=== PATIENT | male | born 1950 | race Caucasian/White ===

== ENCOUNTER 2019-02-16 06:03 | Inpatient (IN) ==
[2019-02-16] MEDS ORDERED: Ipratropium/Albuterol Neb 3 ML IH ONE (06:35)
[2019-02-16] MEDS ORDERED: 0.9 % Sodium Chloride 1,000 ML IVC ONE ×3 (06:35→11:45)
--- NOTE | 2019-02-16 06:38 | Emergency Department Note ---
Disposition Clinical Impression: Pneumonia Qualifiers: Pneumonia type: due to unspecified organism Laterality: bilateral Lung location: lower lobe of lung Qualified Code(s): J18.1 - Lobar pneumonia, unspecified organism Disposition: Admitted As Inpatient Condition: Fair Referrals: Mauricio Guerra MD [Primary Care Provider] - Forms: ED Satisfaction Letter Time of Disposition: 07:59 SOB HPI - General Chief Complaint: ED Shortness of Breath/Dyspnea Stated Complaint: shortness of breath Time Seen by Provider: 02/16/19 06:31 Source: patient, family Mode of arrival: private vehicle Limitations: no limitations Nursing Notes Reviewed: Yes Vital Signs Reviewed: Yes - History of Present Illness Pt Subjective Complaint: shortness of breath, cough Onset (ago): day(s) (2 days) Severity: moderate Consistency/Duration: constant Improves with: nothing Worsens with: exertion Associated symptoms: Reports: fever, sputum production Treatment prior to arrival: none Cough present: Yes Cough Description: Productive Cough Frequency: Intermittent Sputum production: Yes Sputum Color: Yellow - Related Data Home oxygen amount: none Home Medications Medication Instructions Recorded Confirmed Aspirin 81 mg PO HS 03/19/15 02/16/19 Atorvastatin [Lipitor] 10 mg PO HS 03/19/15 02/16/19 Diazepam [Valium] 10 mg PO TID 03/19/15 02/16/19 Esomeprazole Magnesium [Nexium] 40 mg PO DAILY 03/19/15 02/16/19 Gabapentin [Neurontin] 600 - 1,200 mg PO TID PRN 03/19/15 02/16/19 Lisinopril [Zestril] 20 mg PO DAILY PRN 03/19/15 02/16/19 Multivitamin/Iron/Folic Acid 1 each PO DAILY 03/19/15 02/16/19 [Centrum Complete Multivit Tab] Tamsulosin [Flomax] 0.8 mg PO HS 03/19/15 02/16/19 Vitamin E 400 unit PO DAILY 03/19/15 02/16/19 Cholecalciferol (D-3) [Vitamin D] 1,000 unit PO DAILY 06/21/16 02/16/19 [place]-3/Dha/Epa/Fish Oil [Fish Oil 1,000 mg PO DAILY 06/21/16 02/16/19 1,000 mg Softgel] Escitalopram [Lexapro] 10 mg PO DAILY 06/24/16 02/16/19 Allergies Allergy/AdvReac Type Severity Reaction Status Date / Time No Known Allergies Allergy Verified 05/23/17 09:37 All systems ED: reviewed and negative except as stated. Constitutional: Reports: fever, chills ENT ED: Denies: ear pain, throat pain, congestion Cardiovascular: Denies: chest pain, palpitations Respiratory: Reports: cough, dyspnea Gastrointestinal: Denies: abdominal pain, vomiting, diarrhea Integumentary: Denies: rash Neurological: Denies: headache Past Medical History - Past Medical History Attestation: Yes The following information was validated with the patient. Source: patient, old records reviewed, nursing notes reviewed Medical history: Reports: CVA, hyperlipidemia, hypertension Surgical history: Reports: cataract, herniorrhaphy (Right inguinal hernia repair), orthopedic, other, sinus surgery, other Psychiatric history: Reports: anxiety, depression, other - Social History Smoking Status: Former smoker Smokeless Tobacco Status: No Alcohol use: Reports: none Drug use: Reports: none Physical Exam - General Limitations: no limitations General appearance: alert, in no apparent distress - Head Head exam: atraumatic, normocephalic, normal inspection - Eye Eye exam: Present: normal appearance, PERRL, EOMI. Absent: scleral icterus, conjunctival injection, nystagmus - ENT ENT exam: normal exam, normal oropharynx, mucous membranes moist, TM's normal bilaterally, normal external ear exam - Neck Neck exam: Present: normal inspection, full ROM, trachea midline. Absent: meningismus - Chest Chest inspection: Present: normal inspection, symmetric chest wall rise. Absent: tenderness - Respiratory Respiratory exam: Present: normal lung sounds bilaterally. Absent: respiratory distress, wheezes - Cardiovascular Cardiovascular exam: Present: normal rhythm, tachycardia, normal heart sounds - Abdominal Exam Abdominal exam: Present: soft, Non-Tender, normal bowel sounds - Extremities Exam Extremities exam: Present: normal inspection. Absent: pedal edema - Neurological Exam Neurological exam: Present: alert, oriented X3. Absent: motor sensory deficit - Psychiatric Psychiatric exam: Present: normal affect, normal mood - Skin Skin exam: Present: warm, dry. Absent: rash Course Course Narrative: Patient presents with cough and shortness of breath and if she has a fever as well. He will O2 sat on arrival and we have monitored Ventimask Certainly concerning for pneumonia. He does meet SIRS criteria. I will get him some antipyretic and some IV fluids and breathing treatments. Short of breath workup including chest x-ray and lab work. Disposition will be based on diagnostic results and reevaluation. - Reevaluation(s) Reevaluation #1: Chest x-ray shows bilateral lower lobe pneumonia. Although patient came in tachycardic his heart rate is down in the 90s now. His blood pressure was fine when he came in but he did have one reading that dipped into the 90s but that was while sitting him up to do something. Now his systolic is around 115. Clinically he looks much better. He is talkative. We have cut down his oxygen to 5 L through mask and his sat is 93%. We have ordered antibiotics. I spoke with the hospitalist and arranged admission. Time: 07:58 - Consultations Consultation #1: Dr. Arvizu, hospitalist - I discussed case with the hospitalist. He accepted the patient for admission. Time: 07:55 Vital Signs Temperature 101.7 F H 02/16/19 06:04 Pulse Rate 124 02/16/19 06:04 Respiratory Rate 26 02/16/19 06:04 Blood Pressure 120/67 02/16/19 06:04 O2 Sat by Pulse Oximetry 80 02/16/19 06:04 Temperature 101.7 F H 02/16/19 06:04 Pulse Rate 103 02/16/19 06:24 Respiratory Rate 24 02/16/19 06:36 Blood Pressure 132/68 02/16/19 06:24 O2 Sat by Pulse Oximetry 94 02/16/19 06:36 Oxygen Delivery Oxygen Delivery Oximizer Shortness of Breath/Dyspnea - Medical Records Medical records reviewed: Yes I reviewed the patient's medical records. - Lab Data Lab results reviewed: Yes I reviewed the patient's lab results. Result diagrams: 02/16/19 07:24 02/16/19 06:58 Lab Results 02/16/19 02/16/19 02/16/19 Range/Units 06:58 07:24 07:24 WBC 13.4 H (4.3-11.1) K/mcL RBC 4.90 (4.19-5.50) M/mcL Hgb 15.6 (12.9-16.9) g/dL Hct 46.9 (37.5-50.1) % MCV 95.7 (83.0-100.0) fL MCH 31.8 (28.0-33.3) pg MCHC 33.3 (31.6-35.5) g/dL RDW 12.0 (11.5-14.5) % Plt Count 242 (140-400) K/mcL MPV 9.3 L (9.4-12.4) fL Immature Gran % 0.4 (0-4) % Seg Neutrophils % 77.2 % Lymphocytes % 14.7 % Monocytes % 7.0 % Eosinophils % 0.4 % Basophils % 0.3 % Neutrophils # 10.3 H (1.6-8.9) K/mcL Lymphocytes # 2.0 (0.6-4.6) K/mcL Monocytes # 0.9 (0.0-1.3) K/mcL Eosinophils # 0.1 (0.0-0.6) K/mcL Basophils # 0.0 (0.0-0.2) K/mcL Sodium 136 (136-145) mEq/L Potassium 3.7 (3.5-5.1) mEq/L Chloride 99 (98-107) mEq/L Carbon Dioxide 27 (23-29) mEq/L BUN 11 (8-23) mg/dL Creatinine 1.49 H (0.70-1.30) mg/dL Est GFR ( Amer) 57 L (> 60) Est GFR (Non-Af Amer) 47 L (> 60) BUN/Creatinine Ratio 7 (6-26) Glucose 127 H (70-105) mg/dL Calculated Osmolality 283 (280-300) Lactic Acid 2.4 H (0.5-2.2) mmol/L Calcium 8.7 (8.6-10.3) mg/dL Troponin I < 0.03 (< 0.04) ng/mL B-Natriuretic Peptide (Less than 100) pg/mL 02/16/19 Range/Units 07:24 WBC (4.3-11.1) K/mcL RBC (4.19-5.50) M/mcL Hgb (12.9-16.9) g/dL Hct (37.5-50.1) % MCV (83.0-100.0) fL MCH (28.0-33.3) pg MCHC (31.6-35.5) g/dL RDW (11.5-14.5) % Plt Count (140-400) K/mcL MPV (9.4-12.4) fL Immature Gran % (0-4) % Seg Neutrophils % % Lymphocytes % % Monocytes % % Eosinophils % % Basophils % % Neutrophils # (1.6-8.9) K/mcL Lymphocytes # (0.6-4.6) K/mcL Monocytes # (0.0-1.3) K/mcL Eosinophils # (0.0-0.6) K/mcL Basophils # (0.0-0.2) K/mcL Sodium (136-145) mEq/L Potassium (3.5-5.1) mEq/L Chloride (98-107) mEq/L Carbon Dioxide (23-29) mEq/L BUN (8-23) mg/dL Creatinine (0.70-1.30) mg/dL Est GFR ( Amer) (> 60) Est GFR (Non-Af Amer) (> 60) BUN/Creatinine Ratio (6-26) Glucose (70-105) mg/dL Calculated Osmolality (280-300) Lactic Acid (0.5-2.2) mmol/L Calcium (8.6-10.3) mg/dL Troponin I (< 0.04) ng/mL B-Natriuretic Peptide 62 (Less than 100) pg/mL - Radiology Data Radiology results reviewed: Yes I reviewed the patient's radiology results. - EKG Data EKG attestation: Yes I reviewed and interpreted this EKG. EKG results narrative: Twelve-lead EKG performed at 6:03 AM. Ordered, reviewed and interpreted by ED physician shows sinus tachycardia rate 111. Right axis deviation. Good hour progression across to precordium. Nonspecific ST and T-wave abnormalities but no obvious acute ischemic changes. Intervals within normal limits otherwise.
[2019-02-16] MEDS ORDERED: Ibuprofen 800 MG TABLET PO ONE (06:42)
[2019-02-16 07:33] LABS: Basophils % 0.3 %; Eosinophils # 0.1 K/mcL (0.0-0.6); Eosinophils % 0.4 %; Hematocrit 46.9 % (37.5-50.1); Hemoglobin 15.6 g/dL (12.9-16.9); Immature Granulocytes % 0.4 % (0-4); Lymphocytes % 14.7 %; Mean Corpuscular HGB Conc 33.3 g/dL (31.6-35.5); Mean Corpuscular Hemoglobin 31.8 pg (28.0-33.3); Mean Corpuscular Volume 95.7 fL (83.0-100.0); Mean Platelet Volume 9.3 fL (9.4-12.4); Monocytes # 0.9 K/mcL (0.0-1.3); Neutrophils # 10.3 K/mcL (1.6-8.9); Platelet Count 242 K/mcL (140-400); Segmented Neutrophils % 77.2 %; White Blood Count 13.4 K/mcL (4.3-11.1)
[2019-02-16 07:38] LABS: BUN/Creatinine Ratio 7 (6-26); Blood Urea Nitrogen 11 mg/dL (8-23); Calcium 8.7 mg/dL (8.6-10.3); Carbon Dioxide 27 mEq/L (23-29); Chloride 99 mEq/L (98-107); Glucose 127 mg/dL (70-105); Osmolality,Calculated 283 (280-300); Potassium 3.7 mEq/L (3.5-5.1); Sodium 136 mEq/L (136-145); eGFR For African Americans 57 (> 60); eGFR For Non-African Americans 47 (> 60)
[2019-02-16] MEDS ORDERED: Azithromycin 500 MG in D5% in Water 250 ML IVPB ONE (07:50)
[2019-02-16 07:51] LABS: Troponin I < 0.03 ng/mL (< 0.04)
[2019-02-16] MEDS ORDERED: 0.9 % Sodium Chloride 1,000 ML IVC SCH (08:00)
[2019-02-16] MEDS ORDERED: Ondansetron ODT 4 MG TAB.RAPDIS SL PRN (08:00)
[2019-02-16] MEDS ORDERED: Naloxone 0.4 MG/ML INJ IVP PRN (08:00)
[2019-02-16] MEDS ORDERED: Gabapentin 300 MG CAPSULE PO PRN (08:02)
[2019-02-16] MEDS ORDERED: Lisinopril 20 MG TABLET PO PRN (08:02)
[2019-02-16] MEDS ORDERED: cefTRIAXone 1,000 MG in 0.9 % Sodium Chloride Mini Bag 100 ML IVPB SCH (09:00)
[2019-02-16] MEDS: Azithromycin 500 MG in D5% in Water 250 ML IVPB SCH (09:02)
--- NOTE | 2019-02-16 11:45 | Internal Med History&Physical ---
Date of Encounter: 02/16/19 Time of Encounter: 11:05 Assessment and Plan (1) Severe sepsis Current visit: Yes Status: Acute Suspect due to pneumonia. Pro-calcitonin has been ordered. Antibiotics have been started. IV fluid boluses have been ordered. Repeat lactic acid level will be done. (2) Pneumonia Current visit: Yes Status: Acute Continue Rocephin and Zithromax. Add lactobacillus. Pro-calcitonin level has been ordered. Qualifiers: Pneumonia type: due to unspecified organism Laterality: bilateral Lung location: lower lobe of lung Qualified Code(s): J18.1 - Lobar pneumonia, unspecified organism (3) Hypertension Current visit: Yes Status: Chronic Lisinopril will be held due to hypotension. IV fluids have been ordered. Qualifiers: Hypertension type: essential hypertension Qualified Code(s): I10 - Essential (primary) hypertension (4) BPH (benign prostatic hyperplasia) Current visit: Yes Status: Chronic Continue Flomax Qualifiers: Lower urinary tract symptom presence: symptoms present Lower urinary tract symptom detail: unspecified Qualified Code(s): N40.1 - Benign prostatic hyperplasia with lower urinary tract symptoms Internal Medicine - H&P: HPI Chief complaint: Fever and dyspnea Admitted From: Emergency Dept Plans for Post Hospital Care: Home History of present illness: Mr. Carrillo is a 68 year old male who came to emergency room after experiencing increased dyspnea with minimally productive cough, fever up to 103.5, sore throat, and diarrhea over the proceeding 2 days. He initially declined his 's suggestion to come to emergency room but approximately 0500 today requested to come to ER. He was evaluated and found to have evidence of bibasilar infiltrate, leukocytosis with slight left shift, elevated lactic acid level, and azotemia. He was admitted to [facility] floor for ongoing care needs. He reports a grandchild was sick a few days earlier with similar but less severe illness. He denies pain at present time other than chronic facial pain. Respiratory history is significant for having smoked from age [age] up to 2 pack s per day. He does not have documented chronic lung disease. He was diagnosed with RENZO in the past and underwent UPPP and does not presently use CPAP/BiPAP. Past Med Surg Social Fam HX - Past Medical History Medical history: CVA, hyperlipidemia, hypertension Additional medical history: Hypomania, dystonia Psychiatric history: anxiety, depression, other - Past Surgical History Surgical History: cataract, herniorrhaphy (Right inguinal hernia repair), orthopedic, other, sinus surgery, other Additional surgical history: lt knee replacement. bilat elbow. cataracts. T&A. sinus surgery. hernia repair. lt total knee replacement - Social History Smoking Status: Former smoker Smokeless Tobacco Status: No Alcohol use: none Drug use: none - Family History Brother Hx Family Cancer: Yes (Colon cancer) Mother Hx Family Cancer: Yes (Stomach) Internal Medicine - H&P: Meds Aspirin 81 mg PO HS 03/19/15 [History] Atorvastatin [Lipitor] 10 mg PO HS 03/19/15 [History] Diazepam [Valium] 10 mg PO TID 03/19/15 [History] Esomeprazole Magnesium [Nexium] 40 mg PO DAILY 03/19/15 [History] Gabapentin [Neurontin] 600 - 1,200 mg PO TID PRN 03/19/15 [History] Lisinopril [Zestril] 20 mg PO DAILY PRN 03/19/15 [History] Multivitamin/Iron/Folic Acid [Centrum Complete Multivit Tab] 1 each PO DAILY 03/19/15 [History] Tamsulosin [Flomax] 0.8 mg PO HS 03/19/15 [History] Vitamin E 400 unit PO DAILY 03/19/15 [History] Cholecalciferol (D-3) [Vitamin D] 1,000 unit PO DAILY 06/21/16 [History] [place]-3/Dha/Epa/Fish Oil [Fish Oil 1,000 mg Softgel] 1,000 mg PO DAILY 06/21/16 [History] Escitalopram [Lexapro] 10 mg PO DAILY 06/24/16 [History] Allergy/AdvReac Type Severity Reaction Status Date / Time No Known Allergies Allergy Verified 05/23/17 09:37 All Systems PM: A 10-system review of systems was performed and is negative for pertinent findings except as documented above in the HPI. Review of systems: Gen.: His weight has been stable at approximately 108 kg since 10/30/2017. Cardiovascular: He has history of hypertension but no DC heart failure angina DVT or pulmonary embolus Respiratory: As per history of present illness GI: There is no known disorders of liver gallbladder or exocrine pancreas. He had blood loss anemia 2017 and had EGD, colonoscopy, and video endoscopy without etiology determined. He was given blood transfusions and there has been no recurrence of GI bleed. : No history of hematuria dysuria or kidney stones. He has BPH and a chronic kidney cysts felt to be benign. Neurologic: He has had a slight speech impairment and disequilibrium for several years. MRI of brain 08/22/2018 showed no acute intracranial abnormality or obvious infarct. There was opacification of the left maxillary sinus. He has chronic facial pain and is on Neurontin. Endocrine: He has history of hyperlipidemia. He has a thyroid nodule felt to be benign. There is no known diabetes. Hematology/oncology: He has history of anemia from GI bleed as per above. There is no known intrinsic blood disorders or internal malignancies otherwise Psychiatric: He has depression but denies anxiety other mental health issues [place] skeletal: He has ulnar compression neuropathy intermittently bilaterally with numbness of the hands. He has chronic low back pain. He does not have gout or other bone joint or muscle disorders. - Constitutional Vitals: Temp Pulse Resp BP Pulse Ox 98.5 F 87 18 79/50 92 02/16/19 09:23 02/16/19 09:23 02/16/19 09:23 02/16/19 09:23 02/16/19 09:23 Exam: Gen.: He is a well-developed well-nourished male lying in bed who appears minimally dyspneic HEENT: Head is atraumatic and normocephalic. Eyes: EOMI. There is no scleral icterus. Mouth: Mucosa is moist. Neck: Supple and nontender. There is no thyromegaly or adenopathy noted. Heart: Regular without murmurs gallops or ectopics Lungs: No wheezes or crackles are heard. Abdomen: Soft and nontender. No masses or guarding are noted. Extremities: There is no cyanosis edema or clubbing noted. Dorsalis pedis and posterior tibial pulses are 1-2 over 2 bilaterally. Neurologic: Mental status: He is able to answer questions but is not conversational. Cranial nerves: Smile is symmetric. Forehead wrinkles bilaterally. Tongue protrudes midline. EOMI. Motor: There is no pronator drift. Cerebellar: Finger to nose is intact bilaterally. Skin: Warm and dry Internal Med - H&P Results - Labs CBC & Chem 7: 02/16/19 07:24 02/16/19 06:58 Labs: Short CBC 02/16/19 Range/Units 07:24 WBC 13.4 H (4.3-11.1) K/mcL Hgb 15.6 (12.9-16.9) g/dL Hct 46.9 (37.5-50.1) % Plt Count 242 (140-400) K/mcL Neutrophils # 10.3 H (1.6-8.9) K/mcL BMP 02/16/19 06:58 Sodium 136 Potassium 3.7 Chloride 99 Carbon Dioxide 27 BUN 11 Creatinine 1.49 H Glucose 127 H Calcium 8.7 Cardiac Enzymes 02/16/19 Range/Units 06:58 Troponin I < 0.03 (< 0.04) ng/mL - Impressions ITS Impressions Chest X-Ray 02/16/19 06:35 IMPRESSION: Bibasilar airspace disease, representing either aspiration or pneumonia. D/ / 02/16/2019 09:02:51 Ilya Velazquez MD / [facility] Interpreting Provider: Ilya Velazquez MD
[2019-02-16] MEDS ORDERED: Ipratropium/Albuterol Neb 3 ML IH SCH (12:00)
[2019-02-16] MEDS: 0.9 % Sodium Chloride 1,000 ML IVC SCH ×2 (12:27→14:40)
[2019-02-16 12:59] LABS: Basophils % 0.3 %; Eosinophils % 0.1 %; Hematocrit 39.3 % (37.5-50.1); Hemoglobin 13.1 g/dL (12.9-16.9); Immature Granulocytes % 0.4 % (0-4); Lymphocytes # 1.1 K/mcL (0.6-4.6); Mean Corpuscular HGB Conc 33.3 g/dL (31.6-35.5); Mean Corpuscular Hemoglobin 32.3 pg (28.0-33.3); Mean Corpuscular Volume 96.8 fL (83.0-100.0); Mean Platelet Volume 9.2 fL (9.4-12.4); Monocytes # 0.9 K/mcL (0.0-1.3); Monocytes % 8.1 %; Neutrophils # 8.9 K/mcL (1.6-8.9); Platelet Count 195 K/mcL (140-400); Red Blood Count 4.06 M/mcL (4.19-5.50); Red Cell Distribution Width 12.3 % (11.5-14.5); Segmented Neutrophils % 81.1 %; White Blood Count 10.9 K/mcL (4.3-11.1)
[2019-02-16] MEDS: Gabapentin 300 MG CAPSULE PO SCH ×2 (13:03→19:57)
[2019-02-16] MEDS: diazePAM 5 MG TABLET PO SCH ×3 (13:03→19:58)
[2019-02-16 13:11] LABS: Calcium 7.2 mg/dL (8.6-10.3); Potassium 3.9 mEq/L (3.5-5.1)
[2019-02-16] MEDS ORDERED: 0.9 % Sodium Chloride 500 ML IVC ONE (13:41)
[2019-02-16 14:23] LABS: Bilirubin,Urine Negative (Negative); Blood,Urine Moderate (Negative); Clarity,Urine Clear (Clear); Color,Urine Yellow (Yellow); Glucose,Urine (UA) Normal (Normal); Ketones,Urine Negative (Negative); Leukocyte Esterase,Urine Negative (Negative); Nitrite,Urine Negative (Negative); PH,Urine 5.5 pH Units (5.0-8.0); Protein,Urine Negative (Neg-Trace); Urobilinogen,Urine Normal (Normal)
[2019-02-16 14:30] LABS: Granular Casts,Urine Few per lpf (None Seen); Hyaline Casts,Urine Few per lpf (None-Few); Mucus,Urine Few (Few); RBC,Urine 50-100 per hpf (0-3); Renal Epithelial Cells,Urine Few per hpf (None-Few); Squamous Epithelial Cell,Urine Few per lpf (None-Few); WBC,Urine 0-3 per hpf (0-3)
[2019-02-16 14:31] LABS: Bacteria,Urine Few per hpf (None-Few)
[2019-02-16] MEDS: Lactobacillus 1 EACH CAP.SPRINK PO SCH (19:57)
[2019-02-16] MEDS: Aspirin 81 MG TAB.CHEW PO SCH (19:57)
[2019-02-17] MEDS: Acetaminophen 325 MG TABLET PO PRN ×4 (00:03→20:14)
[2019-02-17] MEDS: Gabapentin 300 MG CAPSULE PO SCH ×3 (03:15→20:13)
[2019-02-17 04:43] LABS: Basophils % 0.4 %; Eosinophils % 0.4 %; Hematocrit 43.6 % (37.5-50.1); Hemoglobin 14.4 g/dL (12.9-16.9); Immature Granulocytes % 0.5 % (0-4); Lymphocytes % 12.2 %; Mean Corpuscular Hemoglobin 32.1 pg (28.0-33.3); Mean Corpuscular Volume 97.1 fL (83.0-100.0); Mean Platelet Volume 9.1 fL (9.4-12.4); Monocytes # 0.7 K/mcL (0.0-1.3); Neutrophils # 6.4 K/mcL (1.6-8.9); Platelet Count 185 K/mcL (140-400); Red Blood Count 4.49 M/mcL (4.19-5.50); Red Cell Distribution Width 12.5 % (11.5-14.5); Segmented Neutrophils % 78.5 %; White Blood Count 8.2 K/mcL (4.3-11.1)
[2019-02-17 04:55] LABS: INR 1.3; Prothrombin Time 14.8 Seconds (9.4-12.1)
[2019-02-17 07:39] LABS: Alanine Aminotransferase 15 Units/L (7-52); Albumin 3.1 g/dL (3.5-5.7); Alkaline Phosphatase 116 Units/L (34-104); Aspartate Amino Transferase 16 Units/L (13-39); BUN/Creatinine Ratio 11 (6-26); Bilirubin,Total 0.5 mg/dL (0.3-1.0); Blood Urea Nitrogen 13 mg/dL (8-23); Carbon Dioxide 28 mEq/L (23-29); Chloride 109 mEq/L (98-107); Globulin 3.1 g/dL (2.4-3.5); Glucose 100 mg/dL (70-105); Osmolality,Calculated 292 (280-300); Potassium 4.1 mEq/L (3.5-5.1); Sodium 141 mEq/L (136-145); Total Protein 6.2 g/dL (6.4-8.9); eGFR For African Americans > 60 (> 60); eGFR For Non-African Americans > 60 (> 60)
[2019-02-17] MEDS: cefTRIAXone 1,000 MG in Water for inj. (sterile) 10 ML IVP SCH (08:09)
[2019-02-17] MEDS: diazePAM 5 MG TABLET PO SCH ×3 (08:10→20:13)
[2019-02-17] MEDS: Azithromycin 500 MG in D5% in Water 250 ML IVPB SCH (08:11)
[2019-02-17] MEDS: Lactobacillus 1 EACH CAP.SPRINK PO SCH ×2 (08:11→20:14)
[2019-02-17] MEDS: Albuterol 2.5 MG/3 ML NEBULIZER IH PRN ×2 (08:43→18:07)
--- NOTE | 2019-02-17 09:36 | Electrocardiograph Report ---
[employer] Test Date: 2019-02-16 Pat Name: Tommy Carrillo Department: EDP-16 Room: [facility] Gender: M Lsat Instructor: : 1950 Requested By: Ralph Stockton Order Number: [id number] Reading MD: Akin Tidwell Measurements Intervals [place] Rate: 111 P: 78 [place]: 158 QRS: 98 QRSD: 97 T: 90 QT: 357 QTc: 486 Interpretive Statements Sinus tachycardia Borderline right axis deviation Nonspecific T abnormalities, lateral leads Borderline prolonged QT interval Electronically Signed On 02-17-2019 9:34:50 EDT by Akin Tidwell
--- NOTE | 2019-02-17 10:15 | Internal Med Progress Note ---
Date of Encounter: 02/17/19 Time of Encounter: 10:07 - Assessment and plan (1) Severe sepsis Current Visit: Yes Status: Acute Assessment and plan: February 17. Improved. Lactic acid now normal. WBC decreased with less left shift. Continue Rocephin and Zithromax with lactobacillus. (2) Pneumonia Current Visit: Yes Status: Acute Assessment and plan: February 17. As above Qualifiers: Pneumonia type: due to unspecified organism Laterality: bilateral Lung location: lower lobe of lung Qualified Code(s): J18.1 - Lobar pneumonia, unspecified organism (3) Hypertension Current Visit: Yes Status: Chronic Assessment and plan: February 17. Blood pressure improved and back to satisfactory level. Remain off lisinopril. Qualifiers: Hypertension type: essential hypertension Qualified Code(s): I10 - Essential (primary) hypertension (4) BPH (benign prostatic hyperplasia) Current Visit: Yes Status: Chronic Assessment and plan: February 17. Continue Flomax Qualifiers: Lower urinary tract symptom presence: symptoms present Lower urinary tract symptom detail: unspecified Qualified Code(s): N40.1 - Benign prostatic hyperplasia with lower urinary tract symptoms (5) Azotemia Current Visit: Yes Status: Acute Assessment and plan: February 17. Creatinine has decreased from 1.74 to normal level of 1.15 with estimat ed GFR> 60. - Subjective Interval history: February 17. He has no new complaints and feels better. - Constitutional Vitals: Temp Pulse Resp BP Pulse Ox 100.1 F H 95 18 135/83 93 02/17/19 06:46 02/17/19 06:46 02/17/19 08:44 02/17/19 06:46 02/17/19 08:44 Exam: He is resting comfortably in bed and appears in no acute distress. He is more alert and talkative today. Skin shows decreased erythema overall. He is wearing oxygen by nasal cannula. I reviewed his medications and lab results. Internal Medicine: Result - Labs CBC & Chem 7: 02/17/19 04:35 02/17/19 04:35 Labs: Short CBC 02/16/19 02/17/19 Range/Units 12:24 04:35 WBC 10.9 8.2 (4.3-11.1) K/mcL Hgb 13.1 D 14.4 (12.9-16.9) g/dL Hct 39.3 43.6 (37.5-50.1) % Plt Count 195 185 (140-400) K/mcL Neutrophils # 8.9 6.4 (1.6-8.9) K/mcL BMP 02/16/19 02/17/19 12:24 04:35 Sodium 138 141 Potassium 3.9 4.1 Chloride 105 109 H Carbon Dioxide 25 28 BUN 13 13 Creatinine 1.74 H 1.15 Glucose 131 H 100 Calcium 7.2 L 8.0 L Liver Function 02/17/19 Range/Units 04:35 Total Bilirubin 0.5 (0.3-1.0) mg/dL AST 16 (13-39) Units/L ALT 15 (7-52) Units/L Alkaline Phosphatase 116 H (34-104) Units/L Albumin 3.1 L (3.5-5.7) g/dL Urine 02/16/19 Range/Units 14:05 Urine Color Yellow (Yellow) Urine Clarity Clear (Clear) Urine pH 5.5 (5.0-8.0) pH Units Ur Specific [place] 1.010 (1.010-1.025) Urine Protein Negative (Neg-Trace) mg/dL Urine Glucose (UA) Normal (Normal) mg/dL - ABG Interpretation ABG results: PT/INR, D-dimer PT 14.8 Seconds (9.4-12.1) H 02/17/19 04:35 - Impressions Impressions Chest X-Ray 02/16/19 06:35 IMPRESSION: Bibasilar airspace disease, representing either aspiration or pneumonia. D/ / 02/16/2019 09:02:51 Ilya Velazquez MD / [facility] Interpreting Provider: Ilya Velazquez MD Consult Discharge Plan - Plan Referrals: Mauricio Guerra MD [Primary Care Provider] - 1 week
[2019-02-17] MEDS: Aspirin 81 MG TAB.CHEW PO SCH (20:14)
[2019-02-18] MEDS: Gabapentin 300 MG CAPSULE PO SCH ×3 (04:49→20:09)
[2019-02-18 07:38] LABS: Basophils % 0.5 %; Eosinophils # 0.3 K/mcL (0.0-0.6); Eosinophils % 4.5 %; Hematocrit 41.9 % (37.5-50.1); Hemoglobin 13.7 g/dL (12.9-16.9); Immature Granulocytes % 0.3 % (0-4); Lymphocytes # 1.4 K/mcL (0.6-4.6); Lymphocytes % 23.3 %; Mean Corpuscular HGB Conc 32.7 g/dL (31.6-35.5); Mean Corpuscular Hemoglobin 32.1 pg (28.0-33.3); Mean Corpuscular Volume 98.1 fL (83.0-100.0); Monocytes # 0.5 K/mcL (0.0-1.3); Neutrophils # 3.6 K/mcL (1.6-8.9); Platelet Count 198 K/mcL (140-400); Red Blood Count 4.27 M/mcL (4.19-5.50); Red Cell Distribution Width 12.6 % (11.5-14.5); Segmented Neutrophils % 62.4 %; White Blood Count 5.8 K/mcL (4.3-11.1)
[2019-02-18] MEDS: Lactobacillus 1 EACH CAP.SPRINK PO SCH ×2 (08:22→20:09)
[2019-02-18] MEDS: cefTRIAXone 1,000 MG in Water for inj. (sterile) 10 ML IVP SCH (08:22)
[2019-02-18] MEDS: diazePAM 5 MG TABLET PO SCH ×3 (08:22→20:09)
[2019-02-18] MEDS: Azithromycin 500 MG in D5% in Water 250 ML IVPB SCH (08:23)
[2019-02-18 08:25] LABS: BUN/Creatinine Ratio 11 (6-26); Blood Urea Nitrogen 11 mg/dL (8-23); Calcium 8.3 mg/dL (8.6-10.3); Carbon Dioxide 32 mEq/L (23-29); Chloride 107 mEq/L (98-107); Glucose 113 mg/dL (70-105); Osmolality,Calculated 296 (280-300); Potassium 4.2 mEq/L (3.5-5.1); Sodium 143 mEq/L (136-145); eGFR For African Americans > 60 (> 60); eGFR For Non-African Americans > 60 (> 60)
--- NOTE | 2019-02-18 09:49 | Internal Med Progress Note ---
Date of Encounter: 02/18/19 Time of Encounter: 09:42 - Assessment and plan (1) Severe sepsis Current Visit: Yes Status: Acute Assessment and plan: February 17. Improved. Lactic acid now normal. WBC decreased with less left shift. Continue Rocephin and Zithromax with lactobacillus. February 18. WBC further decreased with lessened left shift. Continue present Rx. Anticipate discharge home tomorrow if stable. (2) Pneumonia Current Visit: Yes Status: Acute Assessment and plan: February 17. As above Qualifiers: Pneumonia type: due to unspecified organism Laterality: bilateral Lung location: lower lobe of lung Qualified Code(s): J18.1 - Lobar pneumonia, unspecified organism (3) Hypertension Current Visit: Yes Status: Chronic Assessment and plan: February 17. Blood pressure improved and back to satisfactory level. Remain off lisinopril. Qualifiers: Hypertension type: essential hypertension Qualified Code(s): I10 - Essential (primary) hypertension (4) BPH (benign prostatic hyperplasia) Current Visit: Yes Status: Chronic Assessment and plan: February 17. Continue Flomax February 18. Continue Flomax and start Proscar. Discontinue [place] catheter. Qualifiers: Lower urinary tract symptom presence: symptoms present Lower urinary tract symptom detail: unspecified Qualified Code(s): N40.1 - Benign prostatic hyperplasia with lower urinary tract symptoms (5) Azotemia Current Visit: Yes Status: Acute Assessment and plan: February 17. Creatinine has decreased from 1.74 to normal level of 1.15 with estima madhavi GFR> 60. February 18. BUN and creatinine further decreased to 11 and 1.02 respectively. - Subjective Interval history: February 17. He has no new complaints and feels better. February 18. He has no new complaints. He states he has cough productive of occasional yellow sputum. He denies significant pain. - Constitutional Vitals: Temp Pulse Resp BP Pulse Ox 98.4 F 72 17 127/78 97 02/18/19 07:00 02/18/19 07:00 02/18/19 07:00 02/18/19 07:00 02/18/19 07:00 Exam: He is resting comfortably in bed and appears in no acute distress. His affect is overall cheerful. He is wearing oxygen by nasal cannula. I reviewed his medications and lab results. Internal Medicine: Result - Labs CBC & Chem 7: 02/18/19 07:31 02/18/19 07:31 Labs: Short CBC 02/18/19 Range/Units 07:31 WBC 5.8 (4.3-11.1) K/mcL Hgb 13.7 (12.9-16.9) g/dL Hct 41.9 (37.5-50.1) % Plt Count 198 (140-400) K/mcL Neutrophils # 3.6 (1.6-8.9) K/mcL BMP 02/18/19 07:31 Sodium 143 Potassium 4.2 Chloride 107 Carbon Dioxide 32 H BUN 11 Creatinine 1.02 Glucose 113 H Calcium 8.3 L - ABG Interpretation ABG results: PT/INR, D-dimer PT 14.8 Seconds (9.4-12.1) H 02/17/19 04:35 Consult Discharge Plan - Plan Referrals: Mauricio Guerra MD [Primary Care Provider] - 1 week
[2019-02-18] MEDS: Finasteride 5 MG TABLET PO SCH (11:48)
[2019-02-18] MEDS: Aspirin 81 MG TAB.CHEW PO SCH (20:09)
[2019-02-19] MEDS: Gabapentin 300 MG CAPSULE PO SCH ×2 (03:30→12:18)
[2019-02-19 06:34] VITALS: BP 142/95
--- NOTE | 2019-02-19 09:37 | Discharge Summary ---
Orders not resulted at time of discharge: Pending orders 02/16/19 07:24 Culture,Blood [] Stat Date of Encounter: 02/19/19 Time of Encounter: 09:28 - Discharge Diagnosis (1) Severe sepsis Priority: Primary Status: Resolved (2) Pneumonia Priority: Secondary Status: Acute Qualifiers: Pneumonia type: due to unspecified organism Laterality: bilateral Lung location: lower lobe of lung Qualified Code(s): J18.1 - Lobar pneumonia, unspecified organism (3) Hypertension Priority: Secondary Status: Chronic Qualifiers: Hypertension type: essential hypertension Qualified Code(s): I10 - Essential (primary) hypertension (4) BPH (benign prostatic hyperplasia) Priority: Secondary Status: Chronic Qualifiers: Lower urinary tract symptom presence: symptoms present Lower urinary tract symptom detail: unspecified Qualified Code(s): N40.1 - Benign prostatic hyperplasia with lower urinary tract symptoms (5) Azotemia Priority: Secondary Status: Resolved Hospital course: Mr. Carrillo is a 68 year old male who came to emergency room after experiencing increased dyspnea with minimally productive cough, fever up to 103.5, sore throat, and diarrhea over the proceeding 2 days. He initially declined his 's suggestion to come to emergency room but approximately 0500 today requested to come to ER. He was evaluated and found to have evidence of bibasilar infiltrate, leukocytosis with slight left shift, elevated lactic acid level, and azotemia. He was admitted to [facility] floor for ongoing care needs. Initial orders were written by the emergency room physician. I saw him on February 16 and performed a history and physical. He was started empirically on Rocephin and Zithromax with lactobacillus. Pro-calcitonin level returned elevated at 3.27. He had good clinical response with gradual normalization of blood pressure. He remained afebrile the last 24 hours of hospitalization. Pro- calcitonin level decreased to 1.52 by February 18. His mental status returned to what I felt was baseline. On February 19 he felt stable for discharge home. He will continue with antibiotic and probiotic for 5 additional days at discharge. Room air oximetry will be checked on 6 minute walk prior to discharge. Lisinopril was held during hospitalization due to hypotension. IV fluids were given. His blood pressure olegario to borderline elevated by time of discharge and he will restart lisinopril at discharge. He had urinary retention and required [place] catheter insertion. Flomax was continued and Proscar was started. [place] catheter was discontinued and he was able to void satisfactorily prior to discharge. He will remain on Flomax and Proscar. He will follow with his PCP Dr. Guerra within 1 week. - Time Spent with Patient Total time spent providing and/or coordinating discharge services: - Discharge Medications Prescriptions: New Cefuroxime PO [Ceftin] 500 mg PO Q12HR #10 tablet Lactobacillus [Culturelle] 1 each PO BID #10 cap.sprink Finasteride [Proscar] 5 mg PO DAILY #30 tablet Azithromycin [Zithromax] 250 mg PO DAILY #5 tablet Continued [place]-3/Dha/Epa/Fish Oil [Fish Oil 1,000 mg Softgel] 1,000 mg PO DAILY Tamsulosin [Flomax] 0.8 mg PO HS Lisinopril [Zestril] 20 mg PO DAILY PRN PRN Reason: Blood Pressure - High Diazepam [Valium] 10 mg PO TID Atorvastatin [Lipitor] 10 mg PO HS Aspirin 81 mg PO HS Multivitamin/Iron/Folic Acid [Centrum Complete Multivit Tab] 1 each PO DAILY Gabapentin [Neurontin] 600 - 1,200 mg PO TID PRN PRN Reason: Pain Vitamin E 400 unit PO DAILY Esomeprazole Magnesium [Nexium] 40 mg PO DAILY Escitalopram [Lexapro] 10 mg PO DAILY Home Medications: Aspirin 81 mg PO HS 03/19/15 [History] Atorvastatin [Lipitor] 10 mg PO HS 03/19/15 [History] Diazepam [Valium] 10 mg PO TID 03/19/15 [History] Esomeprazole Magnesium [Nexium] 40 mg PO DAILY 03/19/15 [History] Gabapentin [Neurontin] 600 - 1,200 mg PO TID PRN 03/19/15 [History] Lisinopril [Zestril] 20 mg PO DAILY PRN 03/19/15 [History] Multivitamin/Iron/Folic Acid [Centrum Complete Multivit Tab] 1 each PO DAILY 03/19/15 [History] Tamsulosin [Flomax] 0.8 mg PO HS 03/19/15 [History] Vitamin E 400 unit PO DAILY 03/19/15 [History] [place]-3/Dha/Epa/Fish Oil [Fish Oil 1,000 mg Softgel] 1,000 mg PO DAILY 06/21/16 [History] Escitalopram [Lexapro] 10 mg PO DAILY 06/24/16 [History] Azithromycin [Zithromax] 250 mg PO DAILY #5 tablet 02/19/19 [Rx] Cefuroxime PO [Ceftin] 500 mg PO Q12HR #10 tablet 02/19/19 [Rx] Finasteride [Proscar] 5 mg PO DAILY #30 tablet 02/19/19 [Rx] Lactobacillus [Culturelle] 1 each PO BID #10 cap.sprink 02/19/19 [Rx] Allergies/Adverse Reactions: Allergy/AdvReac Type Severity Reaction Status Date / Time No Known Allergies Allergy Verified 05/23/17 09:37 Date of admission: 02/16/19 11:59 Primary care physician: Mauricio Guerra MD - Constitutional Vitals: Temp Pulse Resp BP Pulse Ox 98.3 F 67 18 142/95 93 02/19/19 06:33 02/19/19 06:33 02/19/19 06:33 02/19/19 06:33 02/19/19 06:33 - Patient Status Disposition: Home, Self-Care Condition: Fair - Discharge Instructions Follow Up With: Mauricio Guerra MD [Primary Care Provider] - 1 week - Diet and Activity Activity: resume usual activities as tolerated Diet: advance to your usual diet
[2019-02-19] MEDS: Azithromycin 500 MG in D5% in Water 250 ML IVPB SCH (09:50)
[2019-02-19] MEDS: Lactobacillus 1 EACH CAP.SPRINK PO SCH (09:55)
[2019-02-19] MEDS: diazePAM 5 MG TABLET PO SCH (09:56)
[2019-02-19] MEDS: Finasteride 5 MG TABLET PO SCH (09:56)
[2019-02-19] MEDS: cefTRIAXone 1,000 MG in Water for inj. (sterile) 10 ML IVP SCH (10:03)
== END 2019-02-19 13:55 | disposition home or self-care (01) | DRG 871 ==
LOC: EMEROOPIK 06:03 → INPPIK 06:03
PROVIDERS: ADMIT Internal Medicine; ATTEND Internal Medicine

== ENCOUNTER 2020-03-23 10:58 | Inpatient (IN) ==
[2020-03-23] MEDS ORDERED: methylPREDNISolone 125 MG/2 ML VIAL IVP ONE (11:03)
[2020-03-23] MEDS ORDERED: cefTRIAXone 2,000 MG in Water for inj. (sterile) 10 ML IVP ONE (11:03)
[2020-03-23] MEDS ORDERED: Azithromycin 500 MG in 0.9 % Sodium Chloride 250 ML IVPB ONE (11:03)
[2020-03-23] MEDS: 0.9 % Sodium Chloride 1,000 ML IVC SCH ×2 (11:22→22:53)
[2020-03-23 11:30] LABS: Basophils # 0.1 K/mcL (0.0-0.2); Basophils % 0.4 %; Eosinophils # 0.4 K/mcL (0.0-0.6); Eosinophils % 2.9 %; Hematocrit 45.5 % (37.5-50.1); Hemoglobin 15.4 g/dL (12.9-16.9); Immature Granulocytes % 0.5 % (0-4); Lymphocytes # 1.2 K/mcL (0.6-4.6); Lymphocytes % 9.7 %; Mean Corpuscular HGB Conc 33.8 g/dL (31.6-35.5); Mean Corpuscular Hemoglobin 31.5 pg (28.0-33.3); Mean Platelet Volume 9.1 fL (9.4-12.4); Monocytes % 7.6 %; Platelet Count 351 K/mcL (140-400); Red Blood Count 4.89 M/mcL (4.19-5.50); Red Cell Distribution Width 12.4 % (11.5-14.5); Segmented Neutrophils % 78.9 %; White Blood Count 12.7 K/mcL (4.3-11.1)
[2020-03-23 11:41] LABS: Activated Partial Thrombo Time 32.2 Seconds (26.0-36.0); INR 1.1; Prothrombin Time 12.4 Seconds (9.4-12.1)
[2020-03-23 11:48] LABS: Alanine Aminotransferase 20 Units/L (7-52); Albumin 3.6 g/dL (3.5-5.7); Alkaline Phosphatase 144 Units/L (34-104); Aspartate Amino Transferase 15 Units/L (13-39); BUN/Creatinine Ratio 19 (6-26); Bilirubin,Direct 0.1 mg/dL (0.0-0.2); Bilirubin,Indirect 0.3 mg/dL (0.0-1.0); Bilirubin,Total 0.4 mg/dL (0.3-1.0); Blood Urea Nitrogen 16 mg/dL (8-23); Calcium 9.1 mg/dL (8.6-10.3); Carbon Dioxide 31 mEq/L (23-29); Chloride 101 mEq/L (98-107); Globulin 3.7 g/dL (2.4-3.5); Glucose 113 mg/dL (70-105); Osmolality,Calculated 294 (280-300); Potassium 4.1 mEq/L (3.5-5.1); Sodium 141 mEq/L (136-145); Total Protein 7.3 g/dL (6.4-8.9); Troponin I < 0.03 ng/mL (< 0.04); eGFR For African Americans > 60 (> 60); eGFR For Non-African Americans > 60 (> 60)
[2020-03-23 13:33] LABS: Adenovirus Not Detected (Not Detect); Bordetella Pertussis Not Detected (Not Detect); Chlamydophila pneumoniae Not Detected (Not Detect); Coronavirus 229E Not Detected (Not Detect); Coronavirus HKU1 Not Detected (Not Detect); Coronavirus NL63 Not Detected (Not Detect); Coronavirus OC43 Not Detected (Not Detect); Human Metapneumovirus Not Detected (Not Detect); Human Rhinovirus/Enterovirus Not Detected (Not Detect); Influenza A Subtype 2009 H1 Not Detected (Not Detect); Influenza B Not Detected (Not Detect); Mycoplasma pneumoniae Not Detected (Not Detect); Parainfluenza Virus 1 Not Detected (Not Detect); Parainfluenza Virus 2 Not Detected (Not Detect); Parainfluenza Virus 3 Not Detected (Not Detect); Parainfluenza Virus 4 Not Detected (Not Detect); Respiratory Syncytial Virus Not Detected (Not Detect)
[2020-03-23] MEDS ORDERED: Naloxone 0.4 MG/ML INJ IVP PRN (14:31)
[2020-03-23] MEDS ORDERED: lisinopriL 10 MG TABLET PO PRN (14:38)
[2020-03-23] MEDS ORDERED: Mag Hydrox/Al Hydrox/Simeth 30 ML UDC PO PRN (14:59)
[2020-03-23] MEDS ORDERED: Ondansetron 4 MG/2 ML VIAL IVP PRN (14:59)
[2020-03-23] MEDS ORDERED: MOM Conc 10 ML UD.LIQ PO PRN (14:59)
[2020-03-23] MEDS ORDERED: Albuterol 2.5 MG/3 ML NEBULIZER IH PRN (16:20)
[2020-03-23] MEDS ORDERED: GuaiFENesin/Dextromethorphan TABLET PO PRN (16:24)
[2020-03-23] MEDS ORDERED: cloNIDine HCL 0.1 MG TABLET PO PRN (16:32)
[2020-03-23] MEDS: diazePAM 5 MG TABLET PO SCH ×2 (17:20→22:53)
[2020-03-23] MEDS: Aspirin 81 MG TAB.CHEW PO SCH (22:53)
[2020-03-23] MEDS: Gabapentin 300 MG CAPSULE PO SCH (22:53)
[2020-03-23] MEDS: Acetaminophen 325 MG TABLET PO PRN (23:06)
[2020-03-24] MEDS: 0.9 % Sodium Chloride 1,000 ML IVC SCH (06:47)
[2020-03-24 07:09] LABS: BUN/Creatinine Ratio 24 (6-26); Blood Urea Nitrogen 18 mg/dL (8-23); Calcium 8.9 mg/dL (8.6-10.3); Carbon Dioxide 32 mEq/L (23-29); Chloride 107 mEq/L (98-107); Glucose 108 mg/dL (70-105); Osmolality,Calculated 304 (280-300); Potassium 4.7 mEq/L (3.5-5.1); Sodium 146 mEq/L (136-145); eGFR For African Americans > 60 (> 60); eGFR For Non-African Americans > 60 (> 60)
[2020-03-24 07:17] LABS: Basophils % 0.1 %; Hematocrit 44.1 % (37.5-50.1); Hemoglobin 14.5 g/dL (12.9-16.9); Immature Granulocytes % 0.4 % (0-4); Lymphocytes # 1.6 K/mcL (0.6-4.6); Lymphocytes % 11.3 %; Mean Corpuscular HGB Conc 32.9 g/dL (31.6-35.5); Mean Corpuscular Hemoglobin 31.5 pg (28.0-33.3); Mean Corpuscular Volume 95.7 fL (83.0-100.0); Mean Platelet Volume 9.6 fL (9.4-12.4); Monocytes # 1.1 K/mcL (0.0-1.3); Monocytes % 7.9 %; Neutrophils # 11.5 K/mcL (1.6-8.9); Platelet Count 397 K/mcL (140-400); Red Blood Count 4.61 M/mcL (4.19-5.50); Red Cell Distribution Width 12.7 % (11.5-14.5); Segmented Neutrophils % 80.3 %; White Blood Count 14.3 K/mcL (4.3-11.1)
[2020-03-24] MEDS: diazePAM 5 MG TABLET PO SCH ×3 (08:16→21:00)
[2020-03-24] MEDS: Gabapentin 300 MG CAPSULE PO SCH ×2 (08:16→21:01)
[2020-03-24] MEDS: MethylPREDNISolone 40 MG/ML VIAL IVP SCH ×3 (08:17→23:34)
[2020-03-24] MEDS ORDERED: lisinopriL 10 MG TABLET PO SCH (09:00)
[2020-03-24] MEDS ORDERED: CARIPRAZINE 3 MG PO SCH (09:00)
[2020-03-24] MEDS ORDERED: QUEtiapine Fumarate 25 MG TABLET PO SCH (09:00)
[2020-03-24] MEDS ORDERED: CIALIS 5 MG PO SCH (09:00)
[2020-03-24] MEDS: CARIPRAZINE 3 MG PO SCH (13:56)
[2020-03-24] MEDS: Azithromycin 500 MG in 0.9 % Sodium Chloride 250 ML IVPB SCH (16:33)
[2020-03-24 17:15] LABS: Bilirubin,Urine Negative (Negative); Blood,Urine Small (Negative); Clarity,Urine Clear (Clear); Color,Urine Yellow (Yellow); Glucose,Urine (UA) Normal (Normal); Ketones,Urine Negative (Negative); Leukocyte Esterase,Urine Negative (Negative); Nitrite,Urine Negative (Negative); Protein,Urine Negative (Neg-Trace); Urobilinogen,Urine Normal (Normal)
[2020-03-24 18:01] LABS: Bacteria,Urine Few per hpf (None-Few); Mucus,Urine Few per lpf (None-Few); WBC,Urine 0-3 per hpf (0-3)
[2020-03-24] MEDS: Aspirin 81 MG TAB.CHEW PO SCH (21:05)
[2020-03-25] MEDS ORDERED: D5% in Water 1,000 ML IVC PRN (04:38)
[2020-03-25] MEDS ORDERED: *HR* Dextrose 50 % in Water (Vial) 50 ML VIAL IVP PRN (04:38)
[2020-03-25] MEDS ORDERED: Dextrose Gel 15 GM/37.5 ML TUBE PO PRN ×2 (04:38)
[2020-03-25] MEDS ORDERED: cloNIDine HCL 0.1 MG TABLET GTUBE PRN (08:27)
[2020-03-25] MEDS ORDERED: Mag Hydrox/Al Hydrox/Simeth 30 ML UDC GTUBE PRN (08:33)
[2020-03-25] MEDS ORDERED: MOM Conc 10 ML UD.LIQ GTUBE PRN (08:34)
[2020-03-25 08:40] LABS: Basophils % 0.1 %; Hematocrit 45.2 % (37.5-50.1); Hemoglobin 14.7 g/dL (12.9-16.9); Immature Granulocytes % 0.4 % (0-4); Lymphocytes # 1.5 K/mcL (0.6-4.6); Lymphocytes % 10.5 %; Mean Corpuscular HGB Conc 32.5 g/dL (31.6-35.5); Mean Corpuscular Hemoglobin 31.5 pg (28.0-33.3); Mean Corpuscular Volume 96.8 fL (83.0-100.0); Mean Platelet Volume 9.5 fL (9.4-12.4); Monocytes # 0.5 K/mcL (0.0-1.3); Monocytes % 3.6 %; Platelet Count 388 K/mcL (140-400); Red Blood Count 4.67 M/mcL (4.19-5.50); Red Cell Distribution Width 12.4 % (11.5-14.5); Segmented Neutrophils % 85.4 %
[2020-03-25 08:48] LABS: BUN/Creatinine Ratio 27 (6-26); Blood Urea Nitrogen 20 mg/dL (8-23); Calcium 9.1 mg/dL (8.6-10.3); Carbon Dioxide 32 mEq/L (23-29); Chloride 102 mEq/L (98-107); Glucose 116 mg/dL (70-105); Osmolality,Calculated 298 (280-300); Potassium 4.2 mEq/L (3.5-5.1); Sodium 142 mEq/L (136-145); eGFR For African Americans > 60 (> 60); eGFR For Non-African Americans > 60 (> 60)
[2020-03-25] MEDS: Gabapentin 300 MG CAPSULE GTUBE SCH ×2 (08:58→21:44)
[2020-03-25] MEDS: lisinopriL 10 MG TABLET GTUBE SCH (08:59)
[2020-03-25] MEDS: diazePAM 5 MG TABLET PO SCH ×3 (08:59→21:44)
[2020-03-25] MEDS: QUEtiapine Fumarate 25 MG TABLET GTUBE SCH (09:00)
[2020-03-25] MEDS: CARIPRAZINE 3 MG PO SCH (09:00)
[2020-03-25] MEDS: MethylPREDNISolone 40 MG/ML VIAL IVP SCH ×2 (09:00→16:46)
[2020-03-25] MEDS: cefTRIAXone 1,000 MG in 0.9 % Sodium Chloride Mini Bag 100 ML IVPB SCH (09:01)
[2020-03-25] MEDS: Azithromycin 500 MG in 0.9 % Sodium Chloride 250 ML IVPB SCH (16:47)
[2020-03-25] MEDS: Aspirin 81 MG TAB.CHEW GTUBE SCH (21:45)
[2020-03-26] MEDS: MethylPREDNISolone 40 MG/ML VIAL IVP SCH ×4 (00:50→23:49)
[2020-03-26] MEDS: Acetaminophen 325 MG TABLET PO PRN ×2 (05:37→11:17)
[2020-03-26 06:30] LABS: Basophils % 0.1 %; Hematocrit 45.1 % (37.5-50.1); Hemoglobin 15.1 g/dL (12.9-16.9); Immature Granulocytes % 0.4 % (0-4); Lymphocytes # 1.2 K/mcL (0.6-4.6); Lymphocytes % 8.6 %; Mean Corpuscular HGB Conc 33.5 g/dL (31.6-35.5); Mean Corpuscular Hemoglobin 31.5 pg (28.0-33.3); Mean Corpuscular Volume 94.2 fL (83.0-100.0); Mean Platelet Volume 9.7 fL (9.4-12.4); Monocytes # 0.4 K/mcL (0.0-1.3); Monocytes % 2.6 %; Neutrophils # 12.5 K/mcL (1.6-8.9); Platelet Count 401 K/mcL (140-400); Red Blood Count 4.79 M/mcL (4.19-5.50); Red Cell Distribution Width 12.2 % (11.5-14.5); Segmented Neutrophils % 88.3 %; White Blood Count 14.2 K/mcL (4.3-11.1)
[2020-03-26 06:50] LABS: BUN/Creatinine Ratio 32 (6-26); Blood Urea Nitrogen 23 mg/dL (8-23); Calcium 9.1 mg/dL (8.6-10.3); Carbon Dioxide 32 mEq/L (23-29); Chloride 102 mEq/L (98-107); Glucose 122 mg/dL (70-105); Osmolality,Calculated 299 (280-300); Potassium 4.3 mEq/L (3.5-5.1); Sodium 142 mEq/L (136-145); eGFR For African Americans > 60 (> 60); eGFR For Non-African Americans > 60 (> 60)
[2020-03-26] MEDS: cefTRIAXone 1,000 MG in 0.9 % Sodium Chloride Mini Bag 100 ML IVPB SCH (08:11)
[2020-03-26] MEDS: lisinopriL 10 MG TABLET GTUBE SCH (08:11)
[2020-03-26] MEDS: QUEtiapine Fumarate 25 MG TABLET GTUBE SCH (08:12)
[2020-03-26] MEDS: diazePAM 5 MG TABLET PO SCH ×3 (08:12→22:06)
[2020-03-26] MEDS: Gabapentin 300 MG CAPSULE GTUBE SCH ×2 (08:12→22:06)
[2020-03-26] MEDS: CARIPRAZINE 3 MG PO SCH (08:13)
[2020-03-26] MEDS: Azithromycin 500 MG in 0.9 % Sodium Chloride 250 ML IVPB SCH (17:13)
[2020-03-26] MEDS: Aspirin 81 MG TAB.CHEW GTUBE SCH (22:06)
[2020-03-27] MEDS: QUEtiapine Fumarate 25 MG TABLET GTUBE SCH (09:17)
[2020-03-27] MEDS: diazePAM 5 MG TABLET PO SCH (09:17)
[2020-03-27] MEDS: MethylPREDNISolone 40 MG/ML VIAL IVP SCH (09:17)
[2020-03-27] MEDS: Gabapentin 300 MG CAPSULE GTUBE SCH (09:17)
[2020-03-27] MEDS: lisinopriL 10 MG TABLET GTUBE SCH (09:17)
[2020-03-27] MEDS: cefTRIAXone 1,000 MG in 0.9 % Sodium Chloride Mini Bag 100 ML IVPB SCH (09:18)
[2020-03-27 11:12] VITALS: BP 136/73
[2020-03-27] MEDS: CARIPRAZINE 3 MG PO SCH (12:11)
== END 2020-03-27 12:39 | disposition other institution (70) | DRG 871 ==
LOC: SUPCPDRO → INPPIK 10:58 → EMEROOPIK 10:58 → INPPIK 14:43
PROVIDERS: ADMIT Family Medicine; ATTEND Family Medicine

== ENCOUNTER 2020-03-27 13:28 | Inpatient (IN) ==
[~2020-03-27 13:28] MED LIST: Albuterol 2.5 MG/3 ML NEBULIZER IH PRN; lisinopriL 10 MG TABLET PO PRN
[2020-03-27] MEDS: diazePAM 5 MG TABLET PO SCH ×2 (16:00→21:17)
[2020-03-27] MEDS ORDERED: Aspirin 81 MG TAB.CHEW PO SCH (21:00)
[2020-03-27] MEDS: Gabapentin 300 MG CAPSULE PO SCH (21:18)
[2020-03-28 06:23] LABS: Basophils # 0.1 K/mcL (0.0-0.2); Basophils % 0.7 %; Eosinophils % 0.3 %; Hematocrit 50.2 % (37.5-50.1); Hemoglobin 16.9 g/dL (12.9-16.9); Immature Granulocytes % 2.1 % (0-4); Lymphocytes # 3.1 K/mcL (0.6-4.6); Lymphocytes % 30.5 %; Mean Corpuscular HGB Conc 33.7 g/dL (31.6-35.5); Mean Corpuscular Hemoglobin 31.3 pg (28.0-33.3); Mean Platelet Volume 9.2 fL (9.4-12.4); Monocytes # 0.9 K/mcL (0.0-1.3); Neutrophils # 5.8 K/mcL (1.6-8.9); Platelet Count 393 K/mcL (140-400); Red Cell Distribution Width 12.1 % (11.5-14.5); Segmented Neutrophils % 57.4 %; White Blood Count 10.1 K/mcL (4.3-11.1)
[2020-03-28 06:42] LABS: BUN/Creatinine Ratio 33 (6-26); Blood Urea Nitrogen 26 mg/dL (8-23); Carbon Dioxide 37 mEq/L (23-29); Chloride 99 mEq/L (98-107); Glucose 81 mg/dL (70-105); Osmolality,Calculated 300 (280-300); Potassium 4.1 mEq/L (3.5-5.1); Sodium 143 mEq/L (136-145); eGFR For African Americans > 60 (> 60); eGFR For Non-African Americans > 60 (> 60)
[2020-03-28] MEDS: (Omega-3/Dha/Epa/Fish Oil [Fish Oil 1,000 Mg Softgel] PO SCH (08:36)
[2020-03-28] MEDS: diazePAM 5 MG TABLET PO SCH ×3 (08:36→21:14)
[2020-03-28] MEDS: Gabapentin 300 MG CAPSULE PO SCH (08:36)
[2020-03-28] MEDS: Azithromycin 250 MG TABLET PO SCH (08:36)
[2020-03-28] MEDS: Vitamin E 200 UNIT (90MG) CAPSULE PO SCH (08:37)
[2020-03-28] MEDS ORDERED: lisinopriL 10 MG TABLET GTUBE PRN (08:39)
[2020-03-28] MEDS ORDERED: QUEtiapine Fumarate 25 MG TABLET PO SCH (09:00)
[2020-03-28] MEDS ORDERED: Multivit/Ca/Min/Fe/FA 1 TAB TABLET PO SCH (09:00)
[2020-03-28] MEDS: Gabapentin 300 MG CAPSULE GTUBE SCH (21:15)
[2020-03-28] MEDS: Aspirin 81 MG TAB.CHEW GTUBE SCH (21:15)
[2020-03-29] MEDS: Gabapentin 300 MG CAPSULE GTUBE SCH ×2 (09:13→21:04)
[2020-03-29] MEDS: Vitamin E 200 UNIT (90MG) CAPSULE PO SCH (09:14)
[2020-03-29] MEDS: Azithromycin 250 MG TABLET PO SCH (09:14)
[2020-03-29] MEDS: diazePAM 5 MG TABLET PO SCH ×3 (09:14→21:05)
[2020-03-29] MEDS: (Omega-3/Dha/Epa/Fish Oil [Fish Oil 1,000 Mg Softgel] PO SCH (09:14)
[2020-03-29] MEDS: Multivit/Ca/Min/Fe/FA 1 TAB TABLET GTUBE SCH (09:14)
[2020-03-29] MEDS: Erythromycin OPTH Oint LEFT EYE SCH ×3 (09:14→21:04)
[2020-03-29] MEDS: QUEtiapine Fumarate 25 MG TABLET GTUBE SCH (09:14)
[2020-03-29] MEDS: Aspirin 81 MG TAB.CHEW GTUBE SCH (21:05)
[2020-03-30] MEDS: diazePAM 5 MG TABLET PO SCH ×3 (08:05→19:36)
[2020-03-30] MEDS: lisinopriL 10 MG TABLET GTUBE SCH (08:05)
[2020-03-30] MEDS: Gabapentin 300 MG CAPSULE GTUBE SCH ×2 (08:06→19:36)
[2020-03-30] MEDS: Vitamin E 200 UNIT (90MG) CAPSULE PO SCH (08:06)
[2020-03-30] MEDS: Azithromycin 250 MG TABLET PO SCH (08:06)
[2020-03-30] MEDS: Multivit/Ca/Min/Fe/FA 1 TAB TABLET GTUBE SCH (08:06)
[2020-03-30] MEDS: QUEtiapine Fumarate 25 MG TABLET GTUBE SCH (08:06)
[2020-03-30] MEDS: Erythromycin OPTH Oint LEFT EYE SCH ×3 (08:06→19:36)
[2020-03-30] MEDS: (Omega-3/Dha/Epa/Fish Oil [Fish Oil 1,000 Mg Softgel] PO SCH (08:07)
[2020-03-30] MEDS: Aspirin 81 MG TAB.CHEW GTUBE SCH (19:36)
[2020-03-31 07:10] LABS: BUN/Creatinine Ratio 40 (6-26); Blood Urea Nitrogen 27 mg/dL (8-23); Calcium 8.8 mg/dL (8.6-10.3); Carbon Dioxide 35 mEq/L (23-29); Chloride 98 mEq/L (98-107); Glucose 94 mg/dL (70-105); Osmolality,Calculated 295 (280-300); Potassium 4.2 mEq/L (3.5-5.1); Sodium 140 mEq/L (136-145); eGFR For African Americans > 60 (> 60); eGFR For Non-African Americans > 60 (> 60)
[2020-03-31] MEDS: QUEtiapine Fumarate 25 MG TABLET GTUBE SCH (07:30)
[2020-03-31] MEDS: Vitamin E 200 UNIT (90MG) CAPSULE PO SCH (07:30)
[2020-03-31] MEDS: Gabapentin 300 MG CAPSULE GTUBE SCH ×2 (07:31→19:35)
[2020-03-31] MEDS: Multivit/Ca/Min/Fe/FA 1 TAB TABLET GTUBE SCH (07:31)
[2020-03-31] MEDS: (Omega-3/Dha/Epa/Fish Oil [Fish Oil 1,000 Mg Softgel] PO SCH (07:31)
[2020-03-31] MEDS: lisinopriL 10 MG TABLET GTUBE SCH (07:31)
[2020-03-31] MEDS: diazePAM 5 MG TABLET PO SCH ×2 (07:31→19:34)
[2020-03-31] MEDS: Erythromycin OPTH Oint LEFT EYE SCH ×3 (07:31→19:35)
[2020-03-31] MEDS: Aspirin 81 MG TAB.CHEW GTUBE SCH (19:34)
[2020-04-01] MEDS: diazePAM 5 MG TABLET PO SCH (09:35)
[2020-04-01] MEDS: Vitamin E 200 UNIT (90MG) CAPSULE PO SCH (09:35)
[2020-04-01] MEDS: Gabapentin 300 MG CAPSULE GTUBE SCH ×2 (09:35→19:48)
[2020-04-01] MEDS: QUEtiapine Fumarate 25 MG TABLET GTUBE SCH (09:35)
[2020-04-01] MEDS: lisinopriL 10 MG TABLET GTUBE SCH (09:35)
[2020-04-01] MEDS: Multivit/Ca/Min/Fe/FA 1 TAB TABLET GTUBE SCH (09:35)
[2020-04-01] MEDS: Erythromycin OPTH Oint LEFT EYE SCH ×3 (09:35→19:49)
[2020-04-01] MEDS: (Omega-3/Dha/Epa/Fish Oil [Fish Oil 1,000 Mg Softgel] PO SCH (09:57)
[2020-04-01] MEDS: Aspirin 81 MG TAB.CHEW GTUBE SCH (19:48)
[2020-04-01] MEDS: diazePAM 2 MG TABLET PO SCH (19:48)
[2020-04-02] MEDS: Cariprazine Hcl [Vraylar] 3 MG GTUBE SCH (09:13)
[2020-04-02] MEDS: Multivitamin Liquid 15 ML UDC GTUBE SCH (09:14)
[2020-04-02] MEDS: lisinopriL 10 MG TABLET GTUBE SCH (09:14)
[2020-04-02] MEDS: Gabapentin 300 MG CAPSULE GTUBE SCH ×2 (09:14→22:23)
[2020-04-02] MEDS: QUEtiapine Fumarate 25 MG TABLET GTUBE SCH (09:14)
[2020-04-02] MEDS: diazePAM 2 MG TABLET PO SCH ×2 (09:15→22:28)
[2020-04-02] MEDS: Vitamin E 200 UNIT (90MG) CAPSULE PO SCH (09:15)
[2020-04-02] MEDS: (Omega-3/Dha/Epa/Fish Oil [Fish Oil 1,000 Mg Softgel] PO SCH (09:15)
[2020-04-02] MEDS: Erythromycin OPTH Oint LEFT EYE SCH ×3 (09:18→22:28)
[2020-04-02] MEDS: Bisacodyl 10 MG RECTAL SUPPOSITORY RC PRN (11:22)
[2020-04-02] MEDS: Docusate Oral Soln 100 MG/10 ML UDC GTUBE SCH ×2 (12:18→22:22)
[2020-04-02] MEDS: Aspirin 81 MG TAB.CHEW GTUBE SCH (22:23)
[2020-04-03] MEDS: (Omega-3/Dha/Epa/Fish Oil [Fish Oil 1,000 Mg Softgel] PO SCH (10:18)
[2020-04-03] MEDS: Docusate Oral Soln 100 MG/10 ML UDC GTUBE SCH ×2 (10:31→22:06)
[2020-04-03] MEDS: Erythromycin OPTH Oint LEFT EYE SCH ×3 (10:38→22:06)
[2020-04-03] MEDS: Vitamin E 200 UNIT (90MG) CAPSULE PO SCH (10:38)
[2020-04-03] MEDS: lisinopriL 10 MG TABLET GTUBE SCH (10:38)
[2020-04-03] MEDS: Cariprazine Hcl [Vraylar] 3 MG GTUBE SCH (10:38)
[2020-04-03] MEDS: diazePAM 2 MG TABLET PO SCH ×2 (10:38→22:05)
[2020-04-03] MEDS: Gabapentin 300 MG CAPSULE GTUBE SCH ×2 (10:39→22:06)
[2020-04-03] MEDS: Multivitamin Liquid 15 ML UDC GTUBE SCH (10:39)
[2020-04-03] MEDS: Aspirin 81 MG TAB.CHEW GTUBE SCH (22:05)
[2020-04-03] MEDS: QUEtiapine Fumarate 25 MG TABLET GTUBE SCH (22:05)
[2020-04-04] MEDS: Vitamin E 200 UNIT (90MG) CAPSULE PO SCH (09:10)
[2020-04-04] MEDS: Docusate Oral Soln 100 MG/10 ML UDC GTUBE SCH ×2 (09:10→20:30)
[2020-04-04] MEDS: Gabapentin 300 MG CAPSULE GTUBE SCH ×2 (09:10→20:31)
[2020-04-04] MEDS: lisinopriL 10 MG TABLET GTUBE SCH (09:10)
[2020-04-04] MEDS: Multivitamin Liquid 15 ML UDC GTUBE SCH (09:10)
[2020-04-04] MEDS: (Omega-3/Dha/Epa/Fish Oil [Fish Oil 1,000 Mg Softgel] PO SCH (09:11)
[2020-04-04] MEDS: Cariprazine Hcl [Vraylar] 3 MG GTUBE SCH (09:11)
[2020-04-04] MEDS: diazePAM 2 MG TABLET PO SCH ×2 (09:11→20:31)
[2020-04-04] MEDS: Erythromycin OPTH Oint LEFT EYE SCH ×3 (09:11→20:31)
[2020-04-04] MEDS: Aspirin 81 MG TAB.CHEW GTUBE SCH (20:31)
[2020-04-04] MEDS: QUEtiapine Fumarate 25 MG TABLET GTUBE SCH (20:31)
[2020-04-05] MEDS: Gabapentin 300 MG CAPSULE GTUBE SCH ×2 (08:57→20:44)
[2020-04-05] MEDS: Vitamin E 200 UNIT (90MG) CAPSULE PO SCH (08:57)
[2020-04-05] MEDS: lisinopriL 10 MG TABLET GTUBE SCH (08:57)
[2020-04-05] MEDS: Multivitamin Liquid 15 ML UDC GTUBE SCH (08:58)
[2020-04-05] MEDS: (Omega-3/Dha/Epa/Fish Oil [Fish Oil 1,000 Mg Softgel] PO SCH (08:58)
[2020-04-05] MEDS: diazePAM 2 MG TABLET PO SCH ×2 (08:58→20:44)
[2020-04-05] MEDS: Erythromycin OPTH Oint LEFT EYE SCH ×3 (08:58→20:43)
[2020-04-05] MEDS: Cariprazine Hcl [Vraylar] 3 MG GTUBE SCH (08:58)
[2020-04-05] MEDS: Docusate Oral Soln 100 MG/10 ML UDC GTUBE SCH ×2 (08:58→20:43)
[2020-04-05] MEDS: Aspirin 81 MG TAB.CHEW GTUBE SCH (20:44)
[2020-04-05] MEDS: QUEtiapine Fumarate 25 MG TABLET GTUBE SCH (20:44)
[2020-04-06] MEDS: Multivitamin Liquid 15 ML UDC GTUBE SCH (09:02)
[2020-04-06] MEDS: (Omega-3/Dha/Epa/Fish Oil [Fish Oil 1,000 Mg Softgel] PO SCH (09:03)
[2020-04-06] MEDS: Gabapentin 300 MG CAPSULE GTUBE SCH ×2 (09:03→21:25)
[2020-04-06] MEDS: Docusate Oral Soln 100 MG/10 ML UDC GTUBE SCH ×2 (09:03→21:23)
[2020-04-06] MEDS: diazePAM 2 MG TABLET PO SCH ×2 (09:03→21:24)
[2020-04-06] MEDS: Erythromycin OPTH Oint LEFT EYE SCH ×3 (09:03→21:23)
[2020-04-06] MEDS: Vitamin E 200 UNIT (90MG) CAPSULE PO SCH (09:04)
[2020-04-06] MEDS: lisinopriL 10 MG TABLET GTUBE SCH (09:04)
[2020-04-06] MEDS: Cariprazine Hcl [Vraylar] 3 MG GTUBE SCH (09:08)
[2020-04-06] MEDS: Aspirin 81 MG TAB.CHEW GTUBE SCH (21:23)
[2020-04-06] MEDS: QUEtiapine Fumarate 25 MG TABLET GTUBE SCH (21:24)
[2020-04-07] MEDS: diazePAM 2 MG TABLET PO SCH ×2 (09:34→22:35)
[2020-04-07] MEDS: Multivitamin Liquid 15 ML UDC GTUBE SCH (09:34)
[2020-04-07] MEDS: Gabapentin 300 MG CAPSULE GTUBE SCH ×2 (09:34→22:36)
[2020-04-07] MEDS: Erythromycin OPTH Oint LEFT EYE SCH ×3 (09:34→22:35)
[2020-04-07] MEDS: Docusate Oral Soln 100 MG/10 ML UDC GTUBE SCH ×2 (09:34→22:34)
[2020-04-07] MEDS: lisinopriL 10 MG TABLET GTUBE SCH (09:34)
[2020-04-07] MEDS: Vitamin E 200 UNIT (90MG) CAPSULE PO SCH (09:35)
[2020-04-07] MEDS: Cariprazine Hcl [Vraylar] 3 MG GTUBE SCH (09:42)
[2020-04-07] MEDS: (Omega-3/Dha/Epa/Fish Oil [Fish Oil 1,000 Mg Softgel] PO SCH (09:43)
[2020-04-07] MEDS: QUEtiapine Fumarate 25 MG TABLET GTUBE SCH (22:35)
[2020-04-07] MEDS: Aspirin 81 MG TAB.CHEW GTUBE SCH (22:35)
[2020-04-08 06:54] LABS: Basophils % 0.3 %; Eosinophils # 0.3 K/mcL (0.0-0.6); Eosinophils % 3.1 %; Hematocrit 45.2 % (37.5-50.1); Hemoglobin 14.7 g/dL (12.9-16.9); Immature Granulocytes % 0.3 % (0-4); Lymphocytes # 2.1 K/mcL (0.6-4.6); Lymphocytes % 19.5 %; Mean Corpuscular HGB Conc 32.5 g/dL (31.6-35.5); Mean Corpuscular Hemoglobin 30.7 pg (28.0-33.3); Mean Corpuscular Volume 94.4 fL (83.0-100.0); Mean Platelet Volume 9.9 fL (9.4-12.4); Monocytes # 0.8 K/mcL (0.0-1.3); Monocytes % 7.6 %; Neutrophils # 7.5 K/mcL (1.6-8.9); Platelet Count 295 K/mcL (140-400); Red Blood Count 4.79 M/mcL (4.19-5.50); Red Cell Distribution Width 11.9 % (11.5-14.5); Segmented Neutrophils % 69.2 %; White Blood Count 10.9 K/mcL (4.3-11.1)
[2020-04-08 07:08] LABS: BUN/Creatinine Ratio 27 (6-26); Blood Urea Nitrogen 18 mg/dL (8-23); Calcium 8.9 mg/dL (8.6-10.3); Carbon Dioxide 35 mEq/L (23-29); Chloride 100 mEq/L (98-107); Glucose 84 mg/dL (70-105); Osmolality,Calculated 293 (280-300); Potassium 3.8 mEq/L (3.5-5.1); Sodium 141 mEq/L (136-145); eGFR For African Americans > 60 (> 60); eGFR For Non-African Americans > 60 (> 60)
[2020-04-08] MEDS: Multivitamin Liquid 15 ML UDC GTUBE SCH (07:54)
[2020-04-08] MEDS: Docusate Oral Soln 100 MG/10 ML UDC GTUBE SCH ×2 (07:54→21:14)
[2020-04-08] MEDS: Vitamin E 200 UNIT (90MG) CAPSULE PO SCH (07:54)
[2020-04-08] MEDS: diazePAM 2 MG TABLET PO SCH ×2 (07:54→21:14)
[2020-04-08] MEDS: lisinopriL 10 MG TABLET GTUBE SCH (07:54)
[2020-04-08] MEDS: Gabapentin 300 MG CAPSULE GTUBE SCH ×2 (07:54→21:14)
[2020-04-08] MEDS: (Omega-3/Dha/Epa/Fish Oil [Fish Oil 1,000 Mg Softgel] PO SCH (07:55)
[2020-04-08] MEDS: Cariprazine Hcl [Vraylar] 3 MG GTUBE SCH (07:55)
[2020-04-08] MEDS: Erythromycin OPTH Oint LEFT EYE SCH (07:55)
[2020-04-08] MEDS: QUEtiapine Fumarate 25 MG TABLET GTUBE SCH (21:14)
[2020-04-08] MEDS: Aspirin 81 MG TAB.CHEW GTUBE SCH (21:15)
[2020-04-09] MEDS: Multivitamin Liquid 15 ML UDC GTUBE SCH (07:58)
[2020-04-09] MEDS: (Omega-3/Dha/Epa/Fish Oil [Fish Oil 1,000 Mg Softgel] PO SCH (07:59)
[2020-04-09] MEDS: diazePAM 2 MG TABLET PO SCH ×2 (07:59→21:13)
[2020-04-09] MEDS: Docusate Oral Soln 100 MG/10 ML UDC GTUBE SCH ×2 (07:59→21:14)
[2020-04-09] MEDS: Gabapentin 300 MG CAPSULE GTUBE SCH ×2 (07:59→21:13)
[2020-04-09] MEDS: lisinopriL 10 MG TABLET GTUBE SCH (07:59)
[2020-04-09] MEDS: Vitamin E 200 UNIT (90MG) CAPSULE PO SCH (07:59)
[2020-04-09] MEDS: Cariprazine Hcl [Vraylar] 3 MG GTUBE SCH (08:02)
[2020-04-09] MEDS: Aspirin 81 MG TAB.CHEW GTUBE SCH (21:13)
[2020-04-09] MEDS: QUEtiapine Fumarate 25 MG TABLET GTUBE SCH (21:13)
[2020-04-10] MEDS: Multivitamin Liquid 15 ML UDC GTUBE SCH (08:52)
[2020-04-10] MEDS: Vitamin E 200 UNIT (90MG) CAPSULE PO SCH (08:52)
[2020-04-10] MEDS: diazePAM 2 MG TABLET PO SCH ×2 (08:53→20:04)
[2020-04-10] MEDS: Gabapentin 300 MG CAPSULE GTUBE SCH ×2 (08:53→20:04)
[2020-04-10] MEDS: lisinopriL 10 MG TABLET GTUBE SCH (08:53)
[2020-04-10] MEDS: (Omega-3/Dha/Epa/Fish Oil [Fish Oil 1,000 Mg Softgel] PO SCH (08:53)
[2020-04-10] MEDS: Docusate Oral Soln 100 MG/10 ML UDC GTUBE SCH ×2 (08:54→20:04)
[2020-04-10] MEDS: Cariprazine Hcl [Vraylar] 3 MG GTUBE SCH (09:09)
[2020-04-10] MEDS: QUEtiapine Fumarate 25 MG TABLET GTUBE SCH (20:04)
[2020-04-10] MEDS: Aspirin 81 MG TAB.CHEW GTUBE SCH (20:04)
[2020-04-11] MEDS: Gabapentin 300 MG CAPSULE GTUBE SCH ×2 (08:47→21:53)
[2020-04-11] MEDS: diazePAM 2 MG TABLET PO SCH ×2 (08:47→21:54)
[2020-04-11] MEDS: Vitamin E 200 UNIT (90MG) CAPSULE PO SCH (08:47)
[2020-04-11] MEDS: lisinopriL 10 MG TABLET GTUBE SCH (08:47)
[2020-04-11] MEDS: Cariprazine Hcl [Vraylar] 3 MG GTUBE SCH (08:47)
[2020-04-11] MEDS: (Omega-3/Dha/Epa/Fish Oil [Fish Oil 1,000 Mg Softgel] PO SCH (08:48)
[2020-04-11] MEDS: Docusate Oral Soln 100 MG/10 ML UDC GTUBE SCH ×2 (08:48→21:53)
[2020-04-11] MEDS: Multivitamin Liquid 15 ML UDC GTUBE SCH (08:48)
[2020-04-11] MEDS: QUEtiapine Fumarate 25 MG TABLET GTUBE SCH (21:54)
[2020-04-11] MEDS: Aspirin 81 MG TAB.CHEW GTUBE SCH (21:54)
[2020-04-12] MEDS: Vitamin E 200 UNIT (90MG) CAPSULE PO SCH (07:58)
[2020-04-12] MEDS: Multivitamin Liquid 15 ML UDC GTUBE SCH (07:58)
[2020-04-12] MEDS: Gabapentin 300 MG CAPSULE GTUBE SCH ×2 (07:58→20:25)
[2020-04-12] MEDS: Cariprazine Hcl [Vraylar] 3 MG GTUBE SCH (07:59)
[2020-04-12] MEDS: (Omega-3/Dha/Epa/Fish Oil [Fish Oil 1,000 Mg Softgel] PO SCH (07:59)
[2020-04-12] MEDS: diazePAM 2 MG TABLET PO SCH ×2 (07:59→20:25)
[2020-04-12] MEDS: lisinopriL 10 MG TABLET GTUBE SCH (07:59)
[2020-04-12] MEDS: Docusate Oral Soln 100 MG/10 ML UDC GTUBE SCH ×2 (07:59→20:25)
[2020-04-12] MEDS: QUEtiapine Fumarate 25 MG TABLET GTUBE SCH (20:25)
[2020-04-12] MEDS: Aspirin 81 MG TAB.CHEW GTUBE SCH (20:25)
[2020-04-13] MEDS: Cariprazine Hcl [Vraylar] 3 MG GTUBE SCH (08:01)
[2020-04-13] MEDS: diazePAM 2 MG TABLET PO SCH ×2 (08:02→20:40)
[2020-04-13] MEDS: Multivitamin Liquid 15 ML UDC GTUBE SCH (08:02)
[2020-04-13] MEDS: (Omega-3/Dha/Epa/Fish Oil [Fish Oil 1,000 Mg Softgel] PO SCH (08:02)
[2020-04-13] MEDS: lisinopriL 10 MG TABLET GTUBE SCH (08:02)
[2020-04-13] MEDS: Vitamin E 200 UNIT (90MG) CAPSULE PO SCH (08:02)
[2020-04-13] MEDS: Docusate Oral Soln 100 MG/10 ML UDC GTUBE SCH ×2 (08:02→20:40)
[2020-04-13] MEDS: Gabapentin 300 MG CAPSULE GTUBE SCH ×2 (08:02→20:40)
[2020-04-13] MEDS: QUEtiapine Fumarate 25 MG TABLET GTUBE SCH (20:41)
[2020-04-13] MEDS: Aspirin 81 MG TAB.CHEW GTUBE SCH (20:41)
[2020-04-14 07:10] LABS: Basophils % 0.4 %; Eosinophils # 0.4 K/mcL (0.0-0.6); Eosinophils % 5.4 %; Hematocrit 44.4 % (37.5-50.1); Hemoglobin 14.7 g/dL (12.9-16.9); Immature Granulocytes % 0.1 % (0-4); Lymphocytes # 2.3 K/mcL (0.6-4.6); Lymphocytes % 27.7 %; Mean Corpuscular HGB Conc 33.1 g/dL (31.6-35.5); Mean Corpuscular Hemoglobin 31.4 pg (28.0-33.3); Mean Corpuscular Volume 94.9 fL (83.0-100.0); Mean Platelet Volume 9.7 fL (9.4-12.4); Monocytes # 0.6 K/mcL (0.0-1.3); Monocytes % 6.8 %; Neutrophils # 4.9 K/mcL (1.6-8.9); Platelet Count 249 K/mcL (140-400); Red Blood Count 4.68 M/mcL (4.19-5.50); Segmented Neutrophils % 59.6 %; White Blood Count 8.2 K/mcL (4.3-11.1)
[2020-04-14 07:16] LABS: BUN/Creatinine Ratio 25 (6-26); Blood Urea Nitrogen 18 mg/dL (8-23); Calcium 9.2 mg/dL (8.6-10.3); Carbon Dioxide 35 mEq/L (23-29); Chloride 99 mEq/L (98-107); Glucose 99 mg/dL (70-105); Osmolality,Calculated 294 (280-300); Potassium 3.9 mEq/L (3.5-5.1); Sodium 141 mEq/L (136-145); eGFR For African Americans > 60 (> 60); eGFR For Non-African Americans > 60 (> 60)
[2020-04-14] MEDS: Gabapentin 300 MG CAPSULE GTUBE SCH ×2 (08:02→19:48)
[2020-04-14] MEDS: lisinopriL 10 MG TABLET GTUBE SCH (08:02)
[2020-04-14] MEDS: diazePAM 2 MG TABLET PO SCH ×2 (08:02→19:49)
[2020-04-14] MEDS: Docusate Oral Soln 100 MG/10 ML UDC GTUBE SCH ×2 (08:03→19:48)
[2020-04-14] MEDS: Vitamin E 200 UNIT (90MG) CAPSULE PO SCH (08:03)
[2020-04-14] MEDS: Cariprazine Hcl [Vraylar] 3 MG GTUBE SCH (08:03)
[2020-04-14] MEDS: (Omega-3/Dha/Epa/Fish Oil [Fish Oil 1,000 Mg Softgel] PO SCH (08:04)
[2020-04-14] MEDS: Multivitamin Liquid 15 ML UDC GTUBE SCH (08:10)
[2020-04-14] MEDS: GuaiFENesin Liq 200 MG/10 ML UDC GTUBE PRN ×2 (16:13→22:52)
[2020-04-14] MEDS: Aspirin 81 MG TAB.CHEW GTUBE SCH (19:48)
[2020-04-14] MEDS: QUEtiapine Fumarate 25 MG TABLET GTUBE SCH (19:48)
[2020-04-15] MEDS: diazePAM 2 MG TABLET PO SCH ×2 (10:22→20:48)
[2020-04-15] MEDS: Vitamin E 200 UNIT (90MG) CAPSULE PO SCH (10:22)
[2020-04-15] MEDS: lisinopriL 10 MG TABLET GTUBE SCH (10:22)
[2020-04-15] MEDS: Gabapentin 300 MG CAPSULE GTUBE SCH ×2 (10:23→20:47)
[2020-04-15] MEDS: Cariprazine Hcl [Vraylar] 3 MG GTUBE SCH (10:23)
[2020-04-15] MEDS: Multivitamin Liquid 15 ML UDC GTUBE SCH (10:23)
[2020-04-15] MEDS: (Omega-3/Dha/Epa/Fish Oil [Fish Oil 1,000 Mg Softgel] PO SCH (10:23)
[2020-04-15] MEDS: Docusate Oral Soln 100 MG/10 ML UDC GTUBE SCH ×2 (10:27→20:48)
[2020-04-15] MEDS: GuaiFENesin Liq 200 MG/10 ML UDC GTUBE PRN (20:48)
[2020-04-15] MEDS: Aspirin 81 MG TAB.CHEW GTUBE SCH (20:48)
[2020-04-15] MEDS: QUEtiapine Fumarate 25 MG TABLET GTUBE SCH (20:48)
[2020-04-16] MEDS: Multivitamin Liquid 15 ML UDC GTUBE SCH (08:47)
[2020-04-16] MEDS: diazePAM 2 MG TABLET PO SCH ×2 (08:47→19:43)
[2020-04-16] MEDS: Gabapentin 300 MG CAPSULE GTUBE SCH ×2 (08:47→19:43)
[2020-04-16] MEDS: Docusate Oral Soln 100 MG/10 ML UDC GTUBE SCH ×2 (08:47→19:44)
[2020-04-16] MEDS: Vitamin E 200 UNIT (90MG) CAPSULE PO SCH (08:47)
[2020-04-16] MEDS: lisinopriL 10 MG TABLET GTUBE SCH (08:47)
[2020-04-16] MEDS: Cariprazine Hcl [Vraylar] 3 MG GTUBE SCH (08:48)
[2020-04-16] MEDS: (Omega-3/Dha/Epa/Fish Oil [Fish Oil 1,000 Mg Softgel] PO SCH (08:48)
[2020-04-16] MEDS: GuaiFENesin Liq 200 MG/10 ML UDC GTUBE PRN (09:05)
[2020-04-16] MEDS: Aspirin 81 MG TAB.CHEW GTUBE SCH (19:44)
[2020-04-16] MEDS: QUEtiapine Fumarate 25 MG TABLET GTUBE SCH (19:44)
[2020-04-17] MEDS: lisinopriL 10 MG TABLET GTUBE SCH (09:04)
[2020-04-17] MEDS: Gabapentin 300 MG CAPSULE GTUBE SCH ×2 (09:04→20:09)
[2020-04-17] MEDS: diazePAM 2 MG TABLET PO SCH ×2 (09:04→20:05)
[2020-04-17] MEDS: Cariprazine Hcl [Vraylar] 3 MG GTUBE SCH (09:04)
[2020-04-17] MEDS: Vitamin E 200 UNIT (90MG) CAPSULE PO SCH (09:04)
[2020-04-17] MEDS: Multivitamin Liquid 15 ML UDC GTUBE SCH (09:05)
[2020-04-17] MEDS: Docusate Oral Soln 100 MG/10 ML UDC GTUBE SCH ×2 (09:05→19:57)
[2020-04-17] MEDS: (Omega-3/Dha/Epa/Fish Oil [Fish Oil 1,000 Mg Softgel] PO SCH (09:46)
[2020-04-17] MEDS: GuaiFENesin Liq 200 MG/10 ML UDC GTUBE PRN ×2 (16:55→23:56)
[2020-04-17] MEDS: Aspirin 81 MG TAB.CHEW GTUBE SCH (19:56)
[2020-04-17] MEDS: QUEtiapine Fumarate 25 MG TABLET GTUBE SCH (19:57)
[2020-04-18] MEDS: Vitamin E 200 UNIT (90MG) CAPSULE PO SCH (08:08)
[2020-04-18] MEDS: Docusate Oral Soln 100 MG/10 ML UDC GTUBE SCH ×2 (08:08→22:12)
[2020-04-18] MEDS: Multivitamin Liquid 15 ML UDC GTUBE SCH (08:08)
[2020-04-18] MEDS: Cariprazine Hcl [Vraylar] 3 MG GTUBE SCH (08:09)
[2020-04-18] MEDS: lisinopriL 10 MG TABLET GTUBE SCH (08:09)
[2020-04-18] MEDS: Gabapentin 300 MG CAPSULE GTUBE SCH ×2 (08:17→22:12)
[2020-04-18] MEDS: diazePAM 2 MG TABLET PO SCH ×2 (08:17→22:11)
[2020-04-18] MEDS: (Omega-3/Dha/Epa/Fish Oil [Fish Oil 1,000 Mg Softgel] PO SCH (08:17)
[2020-04-18 13:18] LABS: Hematocrit 45.4 % (37.5-50.1); Hemoglobin 15.3 g/dL (12.9-16.9); Mean Corpuscular HGB Conc 33.7 g/dL (31.6-35.5); Mean Corpuscular Hemoglobin 31.7 pg (28.0-33.3); Mean Platelet Volume 9.5 fL (9.4-12.4); Platelet Count 284 K/mcL (140-400); Red Blood Count 4.83 M/mcL (4.19-5.50); Red Cell Distribution Width 11.8 % (11.5-14.5); White Blood Count 8.2 K/mcL (4.3-11.1)
[2020-04-18 13:34] LABS: Alanine Aminotransferase 31 Units/L (7-52); Albumin 3.6 g/dL (3.5-5.7); Albumin/Globulin Ratio 1.2 (1.1-2.2); Alkaline Phosphatase 139 Units/L (34-104); Aspartate Amino Transferase 19 Units/L (13-39); BUN/Creatinine Ratio 21 (6-26); Bilirubin,Total 0.4 mg/dL (0.3-1.0); Blood Urea Nitrogen 16 mg/dL (8-23); Calcium 9.1 mg/dL (8.6-10.3); Carbon Dioxide 32 mEq/L (23-29); Chloride 101 mEq/L (98-107); Glucose 118 mg/dL (70-105); Osmolality,Calculated 294 (280-300); Potassium 4.1 mEq/L (3.5-5.1); Sodium 141 mEq/L (136-145); Total Protein 6.6 g/dL (6.4-8.9); eGFR For African Americans > 60 (> 60); eGFR For Non-African Americans > 60 (> 60)
[2020-04-18] MEDS ORDERED: Ondansetron 4 MG/2 ML VIAL IVP PRN (21:27)
[2020-04-18] MEDS ORDERED: Ondansetron Oral Soln 2 MG/2.5 ML ORAL.SYG GTUBE PRN (21:30)
[2020-04-18] MEDS: QUEtiapine Fumarate 25 MG TABLET GTUBE SCH (22:11)
[2020-04-18] MEDS: Aspirin 81 MG TAB.CHEW GTUBE SCH (22:13)
[2020-04-19] MEDS ORDERED: 0.9 % Sodium Chloride 1,000 ML ONE ×2 (07:29→11:29)
[2020-04-19] MEDS: Cariprazine Hcl [Vraylar] 3 MG GTUBE SCH (09:32)
[2020-04-19] MEDS: (Omega-3/Dha/Epa/Fish Oil [Fish Oil 1,000 Mg Softgel] PO SCH (09:32)
[2020-04-19] MEDS: Gabapentin 300 MG CAPSULE GTUBE SCH ×2 (09:32→21:01)
[2020-04-19] MEDS: Multivitamin Liquid 15 ML UDC GTUBE SCH (09:32)
[2020-04-19] MEDS: diazePAM 2 MG TABLET PO SCH ×2 (09:32→21:01)
[2020-04-19] MEDS: Docusate Oral Soln 100 MG/10 ML UDC GTUBE SCH ×2 (09:32→21:01)
[2020-04-19] MEDS: lisinopriL 10 MG TABLET GTUBE SCH (09:33)
[2020-04-19] MEDS: Vitamin E 200 UNIT (90MG) CAPSULE PO SCH (09:33)
[2020-04-19 09:45] LABS: Bilirubin,Urine Negative (Negative); Blood,Urine Large (Negative); Clarity,Urine Cloudy (Clear); Color,Urine Dark Yellow (Yellow); Glucose,Urine (UA) Normal (Normal); Ketones,Urine Negative (Negative); Leukocyte Esterase,Urine Negative (Negative); Nitrite,Urine Negative (Negative); Protein,Urine 100 mg/dL (Neg-Trace); Specific Gravity,Urine 1.015 (1.010-1.025); Urobilinogen,Urine Normal (Normal)
[2020-04-19 10:15] LABS: Amorphous Sediment,Urine Moderate per hpf (None-Few); Bacteria,Urine Moderate per hpf (None-Few); RBC,Urine 50-100 per hpf (0-3); Squamous Epithelial Cell,Urine Few per hpf (None-Few); WBC,Urine 0-3 per hpf (0-3)
[2020-04-19] MEDS ORDERED: D5% in 0.45% NACL 1,000 ML IVC SCH (17:30)
[2020-04-19] MEDS ORDERED: D5% in 0.45% NACL 1,000 ML IVC PRN (17:38)
[2020-04-19] MEDS: 0.9 % Sodium Chloride 1,000 ML IVC SCH (17:39)
[2020-04-19] MEDS: D5% in 0.45% NACL 1,000 ML IVC PRN (18:09)
[2020-04-19] MEDS: QUEtiapine Fumarate 25 MG TABLET GTUBE SCH (21:01)
[2020-04-19] MEDS: Aspirin 81 MG TAB.CHEW GTUBE SCH (21:01)
[2020-04-20] MEDS: D5% in 0.45% NACL 1,000 ML IVC PRN ×2 (04:48→17:24)
[2020-04-20] MEDS: Bisacodyl 10 MG RECTAL SUPPOSITORY RC PRN (05:13)
[2020-04-20] MEDS: 0.9 % Sodium Chloride 1,000 ML IVC SCH (05:24)
[2020-04-20] MEDS: lisinopriL 10 MG TABLET GTUBE SCH (09:13)
[2020-04-20] MEDS: Gabapentin 300 MG CAPSULE GTUBE SCH ×2 (09:13→19:31)
[2020-04-20] MEDS: diazePAM 2 MG TABLET PO SCH ×2 (09:13→19:30)
[2020-04-20] MEDS: Multivitamin Liquid 15 ML UDC GTUBE SCH (09:14)
[2020-04-20] MEDS: Docusate Oral Soln 100 MG/10 ML UDC GTUBE SCH ×2 (09:14→19:31)
[2020-04-20] MEDS: Vitamin E 200 UNIT (90MG) CAPSULE PO SCH (09:14)
[2020-04-20] MEDS: (Omega-3/Dha/Epa/Fish Oil [Fish Oil 1,000 Mg Softgel] PO SCH (09:15)
[2020-04-20] MEDS: Cariprazine Hcl [Vraylar] 3 MG GTUBE SCH (09:15)
[2020-04-20 12:18] LABS: Basophils % 0.2 %; Eosinophils # 0.2 K/mcL (0.0-0.6); Eosinophils % 1.7 %; Hematocrit 45.3 % (37.5-50.1); Hemoglobin 14.9 g/dL (12.9-16.9); Immature Granulocytes % 0.4 % (0-4); Lymphocytes # 1.7 K/mcL (0.6-4.6); Lymphocytes % 14.6 %; Mean Corpuscular HGB Conc 32.9 g/dL (31.6-35.5); Mean Corpuscular Hemoglobin 31.3 pg (28.0-33.3); Mean Corpuscular Volume 95.2 fL (83.0-100.0); Mean Platelet Volume 9.5 fL (9.4-12.4); Monocytes # 0.9 K/mcL (0.0-1.3); Monocytes % 7.9 %; Platelet Count 309 K/mcL (140-400); Red Blood Count 4.76 M/mcL (4.19-5.50); Segmented Neutrophils % 75.2 %; White Blood Count 11.9 K/mcL (4.3-11.1)
[2020-04-20 12:26] LABS: ABG Base Excess 2 mEq/L (-2 to 3); ABG HCO3 27 mEq/L (21-27); ABG Oxygen Saturation 95 % (95-98); ABG PCO2 41 mmHg (35-45); ABG PH 7.43 pH Units (7.32-7.45); ABG PO2 76 mmHg (85-104); ABG TCO2 28 mEq/L (20-26)
[2020-04-20 12:41] LABS: Alanine Aminotransferase 30 Units/L (7-52); Albumin 3.8 g/dL (3.5-5.7); Albumin/Globulin Ratio 1.3 (1.1-2.2); Alkaline Phosphatase 140 Units/L (34-104); Aspartate Amino Transferase 19 Units/L (13-39); BUN/Creatinine Ratio 14 (6-26); Bilirubin,Total 0.7 mg/dL (0.3-1.0); Blood Urea Nitrogen 12 mg/dL (8-23); Calcium 9.2 mg/dL (8.6-10.3); Carbon Dioxide 31 mEq/L (23-29); Chloride 102 mEq/L (98-107); Glucose 93 mg/dL (70-105); Magnesium 1.8 mg/dL (1.6-2.6); Osmolality,Calculated 297 (280-300); Potassium 3.7 mEq/L (3.5-5.1); Sodium 144 mEq/L (136-145); Total Protein 6.8 g/dL (6.4-8.9); eGFR For African Americans > 60 (> 60); eGFR For Non-African Americans > 60 (> 60)
[2020-04-20] MEDS ORDERED: 0.9 % Sodium Chloride 1,000 ML IV ONE (13:24)
[2020-04-20] MEDS: Ampicillin/Sulbactam 3,000 MG in 0.9 % Sodium Chloride Mini Bag 100 ML IVPB SCH ×2 (16:37→16:38)
[2020-04-20 17:17] LABS: Hepatitis B Surface Antigen Nonreactive (Nonreactive)
[2020-04-20 17:45] LABS: Hepatitis C Virus Antibody Nonreactive (Nonreactive)
[2020-04-20 17:46] LABS: HIV-1&2 Antibody & p24 Ag Nonreactive (Nonreactive)
[2020-04-20] MEDS ORDERED: *HR* LORazepam 2 MG/ML VIAL IVP ONE (18:33)
[2020-04-20] MEDS: cloNIDine HCL 0.1 MG TABLET GTUBE PRN (18:34)
[2020-04-20] MEDS: QUEtiapine Fumarate 25 MG TABLET GTUBE SCH (19:31)
[2020-04-20] MEDS: Aspirin 81 MG TAB.CHEW GTUBE SCH (19:31)
[2020-04-20] MEDS ORDERED: Haloperidol Lactate 5 MG/ML VIAL IVP ONE (21:41)
[2020-04-21] MEDS: Ampicillin/Sulbactam 3,000 MG in 0.9 % Sodium Chloride Mini Bag 100 ML IVPB SCH ×5 (00:05→23:30)
[2020-04-21] MEDS: D5% in 0.45% NACL 1,000 ML IVC PRN (03:25)
[2020-04-21 07:38] LABS: Hematocrit 42.1 % (37.5-50.1); Hemoglobin 14.1 g/dL (12.9-16.9); Mean Corpuscular HGB Conc 33.5 g/dL (31.6-35.5); Mean Corpuscular Hemoglobin 31.8 pg (28.0-33.3); Mean Corpuscular Volume 94.8 fL (83.0-100.0); Mean Platelet Volume 9.3 fL (9.4-12.4); Platelet Count 265 K/mcL (140-400); Red Blood Count 4.44 M/mcL (4.19-5.50); Red Cell Distribution Width 12.2 % (11.5-14.5); White Blood Count 9.1 K/mcL (4.3-11.1)
[2020-04-21 07:55] LABS: Alanine Aminotransferase 26 Units/L (7-52); Albumin 3.3 g/dL (3.5-5.7); Albumin/Globulin Ratio 1.2 (1.1-2.2); Alkaline Phosphatase 121 Units/L (34-104); Aspartate Amino Transferase 18 Units/L (13-39); BUN/Creatinine Ratio 11 (6-26); Bilirubin,Total 0.8 mg/dL (0.3-1.0); Blood Urea Nitrogen 8 mg/dL (8-23); Calcium 8.4 mg/dL (8.6-10.3); Carbon Dioxide 31 mEq/L (23-29); Chloride 105 mEq/L (98-107); Globulin 2.7 g/dL (2.4-3.5); Glucose 98 mg/dL (70-105); Osmolality,Calculated 294 (280-300); Potassium 3.6 mEq/L (3.5-5.1); Sodium 143 mEq/L (136-145); eGFR For African Americans > 60 (> 60); eGFR For Non-African Americans > 60 (> 60)
[2020-04-21] MEDS: Docusate Oral Soln 100 MG/10 ML UDC GTUBE SCH ×2 (09:38→20:01)
[2020-04-21] MEDS: Multivitamin Liquid 15 ML UDC GTUBE SCH (09:39)
[2020-04-21] MEDS: (Omega-3/Dha/Epa/Fish Oil [Fish Oil 1,000 Mg Softgel] PO SCH (09:39)
[2020-04-21] MEDS: Gabapentin 300 MG CAPSULE GTUBE SCH ×2 (09:39→20:01)
[2020-04-21] MEDS: lisinopriL 10 MG TABLET GTUBE SCH (09:39)
[2020-04-21] MEDS: diazePAM 2 MG TABLET PO SCH ×2 (09:39→20:04)
[2020-04-21] MEDS: Vitamin E 200 UNIT (90MG) CAPSULE PO SCH (09:39)
[2020-04-21] MEDS: Cariprazine Hcl [Vraylar] 3 MG GTUBE SCH (09:42)
[2020-04-21] MEDS: Aspirin 81 MG TAB.CHEW GTUBE SCH (20:01)
[2020-04-21] MEDS: QUEtiapine Fumarate 25 MG TABLET GTUBE SCH (20:01)
[2020-04-22] MEDS: Ampicillin/Sulbactam 3,000 MG in 0.9 % Sodium Chloride Mini Bag 100 ML IVPB SCH ×2 (05:36→11:32)
[2020-04-22 05:46] LABS: Basophils % 0.5 %; Eosinophils # 0.4 K/mcL (0.0-0.6); Eosinophils % 5.7 %; Hematocrit 41.8 % (37.5-50.1); Hemoglobin 14.1 g/dL (12.9-16.9); Immature Granulocytes % 0.5 % (0-4); Lymphocytes # 2.1 K/mcL (0.6-4.6); Lymphocytes % 27.6 %; Mean Corpuscular HGB Conc 33.7 g/dL (31.6-35.5); Mean Corpuscular Hemoglobin 31.7 pg (28.0-33.3); Mean Corpuscular Volume 93.9 fL (83.0-100.0); Mean Platelet Volume 9.5 fL (9.4-12.4); Monocytes # 0.7 K/mcL (0.0-1.3); Monocytes % 8.5 %; Neutrophils # 4.4 K/mcL (1.6-8.9); Platelet Count 283 K/mcL (140-400); Red Blood Count 4.45 M/mcL (4.19-5.50); Red Cell Distribution Width 11.8 % (11.5-14.5); Segmented Neutrophils % 57.2 %; White Blood Count 7.7 K/mcL (4.3-11.1)
[2020-04-22 06:05] LABS: BUN/Creatinine Ratio 12 (6-26); Blood Urea Nitrogen 9 mg/dL (8-23); Calcium 8.7 mg/dL (8.6-10.3); Carbon Dioxide 33 mEq/L (23-29); Chloride 104 mEq/L (98-107); Glucose 83 mg/dL (70-105); Osmolality,Calculated 298 (280-300); Potassium 3.5 mEq/L (3.5-5.1); Sodium 145 mEq/L (136-145); eGFR For African Americans > 60 (> 60); eGFR For Non-African Americans > 60 (> 60)
[2020-04-22] MEDS: Vitamin E 200 UNIT (90MG) CAPSULE PO SCH (08:23)
[2020-04-22] MEDS: Gabapentin 300 MG CAPSULE GTUBE SCH ×2 (08:23→21:44)
[2020-04-22] MEDS: (Omega-3/Dha/Epa/Fish Oil [Fish Oil 1,000 Mg Softgel] PO SCH (08:23)
[2020-04-22] MEDS: lisinopriL 10 MG TABLET GTUBE SCH (08:23)
[2020-04-22] MEDS: Multivitamin Liquid 15 ML UDC GTUBE SCH (08:23)
[2020-04-22] MEDS: diazePAM 2 MG TABLET PO SCH ×2 (08:23→18:06)
[2020-04-22] MEDS: Cariprazine Hcl [Vraylar] 3 MG GTUBE SCH (08:23)
[2020-04-22] MEDS: Docusate Oral Soln 100 MG/10 ML UDC GTUBE SCH ×2 (08:23→21:44)
[2020-04-22] MEDS: cloNIDine HCL 0.1 MG TABLET GTUBE PRN (17:57)
[2020-04-22] MEDS ORDERED: diazePAM 5 MG TABLET PO ONE ×2 (17:59)
[2020-04-22] MEDS ORDERED: Amoxicillin/Clavulanate 200 MG/5 ML MLS PO SCH (18:15)
[2020-04-22] MEDS: Amoxicillin/Clavulanate 200 MG/5 ML MLS GTUBE SCH (18:44)
[2020-04-22] MEDS: Aspirin 81 MG TAB.CHEW GTUBE SCH (21:44)
[2020-04-22] MEDS: QUEtiapine Fumarate 25 MG TABLET GTUBE SCH (21:44)
[2020-04-23] MEDS: Amoxicillin/Clavulanate 200 MG/5 ML MLS GTUBE SCH ×2 (05:40→18:27)
[2020-04-23] MEDS: Multivitamin Liquid 15 ML UDC GTUBE SCH (08:12)
[2020-04-23] MEDS: diazePAM 2 MG TABLET PO SCH ×2 (08:13→20:06)
[2020-04-23] MEDS: Vitamin E 200 UNIT (90MG) CAPSULE PO SCH (08:13)
[2020-04-23] MEDS: Cariprazine Hcl [Vraylar] 3 MG GTUBE SCH (08:13)
[2020-04-23] MEDS: Docusate Oral Soln 100 MG/10 ML UDC GTUBE SCH ×2 (08:13→20:22)
[2020-04-23] MEDS: lisinopriL 10 MG TABLET GTUBE SCH (08:13)
[2020-04-23] MEDS: (Omega-3/Dha/Epa/Fish Oil [Fish Oil 1,000 Mg Softgel] PO SCH (08:13)
[2020-04-23] MEDS: Gabapentin 300 MG CAPSULE GTUBE SCH ×2 (08:13→20:06)
[2020-04-23] MEDS: Aspirin 81 MG TAB.CHEW GTUBE SCH (20:05)
[2020-04-23] MEDS: QUEtiapine Fumarate 25 MG TABLET GTUBE SCH (20:06)
[2020-04-24] MEDS: GuaiFENesin Liq 200 MG/10 ML UDC GTUBE PRN (00:06)
[2020-04-24] MEDS: Amoxicillin/Clavulanate 200 MG/5 ML MLS GTUBE SCH (06:13)
[2020-04-24] MEDS: Multivitamin Liquid 15 ML UDC GTUBE SCH (09:02)
[2020-04-24] MEDS: Cariprazine Hcl [Vraylar] 3 MG GTUBE SCH (09:02)
[2020-04-24] MEDS: Vitamin E 200 UNIT (90MG) CAPSULE PO SCH (09:03)
[2020-04-24] MEDS: Gabapentin 300 MG CAPSULE GTUBE SCH ×2 (09:04→22:13)
[2020-04-24] MEDS: lisinopriL 10 MG TABLET GTUBE SCH (09:04)
[2020-04-24] MEDS: diazePAM 2 MG TABLET PO SCH ×2 (09:05→22:13)
[2020-04-24] MEDS: Docusate Oral Soln 100 MG/10 ML UDC GTUBE SCH ×2 (11:26→22:12)
[2020-04-24] MEDS: (Omega-3/Dha/Epa/Fish Oil [Fish Oil 1,000 Mg Softgel] PO SCH (11:27)
[2020-04-24] MEDS ORDERED: E-Z-HD (BARIUM SULF) SUSPENSION PO ONE (13:07)
[2020-04-24] MEDS ORDERED: E-Z-PAQUE (BARIUM SULF) SUSP 1 BOTTLE PO ONE (13:07)
[2020-04-24] MEDS: Amoxicillin/Clavulanate 200 MG/5 ML UDC GTUBE SCH (18:05)
[2020-04-24] MEDS: Aspirin 81 MG TAB.CHEW GTUBE SCH (22:12)
[2020-04-24] MEDS: QUEtiapine Fumarate 25 MG TABLET GTUBE SCH (22:13)
[2020-04-25] MEDS: Multivitamin Liquid 15 ML UDC GTUBE SCH (10:23)
[2020-04-25] MEDS: diazePAM 2 MG TABLET PO SCH ×2 (10:23→21:07)
[2020-04-25] MEDS: Vitamin E 200 UNIT (90MG) CAPSULE PO SCH (10:23)
[2020-04-25] MEDS: lisinopriL 10 MG TABLET GTUBE SCH (10:24)
[2020-04-25] MEDS: Gabapentin 300 MG CAPSULE GTUBE SCH ×2 (10:24→21:07)
[2020-04-25] MEDS: Amoxicillin/Clavulanate 200 MG/5 ML UDC GTUBE SCH ×2 (10:27→16:56)
[2020-04-25] MEDS: Docusate Oral Soln 100 MG/10 ML UDC GTUBE SCH ×2 (10:28→21:07)
[2020-04-25] MEDS: Cariprazine Hcl [Vraylar] 3 MG GTUBE SCH (10:28)
[2020-04-25] MEDS: (Omega-3/Dha/Epa/Fish Oil [Fish Oil 1,000 Mg Softgel] PO SCH (10:29)
[2020-04-25] MEDS: QUEtiapine Fumarate 25 MG TABLET GTUBE SCH (21:08)
[2020-04-25] MEDS: Aspirin 81 MG TAB.CHEW GTUBE SCH (21:08)
[2020-04-26] MEDS: (Omega-3/Dha/Epa/Fish Oil [Fish Oil 1,000 Mg Softgel] PO SCH (09:02)
[2020-04-26] MEDS: lisinopriL 10 MG TABLET GTUBE SCH (09:24)
[2020-04-26] MEDS: diazePAM 2 MG TABLET PO SCH ×2 (09:24→21:15)
[2020-04-26] MEDS: Vitamin E 200 UNIT (90MG) CAPSULE PO SCH (09:24)
[2020-04-26] MEDS: Gabapentin 300 MG CAPSULE GTUBE SCH ×2 (09:24→21:15)
[2020-04-26] MEDS: Multivitamin Liquid 15 ML UDC GTUBE SCH (09:25)
[2020-04-26] MEDS: Amoxicillin/Clavulanate 200 MG/5 ML UDC GTUBE SCH ×2 (09:25→16:36)
[2020-04-26] MEDS: Docusate Oral Soln 100 MG/10 ML UDC GTUBE SCH ×2 (09:25→21:15)
[2020-04-26] MEDS: Cariprazine Hcl [Vraylar] 3 MG GTUBE SCH (09:25)
[2020-04-26] MEDS: QUEtiapine Fumarate 25 MG TABLET GTUBE SCH (21:15)
[2020-04-26] MEDS: Aspirin 81 MG TAB.CHEW GTUBE SCH (21:16)
[2020-04-27 07:34] LABS: Basophils % 0.2 %; Eosinophils # 0.3 K/mcL (0.0-0.6); Eosinophils % 1.8 %; Hematocrit 44.7 % (37.5-50.1); Hemoglobin 14.7 g/dL (12.9-16.9); Immature Granulocytes % 0.3 % (0-4); Lymphocytes # 1.7 K/mcL (0.6-4.6); Lymphocytes % 12.2 %; Mean Corpuscular HGB Conc 32.9 g/dL (31.6-35.5); Mean Corpuscular Hemoglobin 31.1 pg (28.0-33.3); Mean Corpuscular Volume 94.7 fL (83.0-100.0); Mean Platelet Volume 9.3 fL (9.4-12.4); Monocytes # 1.3 K/mcL (0.0-1.3); Monocytes % 9.2 %; Neutrophils # 10.8 K/mcL (1.6-8.9); Platelet Count 312 K/mcL (140-400); Red Blood Count 4.72 M/mcL (4.19-5.50); Segmented Neutrophils % 76.3 %; White Blood Count 14.2 K/mcL (4.3-11.1)
[2020-04-27 07:52] LABS: BUN/Creatinine Ratio 15 (6-26); Blood Urea Nitrogen 10 mg/dL (8-23); Carbon Dioxide 34 mEq/L (23-29); Chloride 99 mEq/L (98-107); Glucose 96 mg/dL (70-105); Osmolality,Calculated 289 (280-300); Sodium 140 mEq/L (136-145); eGFR For African Americans > 60 (> 60); eGFR For Non-African Americans > 60 (> 60)
[2020-04-27] MEDS: Gabapentin 300 MG CAPSULE GTUBE SCH ×2 (08:39→21:40)
[2020-04-27] MEDS: Multivitamin Liquid 15 ML UDC GTUBE SCH (08:39)
[2020-04-27] MEDS: lisinopriL 10 MG TABLET GTUBE SCH (08:40)
[2020-04-27] MEDS: diazePAM 2 MG TABLET PO SCH ×2 (08:40→21:41)
[2020-04-27] MEDS: Docusate Oral Soln 100 MG/10 ML UDC GTUBE SCH ×2 (08:40→21:39)
[2020-04-27] MEDS: Vitamin E 200 UNIT (90MG) CAPSULE PO SCH (08:40)
[2020-04-27] MEDS: Amoxicillin/Clavulanate 200 MG/5 ML UDC GTUBE SCH ×2 (08:40→17:30)
[2020-04-27] MEDS: (Omega-3/Dha/Epa/Fish Oil [Fish Oil 1,000 Mg Softgel] PO SCH (08:41)
[2020-04-27] MEDS: Cariprazine Hcl [Vraylar] 3 MG GTUBE SCH (08:48)
[2020-04-27] MEDS: Aspirin 81 MG TAB.CHEW GTUBE SCH (21:40)
[2020-04-27] MEDS: QUEtiapine Fumarate 25 MG TABLET GTUBE SCH (21:40)
[2020-04-28] MEDS: Vitamin E 200 UNIT (90MG) CAPSULE PO SCH (09:07)
[2020-04-28] MEDS: diazePAM 2 MG TABLET PO SCH ×2 (09:07→20:54)
[2020-04-28] MEDS: Amoxicillin/Clavulanate 200 MG/5 ML UDC GTUBE SCH (09:07)
[2020-04-28] MEDS: Multivitamin Liquid 15 ML UDC GTUBE SCH (09:07)
[2020-04-28] MEDS: Gabapentin 300 MG CAPSULE GTUBE SCH ×2 (09:07→20:54)
[2020-04-28] MEDS: (Omega-3/Dha/Epa/Fish Oil [Fish Oil 1,000 Mg Softgel] PO SCH (09:07)
[2020-04-28] MEDS: lisinopriL 10 MG TABLET GTUBE SCH (09:07)
[2020-04-28] MEDS: Docusate Oral Soln 100 MG/10 ML UDC GTUBE SCH ×2 (09:07→20:53)
[2020-04-28] MEDS: Cariprazine Hcl [Vraylar] 3 MG GTUBE SCH (09:09)
[2020-04-28] MEDS: QUEtiapine Fumarate 25 MG TABLET GTUBE SCH (20:54)
[2020-04-28] MEDS: Aspirin 81 MG TAB.CHEW GTUBE SCH (20:54)
[2020-04-29] MEDS ORDERED: 0.9 % Sodium Chloride 2,000 ML IV ONE (07:57)
[2020-04-29 08:33] LABS: Basophils % 0.2 %; Eosinophils % 0.1 %; Hematocrit 47.8 % (37.5-50.1); Hemoglobin 16.1 g/dL (12.9-16.9); Immature Granulocytes % 0.5 % (0-4); Lymphocytes # 0.9 K/mcL (0.6-4.6); Lymphocytes % 5.5 %; Mean Corpuscular HGB Conc 33.7 g/dL (31.6-35.5); Mean Corpuscular Hemoglobin 31.6 pg (28.0-33.3); Mean Corpuscular Volume 93.9 fL (83.0-100.0); Mean Platelet Volume 9.5 fL (9.4-12.4); Monocytes % 5.6 %; Neutrophils # 14.9 K/mcL (1.6-8.9); Platelet Count 370 K/mcL (140-400); Red Blood Count 5.09 M/mcL (4.19-5.50); Red Cell Distribution Width 11.9 % (11.5-14.5); Segmented Neutrophils % 88.1 %; White Blood Count 16.9 K/mcL (4.3-11.1)
[2020-04-29] MEDS ORDERED: Ondansetron ODT 4 MG TAB.RAPDIS SL PRN (08:38)
[2020-04-29 08:55] LABS: Alanine Aminotransferase 28 Units/L (7-52); Albumin 3.8 g/dL (3.5-5.7); Albumin/Globulin Ratio 1.1 (1.1-2.2); Alkaline Phosphatase 143 Units/L (34-104); Aspartate Amino Transferase 15 Units/L (13-39); BUN/Creatinine Ratio 11 (6-26); Bilirubin,Total 0.9 mg/dL (0.3-1.0); Blood Urea Nitrogen 11 mg/dL (8-23); Calcium 9.4 mg/dL (8.6-10.3); Carbon Dioxide 30 mEq/L (23-29); Chloride 99 mEq/L (98-107); Globulin 3.5 g/dL (2.4-3.5); Glucose 161 mg/dL (70-105); Osmolality,Calculated 295 (280-300); Potassium 3.8 mEq/L (3.5-5.1); Sodium 141 mEq/L (136-145); Total Protein 7.3 g/dL (6.4-8.9); eGFR For African Americans > 60 (> 60); eGFR For Non-African Americans > 60 (> 60)
[2020-04-29] MEDS: (Omega-3/Dha/Epa/Fish Oil [Fish Oil 1,000 Mg Softgel] PO SCH (10:00)
[2020-04-29] MEDS: Docusate Oral Soln 100 MG/10 ML UDC GTUBE SCH ×2 (10:12→19:40)
[2020-04-29] MEDS: diazePAM 2 MG TABLET PO SCH ×2 (10:12→19:41)
[2020-04-29] MEDS: Multivitamin Liquid 15 ML UDC GTUBE SCH (10:12)
[2020-04-29] MEDS: Gabapentin 300 MG CAPSULE GTUBE SCH ×2 (10:12→19:56)
[2020-04-29] MEDS: lisinopriL 10 MG TABLET GTUBE SCH (10:12)
[2020-04-29] MEDS: Cariprazine Hcl [Vraylar] 3 MG GTUBE SCH (10:12)
[2020-04-29] MEDS: Vitamin E 200 UNIT (90MG) CAPSULE PO SCH (10:12)
[2020-04-29] MEDS ORDERED: Piperacillin/Tazobactam 3.375 GM in 0.9 % Sodium Chloride Mini Bag 100 ML IVPB SCH ×2 (10:17→19:00)
[2020-04-29] MEDS ORDERED: 0.9 % Sodium Chloride 1,000 ML IVC ONE (14:58)
[2020-04-29] MEDS ORDERED: 0.9 % Sodium Chloride 1,000 ML ONE (14:59)
[2020-04-29 15:45] LABS: Bilirubin,Urine Negative (Negative); Blood,Urine Large (Negative); Clarity,Urine Cloudy (Clear); Glucose,Urine (UA) Normal (Normal); Ketones,Urine Negative (Negative); Leukocyte Esterase,Urine Trace (Negative); Nitrite,Urine Negative (Negative); PH,Urine 5.5 pH Units (5.0-8.0); Protein,Urine 100 mg/dL (Neg-Trace); Specific Gravity,Urine 1.015 (1.010-1.025); Urobilinogen,Urine Normal (Normal)
[2020-04-29 15:54] LABS: Color,Urine Dark-Yellow (Yellow)
[2020-04-29 15:57] LABS: RBC,Urine TNTC per hpf (0-3); Squamous Epithelial Cell,Urine Few per hpf (None-Few)
[2020-04-29 15:58] LABS: Bacteria,Urine Few per hpf (None-Few)
[2020-04-29] MEDS: 0.9 % Sodium Chloride 1,000 ML IVC SCH ×2 (16:14→23:26)
[2020-04-29] MEDS: Aspirin 81 MG TAB.CHEW GTUBE SCH (19:40)
[2020-04-29] MEDS: QUEtiapine Fumarate 25 MG TABLET GTUBE SCH (19:40)
[2020-04-30] MEDS ORDERED: Norepinephrine 4 MG in 0.9 % Sodium Chloride 250 ML IVC SCH (01:15)
[2020-04-30 01:55] VITALS: BP 77/54
[2020-04-30] MEDS ORDERED: Naloxone 0.4 MG/ML INJ IVP PRN (03:25)
[2020-04-30] MEDS ORDERED: Norepinephrine 4 MG/254 ML IV.SOLN IVC SCH (03:30)
[2020-04-30 07:42] LABS: Acinetobacter baumannii by PCR Not Detected (Not Detect); Candida albicans by PCR Not Detected (Not Detect); Candida glabrata by PCR Not Detected (Not Detect); Candida krusei by PCR Not Detected (Not Detect); Candida parapsilosis by PCR Not Detected (Not Detect); Candida tropicalis by PCR Not Detected (Not Detect); Enterobacter cloacae Cmplx PCR Not Detected (Not Detect); Enterococcus by PCR Not Detected (Not Detect); Escherichia coli by PCR Not Detected (Not Detect); Klebsiella oxytoca by PCR Not Detected (Not Detect); Klebsiella pneumoniae by PCR Not Detected (Not Detect); Proteus by PCR Not Detected (Not Detect); Pseudomonas aeruginosa by PCR DETECTED (Not Detect); Serratia marcescens by PCR Not Detected (Not Detect); Staphylococcus aureus by PCR Not Detected (Not Detect); Staphylococcus by PCR Not Detected (Not Detect); Streptococcus agalactiae(B)PCR Not Detected (Not Detect); Streptococcus by PCR Not Detected (Not Detect); Streptococcus pneumoniae PCR Not Detected (Not Detect); Streptococcus pyogenes (A) PCR Not Detected (Not Detect); blaKPC Carbapenem-Resist Gene Not Detected (Not Detect)
[2020-04-30] MEDS ORDERED: Piperacillin/Tazobactam 3.375 GM in 0.9 % Sodium Chloride Mini Bag 100 ML IVPB SCH (08:00)
== END 2020-04-30 02:49 | disposition short-term general hospital (02) | DRG 945 ==
LOC: INPPIK 13:28
PROVIDERS: ADMIT Family Medicine; ATTEND Family Medicine

== ENCOUNTER 2021-05-05 07:36 | Inpatient (IN) ==
[2021-05-05 08:18] LABS: Basophils # 0.1 K/mcL (0.0-0.2); Basophils % 0.8 %; Eosinophils # 0.2 K/mcL (0.0-0.6); Eosinophils % 2.9 %; Hematocrit 44.8 % (37.5-50.1); Hemoglobin 14.8 g/dL (12.9-16.9); Immature Granulocytes % 0.3 % (0-4); Lymphocytes # 1.1 K/mcL (0.6-4.6); Lymphocytes % 13.7 %; Mean Corpuscular Hemoglobin 30.2 pg (28.0-33.3); Mean Corpuscular Volume 91.4 fL (83.0-100.0); Mean Platelet Volume 8.7 fL (9.4-12.4); Monocytes # 0.9 K/mcL (0.0-1.3); Neutrophils # 5.7 K/mcL (1.6-8.9); Platelet Count 257 K/mcL (140-400); Red Cell Distribution Width 13.2 % (11.5-14.5); Segmented Neutrophils % 71.3 %; White Blood Count 7.9 K/mcL (4.3-11.1)
[2021-05-05 08:38] LABS: Alanine Aminotransferase 14 Units/L (7-52); Albumin 3.5 g/dL (3.5-5.7); Alkaline Phosphatase 161 Units/L (34-104); Aspartate Amino Transferase 14 Units/L (13-39); BUN/Creatinine Ratio 8 (6-26); Bilirubin,Total 0.4 mg/dL (0.3-1.0); Blood Urea Nitrogen 8 mg/dL (8-23); Calcium 8.5 mg/dL (8.6-10.3); Carbon Dioxide 28 mEq/L (23-29); Chloride 103 mEq/L (98-107); Globulin 3.5 g/dL (2.4-3.5); Glucose 103 mg/dL (70-105); Osmolality,Calculated 291 (280-300); Potassium 3.5 mEq/L (3.5-5.1); Sodium 141 mEq/L (136-145); eGFR For African Americans > 60 (> 60); eGFR For Non-African Americans > 60 (> 60)
[2021-05-05 09:16] LABS: Bilirubin,Urine Negative (Negative); Blood,Urine Small (Negative); Clarity,Urine Slightly Cloudy (Clear); Color,Urine Yellow (Yellow); Glucose,Urine (UA) Normal (Normal); Ketones,Urine Negative (Negative); Leukocyte Esterase,Urine Small (Negative); Nitrite,Urine Negative (Negative); Protein,Urine Trace mg/dL (Neg-Trace); Urobilinogen,Urine Normal (Normal)
[2021-05-05 09:24] LABS: Squamous Epithelial Cell,Urine Few per hpf (None-Few); WBC,Urine 50-100 per hpf (0-3)
[2021-05-05] MEDS ORDERED: Furosemide 40 MG/4 ML VIAL IVP ONE (09:29)
[2021-05-05] MEDS ORDERED: levoFLOXacin 750 MG/150 ML 750 MG/150 ML BAG IVPB ONE (10:17)
[2021-05-05] MEDS ORDERED: Isovue-370 500 ML BOTTLE IVP ONE (12:31)
[2021-05-05] MEDS ORDERED: methylPREDNISolone 125 MG/2 ML VIAL IVP ONE ×2 (13:43→17:30)
[2021-05-05] MEDS ORDERED: Famotidine 20 MG/2 ML VIAL IVP ONE ×2 (13:43→17:30)
[2021-05-05] MEDS ORDERED: Naloxone 0.4 MG/ML INJ IVP PRN (16:59)
[2021-05-05] MEDS ORDERED: Acetaminophen 325 MG TABLET PO PRN (17:20)
[2021-05-05] MEDS: Piperacillin/Tazobactam 3.375 GM in 0.9 % Sodium Chloride Mini Bag 100 ML IVPB SCH (17:57)
[2021-05-05] MEDS ORDERED: Acetaminophen 325 MG TABLET PO SCH (18:00)
[2021-05-05] MEDS ORDERED: Acetaminophen 650 MG RECTAL SUPP RC PRN (20:04)
[2021-05-05] MEDS ORDERED: diazePAM 5 MG TABLET PO PRN (20:09)
[2021-05-05] MEDS: Levalbuterol 1 PUFF INHALER IH SCH (22:15)
[2021-05-05] MEDS: Budesonide/Formoterol 160/4.5 1 PUFF INH IH SCH (22:15)
[2021-05-05 22:28] LABS: Bordetella Pertussis Not Detected (Not Detect); Chlamydophila pneumoniae Not Detected (Not Detect); Influenza B Not Detected (Not Detect); Mycoplasma pneumoniae Not Detected (Not Detect); Parainfluenza Virus 1 Not Detected (Not Detect); Parainfluenza Virus 2 Not Detected (Not Detect); Parainfluenza Virus 3 Not Detected (Not Detect); Parainfluenza Virus 4 Not Detected (Not Detect); Respiratory Syncytial Virus DETECTED (Not Detect)
[2021-05-05 22:29] LABS: Adenovirus Not Detected (Not Detect); Coronavirus 229E Not Detected (Not Detect); Coronavirus HKU1 Not Detected (Not Detect); Coronavirus NL63 Not Detected (Not Detect); Coronavirus OC43 Not Detected (Not Detect); Human Metapneumovirus Not Detected (Not Detect); Human Rhinovirus/Enterovirus Not Detected (Not Detect); Influenza A Subtype 2009 H1 Not Detected (Not Detect); SARS-CoV-2 Not Detected (Not Detect)
[2021-05-05] MEDS: Gabapentin 300 MG CAPSULE PO SCH (23:53)
[2021-05-05] MEDS: *HR* HYDROcodone/Acet 5/325 mg TABLET PO PRN (23:54)
[2021-05-06] MEDS: Piperacillin/Tazobactam 3.375 GM in 0.9 % Sodium Chloride Mini Bag 100 ML IVPB SCH ×3 (00:15→15:57)
[2021-05-06] MEDS: Levalbuterol 1 PUFF INHALER IH SCH ×4 (05:29→21:33)
[2021-05-06] MEDS: *HR* Enoxaparin 40 MG/0.4 ML SYRINGE SQ SCH (06:16)
[2021-05-06] MEDS: MethylPREDNISolone 40 MG/ML VIAL IVP SCH ×4 (06:50→21:10)
[2021-05-06 06:53] LABS: Basophils % 0.1 %; Hematocrit 45.8 % (37.5-50.1); Hemoglobin 15.2 g/dL (12.9-16.9); Immature Granulocytes % 0.3 % (0-4); Lymphocytes # 1.3 K/mcL (0.6-4.6); Lymphocytes % 9.5 %; Mean Corpuscular HGB Conc 33.2 g/dL (31.6-35.5); Mean Corpuscular Hemoglobin 30.3 pg (28.0-33.3); Mean Corpuscular Volume 91.2 fL (83.0-100.0); Mean Platelet Volume 8.9 fL (9.4-12.4); Monocytes # 0.5 K/mcL (0.0-1.3); Monocytes % 3.8 %; Neutrophils # 11.7 K/mcL (1.6-8.9); Platelet Count 279 K/mcL (140-400); Red Blood Count 5.02 M/mcL (4.19-5.50); Red Cell Distribution Width 13.2 % (11.5-14.5); Segmented Neutrophils % 86.3 %; White Blood Count 13.5 K/mcL (4.3-11.1)
[2021-05-06 07:12] LABS: Alanine Aminotransferase 15 Units/L (7-52); Albumin 3.6 g/dL (3.5-5.7); Albumin/Globulin Ratio 0.9 (1.1-2.2); Alkaline Phosphatase 148 Units/L (34-104); Aspartate Amino Transferase 18 Units/L (13-39); BUN/Creatinine Ratio 13 (6-26); Bilirubin,Total 0.5 mg/dL (0.3-1.0); Blood Urea Nitrogen 16 mg/dL (8-23); Carbon Dioxide 28 mEq/L (23-29); Chloride 103 mEq/L (98-107); Globulin 3.9 g/dL (2.4-3.5); Glucose 159 mg/dL (70-105); Osmolality,Calculated 289 (280-300); Potassium 3.6 mEq/L (3.5-5.1); Sodium 137 mEq/L (136-145); Total Protein 7.5 g/dL (6.4-8.9); eGFR For African Americans > 60 (> 60); eGFR For Non-African Americans 59 (> 60)
[2021-05-06] MEDS: Aspirin Enteric Coated 81 MG Tablet PO SCH (08:16)
[2021-05-06] MEDS: Gabapentin 300 MG CAPSULE PO SCH ×2 (08:16→19:49)
[2021-05-06] MEDS ORDERED: lisinopriL 10 MG TABLET PO SCH (09:00)
[2021-05-06] MEDS: (Cariprazine Hcl [Vraylar] 3 MG Capsule) PO SCH (09:21)
[2021-05-06] MEDS: Budesonide/Formoterol 160/4.5 1 PUFF INH IH SCH ×2 (10:40→21:33)
[2021-05-06] MEDS ORDERED: 0.9 % Sodium Chloride 500 ML IVC ONE (11:56)
[2021-05-07] MEDS: Piperacillin/Tazobactam 3.375 GM in 0.9 % Sodium Chloride Mini Bag 100 ML IVPB SCH ×4 (00:05→23:53)
[2021-05-07] MEDS: MethylPREDNISolone 40 MG/ML VIAL IVP SCH ×4 (03:53→20:15)
[2021-05-07] MEDS: Levalbuterol 1 PUFF INHALER IH SCH ×4 (04:15→21:45)
[2021-05-07] MEDS: *HR* Enoxaparin 40 MG/0.4 ML SYRINGE SQ SCH (05:41)
[2021-05-07 08:04] LABS: Basophils % 0.1 %; Hematocrit 44.7 % (37.5-50.1); Hemoglobin 14.5 g/dL (12.9-16.9); Immature Granulocytes % 0.6 % (0-4); Lymphocytes % 6.2 %; Mean Corpuscular HGB Conc 32.4 g/dL (31.6-35.5); Mean Corpuscular Volume 92.5 fL (83.0-100.0); Mean Platelet Volume 9.2 fL (9.4-12.4); Monocytes # 0.7 K/mcL (0.0-1.3); Monocytes % 4.3 %; Platelet Count 312 K/mcL (140-400); Red Blood Count 4.83 M/mcL (4.19-5.50); Red Cell Distribution Width 13.1 % (11.5-14.5); Segmented Neutrophils % 88.8 %; White Blood Count 15.7 K/mcL (4.3-11.1)
[2021-05-07 08:09] LABS: Neutrophils # 13.9 K/mcL (1.6-8.9)
[2021-05-07 08:21] LABS: BUN/Creatinine Ratio 24 (6-26); Blood Urea Nitrogen 28 mg/dL (8-23); Calcium 9.1 mg/dL (8.6-10.3); Carbon Dioxide 30 mEq/L (23-29); Chloride 104 mEq/L (98-107); Glucose 135 mg/dL (70-105); Osmolality,Calculated 304 (280-300); Potassium 3.6 mEq/L (3.5-5.1); Sodium 143 mEq/L (136-145); eGFR For African Americans > 60 (> 60); eGFR For Non-African Americans > 60 (> 60)
[2021-05-07] MEDS: Aspirin Enteric Coated 81 MG Tablet PO SCH (09:02)
[2021-05-07] MEDS: (Cariprazine Hcl [Vraylar] 3 MG Capsule) PO SCH (09:02)
[2021-05-07] MEDS: Gabapentin 300 MG CAPSULE PO SCH ×2 (09:02→20:16)
[2021-05-07] MEDS ORDERED: levoFLOXacin 750 MG/150 ML 750 MG/150 ML BAG IVPB SCH (09:30)
[2021-05-07] MEDS: Budesonide/Formoterol 160/4.5 1 PUFF INH IH SCH ×2 (10:05→21:44)
[2021-05-08] MEDS: MethylPREDNISolone 40 MG/ML VIAL IVP SCH ×3 (03:44→16:27)
[2021-05-08] MEDS: Levalbuterol 1 PUFF INHALER IH SCH ×3 (04:29→15:23)
[2021-05-08] MEDS: *HR* HYDROcodone/Acet 5/325 mg TABLET PO PRN ×2 (06:00→17:41)
[2021-05-08] MEDS: *HR* Enoxaparin 40 MG/0.4 ML SYRINGE SQ SCH (06:00)
[2021-05-08 07:10] LABS: Basophils % 0.2 %; Hematocrit 42.7 % (37.5-50.1); Hemoglobin 13.8 g/dL (12.9-16.9); Immature Granulocytes % 0.8 % (0-4); Lymphocytes # 0.9 K/mcL (0.6-4.6); Lymphocytes % 6.8 %; Mean Corpuscular HGB Conc 32.3 g/dL (31.6-35.5); Mean Corpuscular Hemoglobin 29.9 pg (28.0-33.3); Mean Corpuscular Volume 92.6 fL (83.0-100.0); Mean Platelet Volume 9.2 fL (9.4-12.4); Monocytes # 0.5 K/mcL (0.0-1.3); Monocytes % 4.2 %; Platelet Count 315 K/mcL (140-400); Red Blood Count 4.61 M/mcL (4.19-5.50); Red Cell Distribution Width 12.9 % (11.5-14.5); White Blood Count 12.5 K/mcL (4.3-11.1)
[2021-05-08 07:32] LABS: BUN/Creatinine Ratio 22 (6-26); Blood Urea Nitrogen 23 mg/dL (8-23); Calcium 8.9 mg/dL (8.6-10.3); Carbon Dioxide 31 mEq/L (23-29); Chloride 105 mEq/L (98-107); Glucose 138 mg/dL (70-105); Osmolality,Calculated 306 (280-300); Sodium 145 mEq/L (136-145); eGFR For African Americans > 60 (> 60); eGFR For Non-African Americans > 60 (> 60)
[2021-05-08] MEDS: Piperacillin/Tazobactam 3.375 GM in 0.9 % Sodium Chloride Mini Bag 100 ML IVPB SCH ×2 (10:17→16:26)
[2021-05-08] MEDS: Gabapentin 300 MG CAPSULE PO SCH ×2 (10:18→21:30)
[2021-05-08] MEDS: Aspirin Enteric Coated 81 MG Tablet PO SCH (10:18)
[2021-05-08] MEDS: (Cariprazine Hcl [Vraylar] 3 MG Capsule) PO SCH (10:19)
[2021-05-08] MEDS ORDERED: *HR* HYDROcodone/Acet 5/325 mg TABLET PO ONE (11:25)
[2021-05-08] MEDS: Budesonide/Formoterol 160/4.5 1 PUFF INH IH SCH (12:57)
[2021-05-08] MEDS: Acetaminophen 325 MG TABLET PO PRN (14:47)
[2021-05-09] MEDS: Budesonide/Formoterol 160/4.5 1 PUFF INH IH SCH ×3 (00:11→23:56)
[2021-05-09] MEDS: Levalbuterol 1 PUFF INHALER IH SCH ×3 (00:11→09:22)
[2021-05-09] MEDS: Piperacillin/Tazobactam 3.375 GM in 0.9 % Sodium Chloride Mini Bag 100 ML IVPB SCH ×3 (00:12→15:37)
[2021-05-09] MEDS: MethylPREDNISolone 40 MG/ML VIAL IVP SCH ×3 (00:12→15:38)
[2021-05-09] MEDS: *HR* Enoxaparin 40 MG/0.4 ML SYRINGE SQ SCH (06:17)
[2021-05-09 07:33] LABS: Basophils % 0.4 %; Hemoglobin 13.4 g/dL (12.9-16.9); Immature Granulocytes % 2.2 % (0-4); Lymphocytes # 1.1 K/mcL (0.6-4.6); Lymphocytes % 10.8 %; Mean Corpuscular HGB Conc 31.9 g/dL (31.6-35.5); Mean Corpuscular Hemoglobin 29.8 pg (28.0-33.3); Mean Corpuscular Volume 93.5 fL (83.0-100.0); Mean Platelet Volume 9.2 fL (9.4-12.4); Monocytes # 0.6 K/mcL (0.0-1.3); Monocytes % 6.5 %; Neutrophils # 7.8 K/mcL (1.6-8.9); Platelet Count 290 K/mcL (140-400); Red Blood Count 4.49 M/mcL (4.19-5.50); Segmented Neutrophils % 80.1 %; White Blood Count 9.8 K/mcL (4.3-11.1)
[2021-05-09 08:42] LABS: BUN/Creatinine Ratio 27 (6-26); Blood Urea Nitrogen 24 mg/dL (8-23); Calcium 8.9 mg/dL (8.6-10.3); Carbon Dioxide 32 mEq/L (23-29); Chloride 104 mEq/L (98-107); Glucose 113 mg/dL (70-105); Osmolality,Calculated 299 (280-300); Potassium 3.7 mEq/L (3.5-5.1); Sodium 142 mEq/L (136-145); eGFR For African Americans > 60 (> 60); eGFR For Non-African Americans > 60 (> 60)
[2021-05-09] MEDS: Aspirin Enteric Coated 81 MG Tablet PO SCH (09:18)
[2021-05-09] MEDS: Gabapentin 300 MG CAPSULE PO SCH ×2 (09:23→20:26)
[2021-05-09] MEDS: (Cariprazine Hcl [Vraylar] 3 MG Capsule) PO SCH ×2 (09:24→15:35)
[2021-05-09] MEDS: *HR* HYDROcodone/Acet 5/325 mg TABLET PO PRN (09:36)
[2021-05-09] MEDS: Ipratropium/Albuterol Neb 3 ML IH PRN ×2 (11:37→17:40)
[2021-05-09] MEDS ORDERED: Ketorolac 15 MG/ML VIAL IVP PRN (16:49)
[2021-05-09] MEDS ORDERED: *HR* Atropine Sulfate 1 MG/10 ML SYRINGE IVP PRN (16:50)
[2021-05-10] MEDS: MethylPREDNISolone 40 MG/ML VIAL IVP SCH ×3 (00:24→16:23)
[2021-05-10] MEDS: Piperacillin/Tazobactam 3.375 GM in 0.9 % Sodium Chloride Mini Bag 100 ML IVPB SCH ×3 (00:25→16:23)
[2021-05-10] MEDS: *HR* Enoxaparin 40 MG/0.4 ML SYRINGE SQ SCH (06:14)
[2021-05-10] MEDS: Acetaminophen 325 MG TABLET PO PRN (08:53)
[2021-05-10] MEDS: Gabapentin 300 MG CAPSULE PO SCH (08:54)
[2021-05-10] MEDS: Aspirin Enteric Coated 81 MG Tablet PO SCH (08:54)
[2021-05-10] MEDS: (Cariprazine Hcl [Vraylar] 3 MG Capsule) PO SCH (09:01)
[2021-05-10 09:28] LABS: Hemoglobin 13.6 g/dL (12.9-16.9); Mean Corpuscular HGB Conc 32.4 g/dL (31.6-35.5); Mean Corpuscular Hemoglobin 29.8 pg (28.0-33.3); Mean Corpuscular Volume 92.1 fL (83.0-100.0); Mean Platelet Volume 9.5 fL (9.4-12.4); Platelet Count 307 K/mcL (140-400); Red Blood Count 4.56 M/mcL (4.19-5.50); Red Cell Distribution Width 12.9 % (11.5-14.5); White Blood Count 11.2 K/mcL (4.3-11.1)
[2021-05-10 10:02] LABS: BUN/Creatinine Ratio 28 (6-26); Blood Urea Nitrogen 20 mg/dL (8-23); Calcium 8.8 mg/dL (8.6-10.3); Carbon Dioxide 31 mEq/L (23-29); Chloride 106 mEq/L (98-107); Glucose 103 mg/dL (70-105); Magnesium 2.5 mg/dL (1.6-2.6); Osmolality,Calculated 297 (280-300); Potassium 4.1 mEq/L (3.5-5.1); Sodium 142 mEq/L (136-145); eGFR For African Americans > 60 (> 60); eGFR For Non-African Americans > 60 (> 60)
[2021-05-10] MEDS: Budesonide/Formoterol 160/4.5 1 PUFF INH IH SCH (10:11)
[2021-05-10 12:44] LABS: Monocytes # 0.7 K/mcL (0.0-1.3); Neutrophils # 8.3 K/mcL (1.6-8.9)
[2021-05-10 12:45] LABS: Platelet Estimate Normal (Normal)
[2021-05-10 16:17] VITALS: BP 173/85; PULSE 55; RESP 18; TEMP 97.6; O2SAT 92
== END 2021-05-10 19:05 | disposition other institution (70) | DRG 193 ==
LOC: EMEROOPIK 07:36 → INPPIK 17:16
PROVIDERS: ADMIT Internal Medicine; ATTEND Internal Medicine

== ENCOUNTER 2021-05-10 14:55 | Inpatient (IN) ==
[2021-05-10] MEDS: Budesonide/Formoterol 160/4.5 1 PUFF INH IH SCH ×2 (20:02→21:12)
[2021-05-10] MEDS: (Cariprazine Hcl [Vraylar] 3 MG Capsule) PO SCH (20:33)
[2021-05-10] MEDS: (Omega-3/Dha/Epa/Fish Oil [Fish Oil 1,000 Mg Softgel] PO SCH (20:34)
[2021-05-10] MEDS: Multivit/Ca/Min/Fe/FA 1 TAB TABLET PO SCH (20:34)
[2021-05-10] MEDS: QUEtiapine Fumarate 25 MG TABLET PO SCH (20:34)
[2021-05-10] MEDS: lisinopriL 10 MG TABLET PO SCH (20:35)
[2021-05-10] MEDS: Gabapentin 300 MG CAPSULE PO SCH (20:46)
[2021-05-11] MEDS ORDERED: *HR* Atropine Sulfate 1 MG/10 ML SYRINGE IVP PRN (00:27)
[2021-05-11] MEDS: *HR* Enoxaparin 40 MG/0.4 ML SYRINGE SQ SCH (06:02)
[2021-05-11 07:54] LABS: Basophils # 0.1 K/mcL (0.0-0.2); Basophils % 0.9 %; Eosinophils % 0.1 %; Hematocrit 41.2 % (37.5-50.1); Hemoglobin 13.6 g/dL (12.9-16.9); Immature Granulocytes % 3.9 % (0-4); Lymphocytes # 2.2 K/mcL (0.6-4.6); Lymphocytes % 17.5 %; Mean Corpuscular Hemoglobin 29.8 pg (28.0-33.3); Mean Corpuscular Volume 90.2 fL (83.0-100.0); Mean Platelet Volume 9.2 fL (9.4-12.4); Monocytes # 0.9 K/mcL (0.0-1.3); Monocytes % 6.9 %; Neutrophils # 8.8 K/mcL (1.6-8.9); Platelet Count 321 K/mcL (140-400); Red Blood Count 4.57 M/mcL (4.19-5.50); Red Cell Distribution Width 12.7 % (11.5-14.5); Segmented Neutrophils % 70.7 %; White Blood Count 12.5 K/mcL (4.3-11.1)
[2021-05-11 08:17] LABS: BUN/Creatinine Ratio 27 (6-26); Blood Urea Nitrogen 20 mg/dL (8-23); Calcium 8.5 mg/dL (8.6-10.3); Carbon Dioxide 32 mEq/L (23-29); Chloride 105 mEq/L (98-107); Glucose 82 mg/dL (70-105); Osmolality,Calculated 298 (280-300); Potassium 3.6 mEq/L (3.5-5.1); Sodium 143 mEq/L (136-145); eGFR For African Americans > 60 (> 60); eGFR For Non-African Americans > 60 (> 60)
[2021-05-11] MEDS: lisinopriL 10 MG TABLET PO SCH ×2 (08:31→20:30)
[2021-05-11] MEDS: Gabapentin 300 MG CAPSULE PO SCH ×2 (08:31→20:30)
[2021-05-11] MEDS: Aspirin Enteric Coated 81 MG Tablet PO SCH (08:31)
[2021-05-11] MEDS: Multivit/Ca/Min/Fe/FA 1 TAB TABLET PO SCH (08:31)
[2021-05-11] MEDS: QUEtiapine Fumarate 25 MG TABLET PO SCH (08:31)
[2021-05-11] MEDS: (Cariprazine Hcl [Vraylar] 3 MG Capsule) PO SCH (08:33)
[2021-05-11] MEDS: (Omega-3/Dha/Epa/Fish Oil [Fish Oil 1,000 Mg Softgel] PO SCH (08:39)
[2021-05-11] MEDS: Budesonide/Formoterol 160/4.5 1 PUFF INH IH SCH ×2 (10:28→20:48)
[2021-05-11 11:24] LABS: Adenovirus Not Detected (Not Detect); Bordetella Pertussis Not Detected (Not Detect); Chlamydophila pneumoniae Not Detected (Not Detect); Coronavirus 229E Not Detected (Not Detect); Coronavirus HKU1 Not Detected (Not Detect); Coronavirus NL63 Not Detected (Not Detect); Coronavirus OC43 Not Detected (Not Detect); Human Metapneumovirus Not Detected (Not Detect); Human Rhinovirus/Enterovirus Not Detected (Not Detect); Influenza A Subtype 2009 H1 Not Detected (Not Detect); Influenza B Not Detected (Not Detect); Mycoplasma pneumoniae Not Detected (Not Detect); Parainfluenza Virus 1 Not Detected (Not Detect); Parainfluenza Virus 2 Not Detected (Not Detect); Parainfluenza Virus 3 Not Detected (Not Detect); Parainfluenza Virus 4 Not Detected (Not Detect); Respiratory Syncytial Virus DETECTED (Not Detect); SARS-CoV-2 Not Detected (Not Detect)
[2021-05-11] MEDS: MethylPREDNISolone 40 MG/ML VIAL IVP SCH (18:44)
[2021-05-12] MEDS: *HR* Enoxaparin 40 MG/0.4 ML SYRINGE SQ SCH (05:57)
[2021-05-12] MEDS: MethylPREDNISolone 40 MG/ML VIAL IVP SCH ×2 (05:57→17:33)
[2021-05-12] MEDS: Budesonide/Formoterol 160/4.5 1 PUFF INH IH SCH ×2 (08:05→20:34)
[2021-05-12 08:08] LABS: Basophils # 0.1 K/mcL (0.0-0.2); Basophils % 0.7 %; Eosinophils % 0.2 %; Hematocrit 42.9 % (37.5-50.1); Hemoglobin 13.8 g/dL (12.9-16.9); Immature Granulocytes % 2.5 % (0-4); Lymphocytes # 1.5 K/mcL (0.6-4.6); Lymphocytes % 11.2 %; Mean Corpuscular HGB Conc 32.2 g/dL (31.6-35.5); Mean Corpuscular Hemoglobin 29.9 pg (28.0-33.3); Mean Corpuscular Volume 92.9 fL (83.0-100.0); Mean Platelet Volume 9.5 fL (9.4-12.4); Monocytes # 0.6 K/mcL (0.0-1.3); Monocytes % 4.6 %; Neutrophils # 10.5 K/mcL (1.6-8.9); Platelet Count 289 K/mcL (140-400); Red Blood Count 4.62 M/mcL (4.19-5.50); Red Cell Distribution Width 12.9 % (11.5-14.5); Segmented Neutrophils % 80.8 %
[2021-05-12] MEDS: Aspirin Enteric Coated 81 MG Tablet PO SCH (08:19)
[2021-05-12] MEDS: Gabapentin 300 MG CAPSULE PO SCH ×2 (08:19→20:12)
[2021-05-12] MEDS: lisinopriL 10 MG TABLET PO SCH ×2 (08:20→20:12)
[2021-05-12] MEDS: Multivit/Ca/Min/Fe/FA 1 TAB TABLET PO SCH (08:20)
[2021-05-12] MEDS: QUEtiapine Fumarate 25 MG TABLET PO SCH (08:20)
[2021-05-12] MEDS: (Omega-3/Dha/Epa/Fish Oil [Fish Oil 1,000 Mg Softgel] PO SCH (08:21)
[2021-05-12] MEDS: (Cariprazine Hcl [Vraylar] 3 MG Capsule) PO SCH (08:21)
[2021-05-12 08:31] LABS: BUN/Creatinine Ratio 22 (6-26); Blood Urea Nitrogen 16 mg/dL (8-23); Calcium 8.4 mg/dL (8.6-10.3); Carbon Dioxide 30 mEq/L (23-29); Chloride 103 mEq/L (98-107); Glucose 85 mg/dL (70-105); Osmolality,Calculated 294 (280-300); Potassium 3.8 mEq/L (3.5-5.1); Sodium 142 mEq/L (136-145); eGFR For African Americans > 60 (> 60); eGFR For Non-African Americans > 60 (> 60)
[2021-05-13] MEDS: MethylPREDNISolone 40 MG/ML VIAL IVP SCH ×2 (06:33→17:48)
[2021-05-13] MEDS: *HR* Enoxaparin 40 MG/0.4 ML SYRINGE SQ SCH (06:34)
[2021-05-13] MEDS: Budesonide/Formoterol 160/4.5 1 PUFF INH IH SCH ×2 (08:11→21:24)
[2021-05-13] MEDS: Gabapentin 300 MG CAPSULE PO SCH ×2 (08:43→21:33)
[2021-05-13] MEDS: QUEtiapine Fumarate 25 MG TABLET PO SCH (08:43)
[2021-05-13] MEDS: (Cariprazine Hcl [Vraylar] 3 MG Capsule) PO SCH (08:44)
[2021-05-13] MEDS: Multivit/Ca/Min/Fe/FA 1 TAB TABLET PO SCH (08:44)
[2021-05-13] MEDS: Aspirin Enteric Coated 81 MG Tablet PO SCH (08:44)
[2021-05-13] MEDS: (Omega-3/Dha/Epa/Fish Oil [Fish Oil 1,000 Mg Softgel] PO SCH (08:44)
[2021-05-13] MEDS: lisinopriL 10 MG TABLET PO SCH (08:44)
[2021-05-13] MEDS ORDERED: Perflutren Lipid Microsphere 1.3 ML in 0.9 % Sodium Chloride 8.7 ML IVP PRN (15:43)
[2021-05-13] MEDS: lisinopriL 20 MG TABLET PO SCH (21:35)
[2021-05-14] MEDS: MethylPREDNISolone 40 MG/ML VIAL IVP SCH ×2 (06:36→17:16)
[2021-05-14] MEDS: *HR* Enoxaparin 40 MG/0.4 ML SYRINGE SQ SCH (06:37)
[2021-05-14] MEDS: Multivit/Ca/Min/Fe/FA 1 TAB TABLET PO SCH (09:01)
[2021-05-14] MEDS: lisinopriL 20 MG TABLET PO SCH ×3 (09:02→22:13)
[2021-05-14] MEDS: QUEtiapine Fumarate 25 MG TABLET PO SCH (09:02)
[2021-05-14] MEDS: Aspirin Enteric Coated 81 MG Tablet PO SCH (09:02)
[2021-05-14] MEDS: Gabapentin 300 MG CAPSULE PO SCH ×2 (09:02→22:06)
[2021-05-14] MEDS: (Omega-3/Dha/Epa/Fish Oil [Fish Oil 1,000 Mg Softgel] PO SCH (09:03)
[2021-05-14] MEDS: (Cariprazine Hcl [Vraylar] 3 MG Capsule) PO SCH (09:04)
[2021-05-14] MEDS: Budesonide/Formoterol 160/4.5 1 PUFF INH IH SCH ×2 (09:36→21:45)
[2021-05-14] MEDS: Acetaminophen 325 MG TABLET PO PRN (15:05)
[2021-05-15] MEDS: *HR* Enoxaparin 40 MG/0.4 ML SYRINGE SQ SCH (07:05)
[2021-05-15] MEDS: Multivit/Ca/Min/Fe/FA 1 TAB TABLET PO SCH (07:45)
[2021-05-15] MEDS: QUEtiapine Fumarate 25 MG TABLET PO SCH (07:45)
[2021-05-15] MEDS: lisinopriL 20 MG TABLET PO SCH ×2 (07:45→19:38)
[2021-05-15] MEDS: Aspirin Enteric Coated 81 MG Tablet PO SCH (07:45)
[2021-05-15] MEDS: Gabapentin 300 MG CAPSULE PO SCH ×2 (07:45→19:51)
[2021-05-15] MEDS: (Cariprazine Hcl [Vraylar] 3 MG Capsule) PO SCH (07:50)
[2021-05-15] MEDS: (Omega-3/Dha/Epa/Fish Oil [Fish Oil 1,000 Mg Softgel] PO SCH (07:50)
[2021-05-15 09:12] LABS: Hematocrit 47.9 % (37.5-50.1); Hemoglobin 15.4 g/dL (12.9-16.9); Mean Corpuscular HGB Conc 32.2 g/dL (31.6-35.5); Mean Corpuscular Hemoglobin 29.5 pg (28.0-33.3); Mean Corpuscular Volume 91.8 fL (83.0-100.0); Mean Platelet Volume 9.4 fL (9.4-12.4); Platelet Count 360 K/mcL (140-400); Red Blood Count 5.22 M/mcL (4.19-5.50); Red Cell Distribution Width 12.8 % (11.5-14.5); White Blood Count 12.5 K/mcL (4.3-11.1)
[2021-05-15 09:59] LABS: BUN/Creatinine Ratio 27 (6-26); Blood Urea Nitrogen 21 mg/dL (8-23); Calcium 9.1 mg/dL (8.6-10.3); Carbon Dioxide 29 mEq/L (23-29); Chloride 101 mEq/L (98-107); Glucose 85 mg/dL (70-105); Magnesium 2.2 mg/dL (1.6-2.6); Osmolality,Calculated 292 (280-300); Potassium 3.8 mEq/L (3.5-5.1); Sodium 140 mEq/L (136-145); eGFR For African Americans > 60 (> 60); eGFR For Non-African Americans > 60 (> 60)
[2021-05-15] MEDS: Budesonide/Formoterol 160/4.5 1 PUFF INH IH SCH ×2 (11:00→21:14)
[2021-05-15] MEDS ORDERED: 0.9 % Sodium Chloride 1,000 ML IV ONE (15:32)
[2021-05-15] MEDS: 0.9 % Sodium Chloride 1,000 ML IVC SCH (19:45)
[2021-05-15 19:50] LABS: Bilirubin,Urine Negative (Negative); Blood,Urine Small (Negative); Clarity,Urine Cloudy (Clear); Color,Urine Yellow (Yellow); Glucose,Urine (UA) Normal (Normal); Ketones,Urine Negative (Negative); Leukocyte Esterase,Urine Small (Negative); Nitrite,Urine Negative (Negative); PH,Urine 5.5 pH Units (5.0-8.0); Protein,Urine Trace mg/dL (Neg-Trace); Specific Gravity,Urine 1.025 (1.010-1.025); Urobilinogen,Urine Normal (Normal)
[2021-05-15 20:34] LABS: Calcium Oxalate Crystals,Urine Present per hpf
[2021-05-15 20:35] LABS: Hyaline Casts,Urine Few per lpf (None Seen)
[2021-05-15 20:36] LABS: Bacteria,Urine Many per hpf (None-Few); Mucus,Urine Moderate per lpf (None-Few); Squamous Epithelial Cell,Urine Few per hpf (None-Few); WBC,Urine TNTC per hpf (0-3)
[2021-05-16] MEDS: 0.9 % Sodium Chloride 1,000 ML IVC SCH ×3 (03:41→19:39)
[2021-05-16] MEDS: *HR* Enoxaparin 40 MG/0.4 ML SYRINGE SQ SCH (05:46)
[2021-05-16] MEDS: Multivit/Ca/Min/Fe/FA 1 TAB TABLET PO SCH (08:42)
[2021-05-16] MEDS: Gabapentin 300 MG CAPSULE PO SCH ×2 (08:43→19:55)
[2021-05-16] MEDS: QUEtiapine Fumarate 25 MG TABLET PO SCH (08:43)
[2021-05-16] MEDS: Aspirin Enteric Coated 81 MG Tablet PO SCH (08:43)
[2021-05-16] MEDS: (Omega-3/Dha/Epa/Fish Oil [Fish Oil 1,000 Mg Softgel] PO SCH (08:44)
[2021-05-16] MEDS: lisinopriL 20 MG TABLET PO SCH ×3 (08:44→22:21)
[2021-05-16] MEDS: (Cariprazine Hcl [Vraylar] 3 MG Capsule) PO SCH (08:51)
[2021-05-16] MEDS: Budesonide/Formoterol 160/4.5 1 PUFF INH IH SCH ×2 (11:09→21:55)
[2021-05-16] MEDS ORDERED: Isovue-370 500 ML BOTTLE IVP ONE (21:08)
[2021-05-16 22:16] LABS: ABG Base Excess 4 mEq/L (-2 to 3); ABG HCO3 29 mEq/L (21-27); ABG Oxygen Saturation 84 % (95-98); ABG PCO2 48 mmHg (35-45); ABG PO2 50 mmHg (85-104); ABG TCO2 31 mEq/L (20-26)
[2021-05-16] MEDS: Acetaminophen 325 MG TABLET PO PRN (22:21)
[2021-05-16 22:42] VITALS: BP 147/72; PULSE 104; TEMP 99.2
[2021-05-16 22:43] VITALS: O2SAT 98
[2021-05-17 00:10] VITALS: RESP 23
== END 2021-05-16 23:50 | disposition short-term general hospital (02) | DRG 189 ==
LOC: INPPIK 19:20
PROVIDERS: ADMIT Internal Medicine; ATTEND Internal Medicine

== ENCOUNTER 2021-05-20 16:01 | Inpatient (IN) ==
[2021-05-20] MEDS ORDERED: diazePAM 5 MG TABLET PO PRN (16:12)
[2021-05-20] MEDS ORDERED: lisinopriL 10 MG TABLET PO PRN (16:12)
[2021-05-20] MEDS: Aspirin Enteric Coated 81 MG Tablet PO SCH (23:34)
[2021-05-21] MEDS: Gabapentin 300 MG CAPSULE PO SCH ×3 (01:32→21:47)
[2021-05-21] MEDS: (Cariprazine Hcl [Vraylar] 3 MG Capsule) PO SCH ×2 (01:32→09:03)
[2021-05-21] MEDS: Budesonide/Formoterol 160/4.5 1 PUFF INH IH SCH ×3 (02:26→21:13)
[2021-05-21 07:57] LABS: Basophils % 0.1 %; Eosinophils % 0.1 %; Hematocrit 43.6 % (37.5-50.1); Hemoglobin 14.5 g/dL (12.9-16.9); Immature Granulocytes % 0.8 % (0-4); Lymphocytes # 2.7 K/mcL (0.6-4.6); Lymphocytes % 22.7 %; Mean Corpuscular HGB Conc 33.3 g/dL (31.6-35.5); Mean Corpuscular Hemoglobin 29.8 pg (28.0-33.3); Mean Corpuscular Volume 89.7 fL (83.0-100.0); Mean Platelet Volume 9.5 fL (9.4-12.4); Monocytes # 1.1 K/mcL (0.0-1.3); Neutrophils # 7.9 K/mcL (1.6-8.9); Platelet Count 360 K/mcL (140-400); Red Blood Count 4.86 M/mcL (4.19-5.50); Red Cell Distribution Width 13.1 % (11.5-14.5); Segmented Neutrophils % 67.3 %; White Blood Count 11.8 K/mcL (4.3-11.1)
[2021-05-21] MEDS: Aspirin Enteric Coated 81 MG Tablet PO SCH (09:02)
[2021-05-21] MEDS: Vitamin E 200 UNIT (90MG) CAPSULE PO SCH (09:02)
[2021-05-21] MEDS: QUEtiapine Fumarate 25 MG TABLET PO SCH (09:02)
[2021-05-21] MEDS: Multivit/Ca/Min/Fe/FA 1 TAB TABLET PO SCH (09:02)
[2021-05-21] MEDS: levoFLOXacin 500 MG TABLET PO SCH (09:02)
[2021-05-21] MEDS: (Fish Oil 1,000 Mg Softgel) PO SCH (09:03)
[2021-05-21 09:04] LABS: BUN/Creatinine Ratio 24 (6-26); Blood Urea Nitrogen 24 mg/dL (8-23); Calcium 9.4 mg/dL (8.6-10.3); Carbon Dioxide 32 mEq/L (23-29); Chloride 102 mEq/L (98-107); Glucose 75 mg/dL (70-105); Osmolality,Calculated 297 (280-300); Sodium 142 mEq/L (136-145); eGFR For African Americans > 60 (> 60); eGFR For Non-African Americans > 60 (> 60)
[2021-05-21] MEDS: *HR* Heparin 5,000 UNIT/ML VIAL SQ SCH (17:44)
[2021-05-22] MEDS: Acetaminophen 325 MG TABLET PO PRN (00:34)
[2021-05-22] MEDS: *HR* Heparin 5,000 UNIT/ML VIAL SQ SCH ×2 (05:39→17:36)
[2021-05-22] MEDS: Budesonide/Formoterol 160/4.5 1 PUFF INH IH SCH ×2 (08:48→22:14)
[2021-05-22] MEDS ORDERED: polyethylene glycoL 3350 17 GM POWD.PACK PO PRN (09:33)
[2021-05-22] MEDS: QUEtiapine Fumarate 25 MG TABLET PO SCH (10:26)
[2021-05-22] MEDS: Aspirin Enteric Coated 81 MG Tablet PO SCH (10:26)
[2021-05-22] MEDS: Vitamin E 200 UNIT (90MG) CAPSULE PO SCH (10:26)
[2021-05-22] MEDS: Gabapentin 300 MG CAPSULE PO SCH ×2 (10:26→20:00)
[2021-05-22] MEDS: predniSONE 20 MG TABLET PO SCH (10:27)
[2021-05-22] MEDS: levoFLOXacin 500 MG TABLET PO SCH (10:27)
[2021-05-22] MEDS: Multivit/Ca/Min/Fe/FA 1 TAB TABLET PO SCH (10:27)
[2021-05-22] MEDS: (Fish Oil 1,000 Mg Softgel) PO SCH (10:30)
[2021-05-22] MEDS: (Cariprazine Hcl [Vraylar] 3 MG Capsule) PO SCH (10:35)
[2021-05-23] MEDS: *HR* Heparin 5,000 UNIT/ML VIAL SQ SCH ×2 (05:49→17:13)
[2021-05-23] MEDS: Budesonide/Formoterol 160/4.5 1 PUFF INH IH SCH ×2 (08:37→22:34)
[2021-05-23] MEDS: Gabapentin 300 MG CAPSULE PO SCH ×2 (08:51→21:47)
[2021-05-23] MEDS: Vitamin E 200 UNIT (90MG) CAPSULE PO SCH (08:51)
[2021-05-23] MEDS: QUEtiapine Fumarate 25 MG TABLET PO SCH (08:51)
[2021-05-23] MEDS: levoFLOXacin 500 MG TABLET PO SCH (08:51)
[2021-05-23] MEDS: Multivit/Ca/Min/Fe/FA 1 TAB TABLET PO SCH (08:52)
[2021-05-23] MEDS: Aspirin Enteric Coated 81 MG Tablet PO SCH (08:52)
[2021-05-23] MEDS: predniSONE 20 MG TABLET PO SCH (08:52)
[2021-05-23] MEDS: (Cariprazine Hcl [Vraylar] 3 MG Capsule) PO SCH (08:53)
[2021-05-23] MEDS: (Fish Oil 1,000 Mg Softgel) PO SCH (08:54)
[2021-05-24] MEDS: *HR* Heparin 5,000 UNIT/ML VIAL SQ SCH ×2 (05:42→17:27)
[2021-05-24] MEDS: Gabapentin 300 MG CAPSULE PO SCH ×2 (09:30→20:34)
[2021-05-24] MEDS: Aspirin Enteric Coated 81 MG Tablet PO SCH (09:30)
[2021-05-24] MEDS: Vitamin E 200 UNIT (90MG) CAPSULE PO SCH (09:31)
[2021-05-24] MEDS: predniSONE 20 MG TABLET PO SCH (09:32)
[2021-05-24] MEDS: QUEtiapine Fumarate 25 MG TABLET PO SCH (09:32)
[2021-05-24] MEDS: Multivit/Ca/Min/Fe/FA 1 TAB TABLET PO SCH (09:32)
[2021-05-24] MEDS: (Fish Oil 1,000 Mg Softgel) PO SCH (09:33)
[2021-05-24] MEDS: (Cariprazine Hcl [Vraylar] 3 MG Capsule) PO SCH (09:35)
[2021-05-24] MEDS: Acetaminophen 325 MG TABLET PO PRN (10:38)
[2021-05-24] MEDS: Budesonide/Formoterol 160/4.5 1 PUFF INH IH SCH ×2 (10:39→21:33)
[2021-05-25] MEDS: *HR* Heparin 5,000 UNIT/ML VIAL SQ SCH ×2 (05:46→16:32)
[2021-05-25] MEDS: QUEtiapine Fumarate 25 MG TABLET PO SCH (08:40)
[2021-05-25] MEDS: Vitamin E 200 UNIT (90MG) CAPSULE PO SCH (08:42)
[2021-05-25] MEDS: predniSONE 20 MG TABLET PO SCH (08:43)
[2021-05-25] MEDS: Multivit/Ca/Min/Fe/FA 1 TAB TABLET PO SCH (08:43)
[2021-05-25] MEDS: Aspirin Enteric Coated 81 MG Tablet PO SCH (08:43)
[2021-05-25] MEDS: Gabapentin 300 MG CAPSULE PO SCH ×2 (08:44→21:18)
[2021-05-25] MEDS: (Cariprazine Hcl [Vraylar] 3 MG Capsule) PO SCH (08:45)
[2021-05-25] MEDS: Budesonide/Formoterol 160/4.5 1 PUFF INH IH SCH ×2 (09:49→21:03)
[2021-05-25] MEDS: (Fish Oil 1,000 Mg Softgel) PO SCH (11:33)
[2021-05-26] MEDS: *HR* Heparin 5,000 UNIT/ML VIAL SQ SCH ×2 (05:22→17:48)
[2021-05-26] MEDS: Multivit/Ca/Min/Fe/FA 1 TAB TABLET PO SCH (08:41)
[2021-05-26] MEDS: Aspirin Enteric Coated 81 MG Tablet PO SCH (08:41)
[2021-05-26] MEDS: QUEtiapine Fumarate 25 MG TABLET PO SCH (08:41)
[2021-05-26] MEDS: Vitamin E 200 UNIT (90MG) CAPSULE PO SCH (08:41)
[2021-05-26] MEDS: Gabapentin 300 MG CAPSULE PO SCH ×2 (08:41→22:06)
[2021-05-26] MEDS: predniSONE 20 MG TABLET PO SCH (08:42)
[2021-05-26] MEDS: (Cariprazine Hcl [Vraylar] 3 MG Capsule) PO SCH (08:44)
[2021-05-26] MEDS: (Fish Oil 1,000 Mg Softgel) PO SCH (10:05)
[2021-05-26] MEDS: Budesonide/Formoterol 160/4.5 1 PUFF INH IH SCH ×2 (10:19→21:05)
[2021-05-26 20:59] LABS: Bilirubin,Urine Negative (Negative); Blood,Urine Trace-intact (Negative); Clarity,Urine Clear (Clear); Color,Urine Yellow (Yellow); Glucose,Urine (UA) Normal (Normal); Ketones,Urine Negative (Negative); Leukocyte Esterase,Urine Trace (Negative); Nitrite,Urine Negative (Negative); Protein,Urine Negative (Neg-Trace); Specific Gravity,Urine 1.025 (1.010-1.025); Urobilinogen,Urine Normal (Normal)
[2021-05-26 21:09] LABS: Amorphous Sediment,Urine Few per hpf (None-Few)
[2021-05-27] MEDS: *HR* Heparin 5,000 UNIT/ML VIAL SQ SCH ×2 (06:02→18:45)
[2021-05-27] MEDS: Gabapentin 300 MG CAPSULE PO SCH ×2 (10:48→21:30)
[2021-05-27] MEDS: Aspirin Enteric Coated 81 MG Tablet PO SCH (10:48)
[2021-05-27] MEDS: Vitamin E 200 UNIT (90MG) CAPSULE PO SCH (10:48)
[2021-05-27] MEDS: QUEtiapine Fumarate 25 MG TABLET PO SCH (10:48)
[2021-05-27] MEDS: Multivit/Ca/Min/Fe/FA 1 TAB TABLET PO SCH (10:48)
[2021-05-27] MEDS: predniSONE 20 MG TABLET PO SCH (10:49)
[2021-05-27] MEDS: (Fish Oil 1,000 Mg Softgel) PO SCH (10:49)
[2021-05-27] MEDS: (Cariprazine Hcl [Vraylar] 3 MG Capsule) PO SCH (10:53)
[2021-05-27] MEDS: Acetaminophen 325 MG TABLET PO PRN (11:03)
[2021-05-27] MEDS: Budesonide/Formoterol 160/4.5 1 PUFF INH IH SCH ×2 (11:20→21:50)
[2021-05-28] MEDS: *HR* Heparin 5,000 UNIT/ML VIAL SQ SCH (05:47)
[2021-05-28 07:15] VITALS: BP 145/77; PULSE 51; TEMP 97.6
[2021-05-28] MEDS: Aspirin Enteric Coated 81 MG Tablet PO SCH (08:16)
[2021-05-28] MEDS: Gabapentin 300 MG CAPSULE PO SCH (08:17)
[2021-05-28] MEDS: (Fish Oil 1,000 Mg Softgel) PO SCH (08:17)
[2021-05-28] MEDS: Vitamin E 200 UNIT (90MG) CAPSULE PO SCH (08:17)
[2021-05-28] MEDS: QUEtiapine Fumarate 25 MG TABLET PO SCH (08:17)
[2021-05-28] MEDS: Multivit/Ca/Min/Fe/FA 1 TAB TABLET PO SCH (08:17)
[2021-05-28] MEDS: (Cariprazine Hcl [Vraylar] 3 MG Capsule) PO SCH (08:22)
[2021-05-28] MEDS ORDERED: predniSONE 10 MG TABLET PO SCH (09:00)
[2021-05-28] MEDS: Budesonide/Formoterol 160/4.5 1 PUFF INH IH SCH (09:32)
[2021-05-28 09:36] VITALS: RESP 17; O2SAT 97
== END 2021-05-28 10:59 | disposition home health service (06) | DRG 56 ==
LOC: INPPIK 22:49
PROVIDERS: ADMIT Internal Medicine; ATTEND Internal Medicine

== ENCOUNTER 2022-01-24 13:51 | Inpatient (IN) ==
[2022-01-24] MEDS ORDERED: Azithromycin 500 MG in 0.9 % Sodium Chloride 250 ML IVPB ONE (13:55)
[2022-01-24] MEDS ORDERED: cefTRIAXone 2,000 MG in 0.9 % Sodium Chloride 10 ML IVP ONE (13:55)
[2022-01-24] MEDS ORDERED: 0.9 % Sodium Chloride 1,000 ML IVC SCH (14:00)
[2022-01-24 14:22] LABS: Basophils % 0.3 %; Eosinophils # 0.1 K/mcL (0.0-0.6); Eosinophils % 0.8 %; Hemoglobin 15.4 g/dL (12.9-16.9); Immature Granulocytes % 0.5 % (0-4); Lymphocytes # 0.8 K/mcL (0.6-4.6); Lymphocytes % 7.7 %; Mean Corpuscular HGB Conc 32.8 g/dL (31.6-35.5); Mean Corpuscular Hemoglobin 30.2 pg (28.0-33.3); Mean Corpuscular Volume 92.2 fL (83.0-100.0); Monocytes # 0.9 K/mcL (0.0-1.3); Monocytes % 9.6 %; Neutrophils # 7.9 K/mcL (1.6-8.9); Platelet Count 295 K/mcL (140-400); Red Cell Distribution Width 12.6 % (11.5-14.5); Segmented Neutrophils % 81.1 %; White Blood Count 9.7 K/mcL (4.3-11.1)
[2022-01-24 14:30] LABS: INR 1.1; Prothrombin Time 12.7 Seconds (9.4-12.1)
[2022-01-24 14:30] LABS: ABG Base Excess 2 mEq/L (-2 to 3); ABG HCO3 27 mEq/L (21-27); ABG Oxygen Saturation 97 % (95-98); ABG PCO2 44 mmHg (35-45); ABG PO2 90 mmHg (85-104); ABG TCO2 28 mEq/L (20-26)
[2022-01-24 14:33] LABS: Activated Partial Thrombo Time 33.4 Seconds (26.0-36.0)
[2022-01-24 14:41] LABS: Troponin I < 0.03 ng/mL (< 0.04)
[2022-01-24 14:43] LABS: Alanine Aminotransferase 11 Units/L (7-52); Albumin 3.7 g/dL (3.5-5.7); Alkaline Phosphatase 160 Units/L (34-104); Aspartate Amino Transferase 21 Units/L (13-39); BUN/Creatinine Ratio 6 (6-26); Bilirubin,Direct 0.1 mg/dL (0.0-0.2); Bilirubin,Indirect 0.3 mg/dL (0.0-1.0); Bilirubin,Total 0.4 mg/dL (0.3-1.0); Blood Urea Nitrogen 8 mg/dL (8-23); Calcium 9.4 mg/dL (8.6-10.3); Carbon Dioxide 28 mEq/L (23-29); Chloride 104 mEq/L (98-107); Globulin 3.7 g/dL (2.4-3.5); Glucose 102 mg/dL (70-105); Osmolality,Calculated 291 (280-300); Potassium 3.9 mEq/L (3.5-5.1); Sodium 141 mEq/L (136-145); Total Protein 7.4 g/dL (6.4-8.9); eGFR For African Americans > 60 (> 60); eGFR For Non-African Americans 55 (> 60)
[2022-01-24] MEDS ORDERED: Melatonin 3 MG TABLET PO PRN (15:19)
[2022-01-24] MEDS ORDERED: Naloxone 0.4 MG/ML INJ IVP PRN (15:19)
[2022-01-24] MEDS ORDERED: diazePAM 5 MG TABLET PO PRN (15:23)
[2022-01-24] MEDS: lisinopriL 10 MG TABLET PO SCH (15:30)
[2022-01-24] MEDS: Gabapentin 300 MG CAPSULE PO SCH (20:47)
[2022-01-24] MEDS: Acetaminophen 325 MG TABLET PO PRN (20:48)
[2022-01-24] MEDS: *HR* Heparin 5,000 UNIT/ML VIAL SQ SCH ×2 (20:50→23:43)
[2022-01-24] MEDS: Budesonide/Formoterol 160/4.5 1 PUFF INH IH SCH (23:36)
[2022-01-25] MEDS: *HR* Heparin 5,000 UNIT/ML VIAL SQ SCH ×3 (06:39→21:55)
[2022-01-25] MEDS: Acetaminophen 325 MG TABLET PO PRN (06:39)
[2022-01-25 07:13] LABS: Basophils % 0.1 %; Hematocrit 45.9 % (37.5-50.1); Hemoglobin 14.8 g/dL (12.9-16.9); Immature Granulocytes % 0.3 % (0-4); Lymphocytes # 1.2 K/mcL (0.6-4.6); Lymphocytes % 12.3 %; Mean Corpuscular HGB Conc 32.2 g/dL (31.6-35.5); Mean Corpuscular Hemoglobin 29.8 pg (28.0-33.3); Mean Corpuscular Volume 92.5 fL (83.0-100.0); Mean Platelet Volume 9.3 fL (9.4-12.4); Monocytes # 0.6 K/mcL (0.0-1.3); Monocytes % 6.1 %; Neutrophils # 8.2 K/mcL (1.6-8.9); Platelet Count 309 K/mcL (140-400); Red Blood Count 4.96 M/mcL (4.19-5.50); Red Cell Distribution Width 12.6 % (11.5-14.5); Segmented Neutrophils % 81.2 %; White Blood Count 10.1 K/mcL (4.3-11.1)
[2022-01-25] MEDS: (Cariprazine Hcl [Vraylar] 3 MG Capsule) PO SCH (07:19)
[2022-01-25] MEDS: (Omega-3/Dha/Epa/Fish Oil [Fish Oil 1,000 Mg Softgel]) PO SCH (07:19)
[2022-01-25 07:42] LABS: Alanine Aminotransferase 31 Units/L (7-52); Albumin 3.4 g/dL (3.5-5.7); Alkaline Phosphatase 138 Units/L (34-104); Aspartate Amino Transferase 136 Units/L (13-39); BUN/Creatinine Ratio 14 (6-26); Bilirubin,Total 0.3 mg/dL (0.3-1.0); Blood Urea Nitrogen 13 mg/dL (8-23); Calcium 8.9 mg/dL (8.6-10.3); Carbon Dioxide 28 mEq/L (23-29); Chloride 106 mEq/L (98-107); Globulin 3.5 g/dL (2.4-3.5); Glucose 120 mg/dL (70-105); Magnesium 2.1 mg/dL (1.6-2.6); Osmolality,Calculated 295 (280-300); Potassium 4.2 mEq/L (3.5-5.1); Sodium 142 mEq/L (136-145); Total Protein 6.9 g/dL (6.4-8.9); eGFR For African Americans > 60 (> 60); eGFR For Non-African Americans > 60 (> 60)
[2022-01-25] MEDS ORDERED: Dexamethasone Sodium Phos/PF 10 MG/ML VIAL IVP SCH (09:00)
[2022-01-25] MEDS: Aspirin Enteric Coated 81 MG Tablet PO SCH (09:07)
[2022-01-25] MEDS: Vitamin E 200 UNIT (90MG) CAPSULE PO SCH (09:07)
[2022-01-25] MEDS: Multivit/Ca/Min/Fe/FA 1 TAB TABLET PO SCH (09:07)
[2022-01-25] MEDS: QUEtiapine Fumarate 25 MG TABLET PO SCH (09:08)
[2022-01-25] MEDS: Megestrol Acetate 400 MG/10 ML UDC PO SCH (09:08)
[2022-01-25] MEDS: Gabapentin 300 MG CAPSULE PO SCH ×2 (09:08→21:56)
[2022-01-25] MEDS: Budesonide/Formoterol 160/4.5 1 PUFF INH IH SCH ×2 (10:23→22:23)
[2022-01-26] MEDS: *HR* Heparin 5,000 UNIT/ML VIAL SQ SCH ×3 (05:17→21:25)
[2022-01-26] MEDS: Dexamethasone Sodium Phos/PF 10 MG/ML VIAL IVP SCH (06:44)
[2022-01-26 08:01] LABS: Basophils % 0.1 %; Hematocrit 42.1 % (37.5-50.1); Immature Granulocytes % 0.4 % (0-4); Lymphocytes # 1.7 K/mcL (0.6-4.6); Mean Corpuscular HGB Conc 33.3 g/dL (31.6-35.5); Mean Corpuscular Hemoglobin 30.8 pg (28.0-33.3); Mean Corpuscular Volume 92.5 fL (83.0-100.0); Mean Platelet Volume 9.4 fL (9.4-12.4); Monocytes # 0.8 K/mcL (0.0-1.3); Monocytes % 7.1 %; Neutrophils # 8.9 K/mcL (1.6-8.9); Platelet Count 299 K/mcL (140-400); Red Blood Count 4.55 M/mcL (4.19-5.50); Red Cell Distribution Width 12.5 % (11.5-14.5); Segmented Neutrophils % 77.4 %; White Blood Count 11.5 K/mcL (4.3-11.1)
[2022-01-26 08:11] LABS: BUN/Creatinine Ratio 19 (6-26); Blood Urea Nitrogen 15 mg/dL (8-23); Carbon Dioxide 31 mEq/L (23-29); Chloride 106 mEq/L (98-107); Glucose 96 mg/dL (70-105); Potassium 3.9 mEq/L (3.5-5.1); Sodium 141 mEq/L (136-145); eGFR For African Americans > 60 (> 60); eGFR For Non-African Americans > 60 (> 60)
[2022-01-26] MEDS: Budesonide/Formoterol 160/4.5 1 PUFF INH IH SCH ×2 (08:11→22:10)
[2022-01-26 08:12] LABS: Calcium 8.8 mg/dL (8.6-10.3); Osmolality,Calculated 293 (280-300)
[2022-01-26] MEDS: Megestrol Acetate 400 MG/10 ML UDC PO SCH (08:29)
[2022-01-26] MEDS: Vitamin E 200 UNIT (90MG) CAPSULE PO SCH (08:30)
[2022-01-26] MEDS: Aspirin Enteric Coated 81 MG Tablet PO SCH (08:30)
[2022-01-26] MEDS: Multivit/Ca/Min/Fe/FA 1 TAB TABLET PO SCH (08:30)
[2022-01-26] MEDS: QUEtiapine Fumarate 25 MG TABLET PO SCH (08:31)
[2022-01-26] MEDS: (Omega-3/Dha/Epa/Fish Oil [Fish Oil 1,000 Mg Softgel]) PO SCH (08:31)
[2022-01-26] MEDS: (Cariprazine Hcl [Vraylar] 3 MG Capsule) PO SCH (08:31)
[2022-01-26] MEDS: Gabapentin 300 MG CAPSULE PO SCH ×2 (08:31→21:25)
[2022-01-26] MEDS: Acetaminophen 325 MG TABLET PO PRN (21:24)
[2022-01-27] MEDS: *HR* Heparin 5,000 UNIT/ML VIAL SQ SCH ×3 (05:37→22:05)
[2022-01-27 08:23] LABS: Basophils % 0.4 %; Eosinophils # 0.1 K/mcL (0.0-0.6); Eosinophils % 1.5 %; Hematocrit 42.6 % (37.5-50.1); Hemoglobin 13.7 g/dL (12.9-16.9); Immature Granulocytes % 0.4 % (0-4); Lymphocytes # 2.4 K/mcL (0.6-4.6); Lymphocytes % 29.4 %; Mean Corpuscular HGB Conc 32.2 g/dL (31.6-35.5); Mean Corpuscular Volume 93.4 fL (83.0-100.0); Mean Platelet Volume 9.1 fL (9.4-12.4); Monocytes # 0.8 K/mcL (0.0-1.3); Monocytes % 9.7 %; Neutrophils # 4.8 K/mcL (1.6-8.9); Platelet Count 280 K/mcL (140-400); Red Blood Count 4.56 M/mcL (4.19-5.50); Red Cell Distribution Width 12.6 % (11.5-14.5); Segmented Neutrophils % 58.6 %; White Blood Count 8.2 K/mcL (4.3-11.1)
[2022-01-27] MEDS: Multivit/Ca/Min/Fe/FA 1 TAB TABLET PO SCH (08:34)
[2022-01-27] MEDS: Vitamin E 200 UNIT (90MG) CAPSULE PO SCH (08:34)
[2022-01-27] MEDS: Aspirin Enteric Coated 81 MG Tablet PO SCH (08:34)
[2022-01-27] MEDS: Dexamethasone Sodium Phos/PF 10 MG/ML VIAL IVP SCH (08:35)
[2022-01-27] MEDS: QUEtiapine Fumarate 25 MG TABLET PO SCH ×2 (08:35→14:38)
[2022-01-27] MEDS: Megestrol Acetate 400 MG/10 ML UDC PO SCH (08:35)
[2022-01-27] MEDS: Gabapentin 300 MG CAPSULE PO SCH ×3 (08:35→22:06)
[2022-01-27] MEDS: (Cariprazine Hcl [Vraylar] 3 MG Capsule) PO SCH ×2 (08:35→14:38)
[2022-01-27] MEDS: (Omega-3/Dha/Epa/Fish Oil [Fish Oil 1,000 Mg Softgel]) PO SCH (08:35)
[2022-01-27] MEDS: Budesonide/Formoterol 160/4.5 1 PUFF INH IH SCH ×2 (09:02→20:49)
[2022-01-27 09:17] LABS: BUN/Creatinine Ratio 20 (6-26); Blood Urea Nitrogen 15 mg/dL (8-23); Calcium 8.5 mg/dL (8.6-10.3); Carbon Dioxide 30 mEq/L (23-29); Chloride 106 mEq/L (98-107); Glucose 81 mg/dL (70-105); Magnesium 1.9 mg/dL (1.6-2.6); Osmolality,Calculated 294 (280-300); Potassium 3.6 mEq/L (3.5-5.1); Sodium 142 mEq/L (136-145); eGFR For African Americans > 60 (> 60); eGFR For Non-African Americans > 60 (> 60)
[2022-01-27] MEDS ORDERED: lisinopriL 10 MG TABLET PO SCH (21:00)
[2022-01-27] MEDS: lisinopriL 10 MG TABLET PO SCH (22:05)
[2022-01-28] MEDS: *HR* Heparin 5,000 UNIT/ML VIAL SQ SCH ×3 (05:49→20:50)
[2022-01-28 07:18] LABS: Basophils % 0.3 %; Eosinophils % 0.3 %; Hematocrit 44.5 % (37.5-50.1); Hemoglobin 14.4 g/dL (12.9-16.9); Immature Granulocytes % 0.7 % (0-4); Lymphocytes # 1.8 K/mcL (0.6-4.6); Lymphocytes % 26.6 %; Mean Corpuscular HGB Conc 32.4 g/dL (31.6-35.5); Mean Corpuscular Hemoglobin 29.8 pg (28.0-33.3); Mean Corpuscular Volume 92.1 fL (83.0-100.0); Monocytes # 0.6 K/mcL (0.0-1.3); Monocytes % 8.9 %; Neutrophils # 4.4 K/mcL (1.6-8.9); Platelet Count 281 K/mcL (140-400); Red Blood Count 4.83 M/mcL (4.19-5.50); Red Cell Distribution Width 12.3 % (11.5-14.5); Segmented Neutrophils % 63.2 %; White Blood Count 6.9 K/mcL (4.3-11.1)
[2022-01-28 07:39] LABS: BUN/Creatinine Ratio 20 (6-26); Blood Urea Nitrogen 16 mg/dL (8-23); Carbon Dioxide 30 mEq/L (23-29); Chloride 102 mEq/L (98-107); Glucose 98 mg/dL (70-105); Osmolality,Calculated 291 (280-300); Potassium 3.5 mEq/L (3.5-5.1); Sodium 140 mEq/L (136-145); eGFR For African Americans > 60 (> 60); eGFR For Non-African Americans > 60 (> 60)
[2022-01-28] MEDS: Budesonide/Formoterol 160/4.5 1 PUFF INH IH SCH ×2 (08:22→20:29)
[2022-01-28] MEDS: Megestrol Acetate 400 MG/10 ML UDC PO SCH (10:19)
[2022-01-28] MEDS: Multivit/Ca/Min/Fe/FA 1 TAB TABLET PO SCH (10:20)
[2022-01-28] MEDS: Aspirin Enteric Coated 81 MG Tablet PO SCH (10:20)
[2022-01-28] MEDS: Vitamin E 200 UNIT (90MG) CAPSULE PO SCH (10:20)
[2022-01-28] MEDS: QUEtiapine Fumarate 25 MG TABLET PO SCH (10:21)
[2022-01-28] MEDS: (Cariprazine Hcl [Vraylar] 3 MG Capsule) PO SCH (10:21)
[2022-01-28] MEDS: Gabapentin 300 MG CAPSULE PO SCH ×2 (10:21→20:50)
[2022-01-28] MEDS: lisinopriL 10 MG TABLET PO SCH ×2 (10:21→20:50)
[2022-01-28] MEDS: Dexamethasone Sodium Phos/PF 10 MG/ML VIAL IVP SCH (10:22)
[2022-01-29] MEDS: *HR* Heparin 5,000 UNIT/ML VIAL SQ SCH ×3 (05:18→21:42)
[2022-01-29] MEDS: Budesonide/Formoterol 160/4.5 1 PUFF INH IH SCH ×2 (07:39→20:18)
[2022-01-29 07:58] LABS: Basophils % 0.3 %; Eosinophils % 0.2 %; Hematocrit 44.7 % (37.5-50.1); Hemoglobin 14.9 g/dL (12.9-16.9); Immature Granulocytes % 0.9 % (0-4); Lymphocytes # 2.2 K/mcL (0.6-4.6); Lymphocytes % 21.3 %; Mean Corpuscular HGB Conc 33.3 g/dL (31.6-35.5); Mean Corpuscular Hemoglobin 30.3 pg (28.0-33.3); Mean Platelet Volume 9.1 fL (9.4-12.4); Monocytes # 0.7 K/mcL (0.0-1.3); Monocytes % 6.5 %; Neutrophils # 7.3 K/mcL (1.6-8.9); Platelet Count 292 K/mcL (140-400); Red Blood Count 4.91 M/mcL (4.19-5.50); Red Cell Distribution Width 12.2 % (11.5-14.5); Segmented Neutrophils % 70.8 %; White Blood Count 10.3 K/mcL (4.3-11.1)
[2022-01-29 08:15] LABS: BUN/Creatinine Ratio 18 (6-26); Blood Urea Nitrogen 13 mg/dL (8-23); Calcium 9.4 mg/dL (8.6-10.3); Carbon Dioxide 30 mEq/L (23-29); Chloride 103 mEq/L (98-107); Glucose 87 mg/dL (70-105); Osmolality,Calculated 291 (280-300); Potassium 3.8 mEq/L (3.5-5.1); Sodium 141 mEq/L (136-145); eGFR For African Americans > 60 (> 60); eGFR For Non-African Americans > 60 (> 60)
[2022-01-29] MEDS: QUEtiapine Fumarate 25 MG TABLET PO SCH (08:56)
[2022-01-29] MEDS: dexAMETHasone 4 MG TABLET PO SCH (08:56)
[2022-01-29] MEDS: Aspirin Enteric Coated 81 MG Tablet PO SCH (08:56)
[2022-01-29] MEDS: Multivit/Ca/Min/Fe/FA 1 TAB TABLET PO SCH (08:56)
[2022-01-29] MEDS: lisinopriL 10 MG TABLET PO SCH (08:56)
[2022-01-29] MEDS: Megestrol Acetate 400 MG/10 ML UDC PO SCH (08:56)
[2022-01-29] MEDS: Vitamin E 200 UNIT (90MG) CAPSULE PO SCH (08:56)
[2022-01-29] MEDS: Gabapentin 300 MG CAPSULE PO SCH ×2 (08:56→21:43)
[2022-01-29] MEDS: (Cariprazine Hcl [Vraylar] 3 MG Capsule) PO SCH (08:58)
[2022-01-30] MEDS: Acetaminophen 325 MG TABLET PO PRN (05:02)
[2022-01-30] MEDS: *HR* Heparin 5,000 UNIT/ML VIAL SQ SCH ×3 (05:02→20:24)
[2022-01-30] MEDS: Budesonide/Formoterol 160/4.5 1 PUFF INH IH SCH ×2 (07:44→20:29)
[2022-01-30] MEDS: Multivit/Ca/Min/Fe/FA 1 TAB TABLET PO SCH (08:36)
[2022-01-30] MEDS: Megestrol Acetate 400 MG/10 ML UDC PO SCH (08:36)
[2022-01-30] MEDS: Gabapentin 300 MG CAPSULE PO SCH ×2 (08:36→20:24)
[2022-01-30] MEDS: dexAMETHasone 4 MG TABLET PO SCH (08:36)
[2022-01-30] MEDS: Vitamin E 200 UNIT (90MG) CAPSULE PO SCH (08:37)
[2022-01-30] MEDS: Aspirin Enteric Coated 81 MG Tablet PO SCH (08:37)
[2022-01-30] MEDS: QUEtiapine Fumarate 25 MG TABLET PO SCH (08:37)
[2022-01-30] MEDS: (Cariprazine Hcl [Vraylar] 3 MG Capsule) PO SCH (08:38)
[2022-01-30 08:45] LABS: Basophils # 0.1 K/mcL (0.0-0.2); Basophils % 0.7 %; Eosinophils % 0.4 %; Hematocrit 47.5 % (37.5-50.1); Hemoglobin 15.6 g/dL (12.9-16.9); Immature Granulocytes % 1.9 % (0-4); Lymphocytes # 3.3 K/mcL (0.6-4.6); Lymphocytes % 31.3 %; Mean Corpuscular HGB Conc 32.8 g/dL (31.6-35.5); Mean Corpuscular Hemoglobin 30.5 pg (28.0-33.3); Mean Platelet Volume 9.2 fL (9.4-12.4); Monocytes # 0.6 K/mcL (0.0-1.3); Monocytes % 5.3 %; Neutrophils # 6.3 K/mcL (1.6-8.9); Platelet Count 299 K/mcL (140-400); Red Blood Count 5.11 M/mcL (4.19-5.50); Red Cell Distribution Width 12.4 % (11.5-14.5); Segmented Neutrophils % 60.4 %; White Blood Count 10.5 K/mcL (4.3-11.1)
[2022-01-30 09:05] LABS: BUN/Creatinine Ratio 22 (6-26); Blood Urea Nitrogen 20 mg/dL (8-23); Calcium 9.4 mg/dL (8.6-10.3); Carbon Dioxide 24 mEq/L (23-29); Chloride 106 mEq/L (98-107); Glucose 91 mg/dL (70-105); Osmolality,Calculated 292 (280-300); Potassium 4.3 mEq/L (3.5-5.1); Sodium 140 mEq/L (136-145); eGFR For African Americans > 60 (> 60); eGFR For Non-African Americans > 60 (> 60)
[2022-01-30] MEDS ORDERED: Bisacodyl 10 MG RECTAL SUPPOSITORY RC PRN (13:42)
[2022-01-30] MEDS ORDERED: Sennosides 8.6 MG TABLET PO PRN (13:42)
[2022-01-30] MEDS: lisinopriL 10 MG TABLET PO SCH (20:25)
[2022-01-31] MEDS: *HR* Heparin 5,000 UNIT/ML VIAL SQ SCH (05:56)
[2022-01-31 07:13] VITALS: RESP 18
[2022-01-31 07:37] LABS: Basophils % 0.4 %; Eosinophils % 0.2 %; Hematocrit 46.3 % (37.5-50.1); Hemoglobin 15.3 g/dL (12.9-16.9); Immature Granulocytes % 2.2 % (0-4); Lymphocytes # 2.4 K/mcL (0.6-4.6); Lymphocytes % 23.5 %; Mean Corpuscular Hemoglobin 30.1 pg (28.0-33.3); Monocytes # 0.6 K/mcL (0.0-1.3); Monocytes % 5.7 %; Neutrophils # 6.9 K/mcL (1.6-8.9); Platelet Count 320 K/mcL (140-400); Red Blood Count 5.09 M/mcL (4.19-5.50); Red Cell Distribution Width 12.4 % (11.5-14.5); White Blood Count 10.1 K/mcL (4.3-11.1)
[2022-01-31] MEDS: Budesonide/Formoterol 160/4.5 1 PUFF INH IH SCH (07:45)
[2022-01-31 07:50] LABS: BUN/Creatinine Ratio 23 (6-26); Blood Urea Nitrogen 18 mg/dL (8-23); Calcium 9.5 mg/dL (8.6-10.3); Carbon Dioxide 28 mEq/L (23-29); Chloride 104 mEq/L (98-107); Glucose 92 mg/dL (70-105); Osmolality,Calculated 290 (280-300); Sodium 139 mEq/L (136-145); eGFR For African Americans > 60 (> 60); eGFR For Non-African Americans > 60 (> 60)
[2022-01-31] MEDS: Vitamin E 200 UNIT (90MG) CAPSULE PO SCH (08:20)
[2022-01-31] MEDS: Acetaminophen 325 MG TABLET PO PRN (08:20)
[2022-01-31] MEDS: Megestrol Acetate 400 MG/10 ML UDC PO SCH (08:20)
[2022-01-31] MEDS: Gabapentin 300 MG CAPSULE PO SCH (08:20)
[2022-01-31] MEDS: Multivit/Ca/Min/Fe/FA 1 TAB TABLET PO SCH (08:21)
[2022-01-31] MEDS: Aspirin Enteric Coated 81 MG Tablet PO SCH (08:21)
[2022-01-31] MEDS: dexAMETHasone 4 MG TABLET PO SCH (08:21)
[2022-01-31] MEDS: QUEtiapine Fumarate 25 MG TABLET PO SCH (08:21)
[2022-01-31] MEDS: (Cariprazine Hcl [Vraylar] 3 MG Capsule) PO SCH (08:23)
[2022-01-31 11:40] VITALS: BP 125/73; PULSE 68; TEMP 98.5
[2022-01-31 15:13] VITALS: O2SAT 94
== END 2022-01-31 15:00 | disposition other institution (70) | DRG 177 ==
LOC: SUPCPDRO → EMEROOPIK 13:51 → INPPIK 13:51
PROVIDERS: ADMIT Internal Medicine; ATTEND Internal Medicine

== ENCOUNTER 2022-01-31 13:40 | Inpatient (IN) ==
[2022-01-31] MEDS ORDERED: diazePAM 5 MG TABLET PO PRN (15:25)
[2022-01-31] MEDS: lisinopriL 10 MG TABLET PO SCH (21:11)
[2022-01-31] MEDS: Gabapentin 300 MG CAPSULE PO SCH (21:11)
[2022-01-31] MEDS: Budesonide/Formoterol 160/4.5 1 PUFF INH IH SCH (21:59)
[2022-02-01] MEDS: *HR* Enoxaparin 40 MG/0.4 ML SYRINGE SQ SCH (05:52)
[2022-02-01 07:21] LABS: Basophils # 0.1 K/mcL (0.0-0.2); Basophils % 0.9 %; Eosinophils # 0.1 K/mcL (0.0-0.6); Eosinophils % 0.4 %; Hematocrit 43.9 % (37.5-50.1); Hemoglobin 14.7 g/dL (12.9-16.9); Lymphocytes # 3.2 K/mcL (0.6-4.6); Mean Corpuscular HGB Conc 33.5 g/dL (31.6-35.5); Mean Corpuscular Hemoglobin 30.6 pg (28.0-33.3); Mean Corpuscular Volume 91.5 fL (83.0-100.0); Mean Platelet Volume 9.1 fL (9.4-12.4); Monocytes # 0.8 K/mcL (0.0-1.3); Monocytes % 7.4 %; Neutrophils # 6.6 K/mcL (1.6-8.9); Platelet Count 337 K/mcL (140-400); Red Cell Distribution Width 12.5 % (11.5-14.5); Segmented Neutrophils % 59.3 %; White Blood Count 11.1 K/mcL (4.3-11.1)
[2022-02-01 07:44] LABS: BUN/Creatinine Ratio 28 (6-26); Blood Urea Nitrogen 21 mg/dL (8-23); Calcium 9.4 mg/dL (8.6-10.3); Carbon Dioxide 27 mEq/L (23-29); Chloride 103 mEq/L (98-107); Glucose 86 mg/dL (70-105); Osmolality,Calculated 286 (280-300); Sodium 137 mEq/L (136-145); eGFR For African Americans > 60 (> 60); eGFR For Non-African Americans > 60 (> 60)
[2022-02-01] MEDS ORDERED: QUEtiapine Fumarate 25 MG TABLET PO SCH (09:00)
[2022-02-01] MEDS: Budesonide/Formoterol 160/4.5 1 PUFF INH IH SCH ×2 (09:05→21:14)
[2022-02-01] MEDS: lisinopriL 10 MG TABLET PO SCH ×2 (10:56→22:47)
[2022-02-01] MEDS: Aspirin Enteric Coated 81 MG Tablet PO SCH (10:56)
[2022-02-01] MEDS: Vitamin E 200 UNIT (90MG) CAPSULE PO SCH (10:56)
[2022-02-01] MEDS: dexAMETHasone 4 MG TABLET PO SCH (10:57)
[2022-02-01] MEDS: (Omega-3/Dha/Epa/Fish Oil [Fish Oil 1,000 Mg Softgel]) PO SCH (10:57)
[2022-02-01] MEDS: Gabapentin 300 MG CAPSULE PO SCH ×3 (10:57→22:48)
[2022-02-01] MEDS: (Cariprazine Hcl [Vraylar] 3 MG Capsule) PO SCH (10:57)
[2022-02-01] MEDS: Multivit/Ca/Min/Fe/FA 1 TAB TABLET PO SCH (10:57)
[2022-02-01] MEDS ORDERED: Perflutren Lipid Microsphere 1.3 ML in 0.9 % Sodium Chloride 8.7 ML IVP PRN (14:39)
[2022-02-01] MEDS: Furosemide 40 MG TABLET PO SCH (17:37)
[2022-02-01] MEDS: QUEtiapine Fumarate 25 MG TABLET PO SCH (22:48)
[2022-02-02] MEDS: *HR* Enoxaparin 40 MG/0.4 ML SYRINGE SQ SCH (05:44)
[2022-02-02] MEDS: (Cariprazine Hcl [Vraylar] 3 MG Capsule) PO SCH (08:59)
[2022-02-02] MEDS: (Omega-3/Dha/Epa/Fish Oil [Fish Oil 1,000 Mg Softgel]) PO SCH (08:59)
[2022-02-02] MEDS: Budesonide/Formoterol 160/4.5 1 PUFF INH IH SCH ×2 (09:15→21:25)
[2022-02-02] MEDS: Aspirin Enteric Coated 81 MG Tablet PO SCH (09:47)
[2022-02-02] MEDS: Vitamin E 200 UNIT (90MG) CAPSULE PO SCH (09:47)
[2022-02-02] MEDS: Furosemide 40 MG TABLET PO SCH (09:47)
[2022-02-02] MEDS: lisinopriL 10 MG TABLET PO SCH ×2 (09:47→19:36)
[2022-02-02] MEDS: Multivit/Ca/Min/Fe/FA 1 TAB TABLET PO SCH (09:47)
[2022-02-02] MEDS: Acetaminophen 325 MG TABLET PO PRN (09:47)
[2022-02-02] MEDS: dexAMETHasone 4 MG TABLET PO SCH (09:48)
[2022-02-02] MEDS: Gabapentin 300 MG CAPSULE PO SCH ×3 (09:48→19:36)
[2022-02-02] MEDS: QUEtiapine Fumarate 25 MG TABLET PO SCH (19:36)
[2022-02-03] MEDS: *HR* Enoxaparin 40 MG/0.4 ML SYRINGE SQ SCH (06:21)
[2022-02-03] MEDS: (Omega-3/Dha/Epa/Fish Oil [Fish Oil 1,000 Mg Softgel]) PO SCH (08:07)
[2022-02-03] MEDS: Budesonide/Formoterol 160/4.5 1 PUFF INH IH SCH ×2 (08:14→21:09)
[2022-02-03] MEDS: Vitamin E 200 UNIT (90MG) CAPSULE PO SCH (09:16)
[2022-02-03] MEDS: Furosemide 40 MG TABLET PO SCH (09:16)
[2022-02-03] MEDS: lisinopriL 10 MG TABLET PO SCH ×2 (09:16→21:04)
[2022-02-03] MEDS: Multivit/Ca/Min/Fe/FA 1 TAB TABLET PO SCH (09:16)
[2022-02-03] MEDS: (Cariprazine Hcl [Vraylar] 3 MG Capsule) PO SCH (09:17)
[2022-02-03] MEDS: Gabapentin 300 MG CAPSULE PO SCH ×3 (09:17→21:04)
[2022-02-03] MEDS: Aspirin Enteric Coated 81 MG Tablet PO SCH (09:17)
[2022-02-03] MEDS: QUEtiapine Fumarate 25 MG TABLET PO SCH (21:04)
[2022-02-04] MEDS: *HR* Enoxaparin 40 MG/0.4 ML SYRINGE SQ SCH (06:34)
[2022-02-04] MEDS: (Omega-3/Dha/Epa/Fish Oil [Fish Oil 1,000 Mg Softgel]) PO SCH (07:28)
[2022-02-04] MEDS: Budesonide/Formoterol 160/4.5 1 PUFF INH IH SCH ×2 (08:22→21:52)
[2022-02-04] MEDS: Vitamin E 200 UNIT (90MG) CAPSULE PO SCH (09:35)
[2022-02-04] MEDS: lisinopriL 10 MG TABLET PO SCH ×2 (09:35→20:39)
[2022-02-04] MEDS: Multivit/Ca/Min/Fe/FA 1 TAB TABLET PO SCH (09:35)
[2022-02-04] MEDS: Aspirin Enteric Coated 81 MG Tablet PO SCH (09:35)
[2022-02-04] MEDS: Gabapentin 300 MG CAPSULE PO SCH ×3 (09:35→20:39)
[2022-02-04] MEDS: Furosemide 40 MG TABLET PO SCH (09:35)
[2022-02-04] MEDS: (Cariprazine Hcl [Vraylar] 3 MG Capsule) PO SCH (09:36)
[2022-02-04] MEDS: QUEtiapine Fumarate 25 MG TABLET PO SCH (20:39)
[2022-02-05] MEDS: *HR* Enoxaparin 40 MG/0.4 ML SYRINGE SQ SCH (06:01)
[2022-02-05] MEDS: Budesonide/Formoterol 160/4.5 1 PUFF INH IH SCH ×2 (08:16→20:50)
[2022-02-05] MEDS: lisinopriL 10 MG TABLET PO SCH ×2 (08:40→19:52)
[2022-02-05] MEDS: Gabapentin 300 MG CAPSULE PO SCH ×3 (08:40→19:49)
[2022-02-05] MEDS: Furosemide 20 MG TABLET PO SCH (08:40)
[2022-02-05] MEDS: Multivit/Ca/Min/Fe/FA 1 TAB TABLET PO SCH (08:40)
[2022-02-05] MEDS: Aspirin Enteric Coated 81 MG Tablet PO SCH (08:40)
[2022-02-05] MEDS: Vitamin E 200 UNIT (90MG) CAPSULE PO SCH (08:40)
[2022-02-05] MEDS: (Cariprazine Hcl [Vraylar] 3 MG Capsule) PO SCH (08:51)
[2022-02-05] MEDS: (Omega-3/Dha/Epa/Fish Oil [Fish Oil 1,000 Mg Softgel]) PO SCH (08:52)
[2022-02-05] MEDS: QUEtiapine Fumarate 25 MG TABLET PO SCH (19:49)
[2022-02-06 06:05] LABS: Basophils # 0.1 K/mcL (0.0-0.2); Basophils % 0.5 %; Eosinophils # 0.2 K/mcL (0.0-0.6); Eosinophils % 2.2 %; Hematocrit 45.2 % (37.5-50.1); Hemoglobin 14.8 g/dL (12.9-16.9); Immature Granulocytes % 1.3 % (0-4); Lymphocytes # 3.3 K/mcL (0.6-4.6); Mean Corpuscular HGB Conc 32.7 g/dL (31.6-35.5); Mean Corpuscular Hemoglobin 30.1 pg (28.0-33.3); Mean Corpuscular Volume 92.1 fL (83.0-100.0); Mean Platelet Volume 8.9 fL (9.4-12.4); Monocytes # 0.6 K/mcL (0.0-1.3); Monocytes % 5.9 %; Neutrophils # 6.5 K/mcL (1.6-8.9); Platelet Count 343 K/mcL (140-400); Red Blood Count 4.91 M/mcL (4.19-5.50); Red Cell Distribution Width 12.6 % (11.5-14.5); Segmented Neutrophils % 60.1 %; White Blood Count 10.9 K/mcL (4.3-11.1)
[2022-02-06] MEDS: *HR* Enoxaparin 40 MG/0.4 ML SYRINGE SQ SCH (06:35)
[2022-02-06 06:36] LABS: Alanine Aminotransferase 36 Units/L (7-52); Albumin 3.6 g/dL (3.5-5.7); Albumin/Globulin Ratio 1.1 (1.1-2.2); Alkaline Phosphatase 106 Units/L (34-104); Aspartate Amino Transferase 12 Units/L (13-39); BUN/Creatinine Ratio 33 (6-26); Bilirubin,Total 0.6 mg/dL (0.3-1.0); Blood Urea Nitrogen 34 mg/dL (8-23); Calcium 9.3 mg/dL (8.6-10.3); Carbon Dioxide 27 mEq/L (23-29); Chloride 107 mEq/L (98-107); Globulin 3.2 g/dL (2.4-3.5); Glucose 81 mg/dL (70-105); Osmolality,Calculated 297 (280-300); Potassium 5.5 mEq/L (3.5-5.1); Sodium 140 mEq/L (136-145); Total Protein 6.8 g/dL (6.4-8.9); eGFR For African Americans > 60 (> 60); eGFR For Non-African Americans > 60 (> 60)
[2022-02-06] MEDS: Budesonide/Formoterol 160/4.5 1 PUFF INH IH SCH ×2 (08:49→20:55)
[2022-02-06] MEDS: Furosemide 20 MG TABLET PO SCH (09:42)
[2022-02-06] MEDS: (Cariprazine Hcl [Vraylar] 3 MG Capsule) PO SCH (09:42)
[2022-02-06] MEDS: Multivit/Ca/Min/Fe/FA 1 TAB TABLET PO SCH (09:42)
[2022-02-06] MEDS: Vitamin E 200 UNIT (90MG) CAPSULE PO SCH (09:42)
[2022-02-06] MEDS: lisinopriL 10 MG TABLET PO SCH ×2 (09:42→19:57)
[2022-02-06] MEDS: Aspirin Enteric Coated 81 MG Tablet PO SCH (09:42)
[2022-02-06] MEDS: Gabapentin 300 MG CAPSULE PO SCH ×3 (09:42→19:57)
[2022-02-06] MEDS: (Omega-3/Dha/Epa/Fish Oil [Fish Oil 1,000 Mg Softgel]) PO SCH (09:43)
[2022-02-06] MEDS: Acetaminophen 325 MG TABLET PO PRN (09:44)
[2022-02-06] MEDS: QUEtiapine Fumarate 25 MG TABLET PO SCH (19:58)
[2022-02-07] MEDS: *HR* Enoxaparin 40 MG/0.4 ML SYRINGE SQ SCH (06:17)
[2022-02-07 06:57] LABS: BUN/Creatinine Ratio 31 (6-26); Blood Urea Nitrogen 27 mg/dL (8-23); Calcium 8.5 mg/dL (8.6-10.3); Carbon Dioxide 25 mEq/L (23-29); Chloride 106 mEq/L (98-107); Glucose 85 mg/dL (70-105); Osmolality,Calculated 288 (280-300); Sodium 137 mEq/L (136-145); eGFR For African Americans > 60 (> 60); eGFR For Non-African Americans > 60 (> 60)
[2022-02-07 07:38] VITALS: BP 109/64; PULSE 65; TEMP 97.7
[2022-02-07] MEDS: Gabapentin 300 MG CAPSULE PO SCH (09:07)
[2022-02-07] MEDS: lisinopriL 10 MG TABLET PO SCH (09:07)
[2022-02-07] MEDS: (Cariprazine Hcl [Vraylar] 3 MG Capsule) PO SCH (09:07)
[2022-02-07] MEDS: Multivit/Ca/Min/Fe/FA 1 TAB TABLET PO SCH (09:07)
[2022-02-07] MEDS: Vitamin E 200 UNIT (90MG) CAPSULE PO SCH (09:07)
[2022-02-07] MEDS: Furosemide 20 MG TABLET PO SCH (09:07)
[2022-02-07] MEDS: Aspirin Enteric Coated 81 MG Tablet PO SCH (09:07)
[2022-02-07] MEDS: Budesonide/Formoterol 160/4.5 1 PUFF INH IH SCH (09:28)
[2022-02-07] MEDS: (Omega-3/Dha/Epa/Fish Oil [Fish Oil 1,000 Mg Softgel]) PO SCH (09:43)
[2022-02-07 10:41] VITALS: RESP 18; O2SAT 92
== END 2022-02-07 11:07 | disposition home health service (06) | DRG 177 ==
LOC: INPPIK 17:54
PROVIDERS: ADMIT Family Medicine; ATTEND Family Medicine